=== PATIENT | female | born 1940 | race Caucasian/White ===

== ENCOUNTER 2018-03-28 05:50 | Day surgery (SDC) | payer MEDICARE ==
[2018-03-28] MEDS ORDERED: DIPRIVAN 200 MG/20 ML IV ONE (05:51)
[2018-03-28] MEDS ORDERED: Lactated Ringers 1,000 ML IV SCH (06:00)
[2018-03-28 08:07] VITALS: O2SAT 100
[2018-03-28 08:41] VITALS: BP 160/82; PULSE 62
--- NOTE | 2018-03-28 08:53 | HP ---
DATE OF SURGERY: 03/28/2018 HISTORY OF PRESENT ILLNESS: The patient is a 77 year-old with anemia unclear etiology, no bloody stool, no prior history of colonoscopy. Family history negative for colon cancer. She denies any bowel movement pain. No change in bowel movements. She has had anemia. She is in need of upper and lower endoscopy for further evaluation. PAST MEDICAL HISTORY: Diabetes, renal disease, hyperlipidemia and some reflux, hypothyroidism. PAST SURGICAL HISTORY: Coronary artery bypass graft. Hysterectomy in the past. MEDICATIONS: Amlodipine, atorvastatin, naphazoline eye drops, Bystolic, cholecalciferol, clonazepam, fluconazole, Furosemide, ibandronate, isosorbide mononitrate, levothyroxine for hypothyroidism, Metformin, omeprazole, potassium chloride, Protabol injection in the past, tramadol, triamcinolone cream, Voltaren gel. ALLERGIES: AMOXICILLIN, ASPIRIN, BACITRACIN, BETAMETHASONE, CEFPODOXIME. FAMILY HISTORY: Heart disease. Negative for colon cancer. SOCIAL HISTORY: No smoking or alcohol abuse. REVIEW OF SYSTEMS: Twelve systems reviewed pertinent for as noted above. No chest pain or palpitations other systems negative or noncontributory as above and per multiple medical problems as mentioned above. PHYSICAL EXAMINATION: GENERAL: No acute distress. HEENT: Sclerae nonicteric. NECK: No JVD. CHEST: Equal excursion, nonlabored breathing. CVS: Regular rate and rhythm. ABDOMEN: Soft. No peritoneal signs. EXTREMITIES: No significant edema. NEURO: Alert, oriented, moving extremities symmetrically. No gross motor deficits noted. RECTAL: Deferred timed to endoscopy exam. IMPRESSION: Anemia of unclear etiology. I feel she would benefit from upper and lower endoscopy for further evaluation, shown the risk sheet and explained the procedure in detail but not limited to bleeding or infection, small risk of bowel injury or perforation possibly requiring further procedure, risk of missed or nondiagnosis or incomplete exam possibly requiring barium enema, other studies or procedures, general risk of anesthesia or sedation, risk of bowel prep but not limited to. She understands and agrees to the planned procedure, will proceed with EGD and colonoscopy as an outpatient. She understands the possibility may not be able to determine the etiology of her anemia. 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 She understands and agrees to the planned procedure. Will proceed with colonoscopy and EGD as an outpatient.
--- NOTE | 2018-03-28 09:27 | OP ---
SURGERY DATE/TIME: 03/28/2018 0706 PREOPERATIVE DIAGNOSES: Anemia of unclear etiology; rule out upper and lower GI sources. POSTOPERATIVE DIAGNOSES: 1) Minimal gastritis. 2) Small patchy inflammation proximal esophagus. 3) Small area of inflammation mid body of stomach. 4) Mild diverticulosis. 5) Small internal/external hemorrhoids. 6) Small polyp ascending colon. 7) Small raised lesion versus hyperplastic lesion rectum. PROCEDURES: 1) EGD with cold biopsy of the antrum to evaluate for Helicobacter pylori. 2) Biopsy mid body area of inflammation. 3) Cold biopsy proximal esophagus inflamed area near gastroesophageal junction. 4) Cold biopsy of thickened area gastric side of gastroesophageal junction. 5) Colonoscopy to terminal ileum. 6) Retrograde ileoscopy. 7) Random cold biopsy of the ileum. 8) Hot biopsy removal small ascending colon polyps x2. 9) Hot biopsy small raised lesion versus hyperplastic lesion of rectum. SURGEON: Dr. Patrick Thompson. ANESTHESIA: MAC. ESTIMATED BLOOD LOSS: Minimal. INDICATIONS: As noted above. Risks and benefits explained in detail and not limited to and consent obtained. DESCRIPTION OF PROCEDURE AND FINDINGS: The patient is taken to the operating room/endoscopy suite. MAC anesthesia introduced. After official time out and no disagreement with planned procedure a bite block positioned. Video gastroscope easily passed down the esophagus through the gastroesophageal junction about 38 cm though the patent pylorus to the junction of second and third portion of the duodenum. Duodenum and duodenal bulb grossly unremarkable. Scope pulled back in the stomach and had some minimal gastritis. Cold biopsy taken for JENELLE-test in the antrum. There was a mid body patchy area of inflammation. Cold biopsy taken for further evaluation. Good hemostasis noted. On retroflex the gastroesophageal junction was snug against the scope. No signs of any hiatal hernia. There was a little erythematous area 1 cm or two from the gastroesophageal junction. Cold biopsy is taken, this appeared to have adequate hemostasis. Scope is straightened. Gastroesophageal junction is about 38 cm. Z-line fairly crisp. There was a little thickening at the gastric side of the gastroesophageal junction this was biopsied for completeness to rule out other etiology. Otherwise the remainder of the esophagus other than being a little bit of patulous esophagus with some tertiary contractions there were no signs of any obvious masses on withdrawal of the scope. Attention is then turned to the colonoscopy part of the exam. Digital rectal exam did not reveal any rectal masses. She did have some small internal and external hemorrhoids. There were no palpable mass. Video colonoscope inserted and passed up through the tortuous sigmoid, descending, transverse and ascending colon around to the right lower quadrant. Appendiceal orifice and valve well visualized. The scope was able to be passed up the terminal ileum. Retrograde ileoscopy was performed which was grossly unremarkable. Given her symptoms a random cold biopsies were taken to evaluate for other sources of anemia. Good hemostasis noted. Scope pulled back in the ascending colon. There were two small polyps one was removed with hot biopsy forceps with brief bursts of cautery in the ascending colon and the second one was removed in two pieces. It appeared to be removed completely with brief bursts of cautery. Good hemostasis noted. The scope was then slowly and carefully withdrawn. Prep overall was fair. A little bit of liquidy semisolid stool suction irrigated as well as possible. Slow careful withdrawal of the scope for 10 to 12 minutes. No signs of any large polyps, masses or obstructing lesions. Back in the rectum there were two or three very small 2 mm raised hyperplastic lesions versus early polyps these were removed with hot biopsy forceps with brief bursts of cautery. Otherwise she had some internal and external hemorrhoids. She had a few diverticula in the left colon but no signs of any large polyps, masses or obstructing lesions. The scope is withdrawn. There is no family or friends available here to discuss the findings with. There is no major source of her anemia identified, pending path results. As she had persistent anemia she may need further work up either refer to GI for consideration of PillCam versus checking a CT to rule out other etiology of anemia versus follow up with a selenium plant operator.
== END 2018-03-28 08:55 | disposition home or self-care (01) ==
LOC: SDC 05:50
PROVIDERS: ATTEND Surgery
DX: K29.70 Gastritis, unspecified, without bleeding (principal); K20.9 Esophagitis, unspecified; D64.9 Anemia, unspecified; K57.90 Diverticulosis of intestine, part unspecified, without perforation or abscess without bleeding; K64.4 Residual hemorrhoidal skin tags; K64.8 Other hemorrhoids; K63.5 Polyp of colon; K62.9 Disease of anus and rectum, unspecified; E11.9 Type 2 diabetes mellitus without complications; Z79.4 Long term (current) use of insulin; I25.810 Atherosclerosis of coronary artery bypass graft(s) without angina pectoris; N28.9 Disorder of kidney and ureter, unspecified; E78.5 Hyperlipidemia, unspecified; K21.9 Gastro-esophageal reflux disease without esophagitis; E03.9 Hypothyroidism, unspecified; Z79.899 Other long term (current) drug therapy
CPT/HCPCS: 87081; 88305; 94250; 99100; J2704

== ENCOUNTER 2018-08-08 08:20 | Day surgery (SDC) | payer MEDICARE ==
[2018-08-08] MEDS ORDERED: Ketamine HCl 50 MG/ML IV ONE (08:21)
[2018-08-08] MEDS ORDERED: DIPRIVAN 200 MG/20 ML IV ONE (08:21)
[2018-08-08] MEDS ORDERED: Lactated Ringers 1,000 ML IV ONE (08:28)
[2018-08-08] MEDS ORDERED: Lactated Ringers 1,000 ML IV SCH (08:30)
--- NOTE | 2018-08-08 09:49 | HP ---
DATE OF SURGERY: 08/08/2018 HISTORY OF PRESENT ILLNESS: The patient is a 78 year-old with endoscopy back in March with some polyps at that time and gastropathy. Recently she had a CT scan with question of periaortic adenopathy, question whether she had distal esophageal mass. There was no obvious mass back in March. Given the CT findings recently I felt she warrants upper endoscopy re-evaluation as well as referral for endoscopic ultrasound for further evaluation. She did have recent thyroid biopsy with some benign follicular cells with some simple features with absent colloid that was benign per the pathologist. PAST MEDICAL HISTORY: Diabetes, renal disease, hyperkalemia, reflux, hypothyroidism. She has had colon polyps in the past. PAST SURGICAL HISTORY: She had upper and lower endoscopy in the past. Hysterectomy in the past. Coronary artery bypass graft in the past. MEDICATIONS: Amlodipine, atorvastatin, eye drops, Bystolic, cholecalciferol, fluconazole, Furosemide, ibandronate, isosorbide mononitrate, levothyroxine for hypothyroidism, Metformin. She is on omeprazole, potassium chloride, Protabol injection in the past, tramadol, triamcinolone cream, Voltaren gel. ALLERGIES: AMOXICILLIN, ASPIRIN, BACITRACIN, BETAMETHASONE, CEFPODOXIME. FAMILY HISTORY: Heart disease. Negative for esophageal or colon cancer. SOCIAL HISTORY: No smoking or alcohol abuse. REVIEW OF SYSTEMS: Twelve systems reviewed pertinent for as noted above. No chest pain or palpitations other systems negative or noncontributory as above and per multiple medical problems as mentioned above. PHYSICAL EXAMINATION: GENERAL: No acute distress. HEENT: Sclerae nonicteric. NECK: No JVD. CHEST: Equal excursion, nonlabored breathing. CVS: Regular rate and rhythm. ABDOMEN: Soft. No peritoneal signs. EXTREMITIES: No significant edema. NEURO: Alert, oriented, moving extremities symmetrically. No gross motor deficits noted. RECTAL: Deferred timed to endoscopy exam. IMPRESSION: Some vague adenopathy unclear etiology. CT scan showed thickening distal esophagus. She did not have apparent mass back there about six months ago but given the recent CT findings, I feel she warrants follow up upper endoscopy as well as endoscopic ultrasound and colonoscope. She had colonoscope that showed some small tubular adenoma or small polyp, no obvious mass to account for her adenopathy. She is not interested in follow up colonoscopy currently but if all of her studies all are negative may need to consider that versus laparoscopy and laparotomy for further evaluation. Otherwise general risk explained of upper endoscopy possible biopsy, risk of bleeding or infection, risk of bowel injury or perforation possibly requiring further procedure, risk of missed or nondiagnosis or inability to diagnose the etiology of her symptoms possibly requiring other procedures, general risk of anesthesia or sedation but not limited to. She understands and agrees to the planned procedure, will proceed with EGD possible biopsy as an outpatient.
[2018-08-08 12:37] VITALS: BP 164/58; PULSE 64; O2SAT 95
--- NOTE | 2018-08-08 13:20 | OP ---
SURGERY DATE/TIME: 08/08/2018 1047 PREOPERATIVE DIAGNOSES: 1) History of some periaortic adenopathy of unclear etiology. 2) History of thickening distal esophagus on CT scan, need for follow up upper endoscopy. POSTOPERATIVE DIAGNOSIS: Mild gastritis. PROCEDURES: 1) EGD with cold biopsy of the antrum to evaluate for Helicobacter pylori. 2) Multiple cold biopsies of inflammation on gastric side of the gastroesophageal junction. 3) Multiple cold biopsies of distal esophagus. SURGEON: Dr. Patrick Thompson. ANESTHESIA: MAC. ESTIMATED BLOOD LOSS: Minimal. INDICATIONS: As noted above. Risks and benefits explained in detail and not limited to and consent obtained. DESCRIPTION OF PROCEDURE AND FINDINGS: The patient is taken to the operating room. MAC anesthesia introduced. After official time out and no disagreement with planned procedure, a bite block positioned. Video gastroscope easily passed down through the esophagus. She had a little bit of patulous, whether she had a little bit of a Schatzki's ring, there was no obstruction in this area that required dilation. She had not been complaining of problems, just the esophagus a little more patulous proximal to that area. Scope easily passed through there. The gastroesophageal junction itself was fairly crisp with some mild inflammation proximally. No evidence of any obvious esophageal mass. Scope passed though the patent pylorus to the junction of the second and third portion of the duodenum. Duodenum and duodenal bulb grossly unremarkable. Back in the stomach there is minimal erythema and cold biopsy taken to evaluate for Helicobacter pylori. On retroflex right at the gastroesophageal junction there was some inflammation on the gastric-side of the gastroesophageal junction. Multiple cold biopsies were taken for definitive path. This appeared more inflammatory than neoplastic but biopsy for completeness. This did not appear to have been there previously. The scope was straightened. The gastroesophageal junction about 33 cm. Z-line was fairly crisp. Multiple biopsies had been taken of this inflammation on the gastric side of the gastroesophageal junction. Multiple biopsies were also taken on the esophageal side of distal esophagus given the CT scan findings but there was no obvious visible esophageal mass. Other than that she had a little bit questionable early Schatzki's ring to the esophagus a little more proximal to this but this is not an obstructing point at this point. It did not require dilatation. The remainder of the esophagus grossly is unremarkable. Scope is withdrawn. The patient tolerated the procedure well. There was no family here to discuss the findings with. Await final path report. The patient also has an endoscopic ultrasound pending to evaluate her periaortic adenopathy.
== END 2018-08-08 12:30 | disposition home or self-care (01) ==
LOC: SDC 08:20
PROVIDERS: ATTEND Surgery
DX: K29.70 Gastritis, unspecified, without bleeding (principal); K31.7 Polyp of stomach and duodenum
CPT/HCPCS: 87081; 88305; 99100; J2704

== ENCOUNTER 2019-03-21 07:20 | Day surgery (SDC) | payer MEDICARE ==
[~2019-03-21 07:20] MED LIST: Lactated Ringers 1,000 ML IV SCH; TETRACAINE 0.5% STERI-UNIT SOL OP ONE; [UNRECOGNIZED DRUG - OTHER] OP ONE
[2019-03-21] MEDS ORDERED: Lactated Ringers 1,000 ML IV ONE (07:34)
[2019-03-21] MEDS ORDERED: Zofran 4 MG/2 ML VIAL IV PRN (09:00)
[2019-03-21] MEDS ORDERED: ACETAZOLAMIDE 250 MG TABLET PO ONE (09:00)
[2019-03-21] MEDS ORDERED: DIPRIVAN 200 MG/20 ML IV ONE (09:37)
[2019-03-21] MEDS ORDERED: LIDOCAINE HCL 1% AMPUL 5 ML IJ ONE (10:00)
[2019-03-21] MEDS ORDERED: BETADINE 5% OPHTHALMIC 30 ML OP ONE (10:00)
[2019-03-21] MEDS ORDERED: Epinephrine Preservative Free 1 MG/ML INTRAOP ONE (10:00)
[2019-03-21 10:53] VITALS: BP 155/64; PULSE 66; O2SAT 98
--- NOTE | 2019-03-21 13:47 | OP ---
DATE/TIME OF OPERATION: 03/21/2019 0947 TIME DICTATED: 1307 PREOPERATIVE DIAGNOSIS: Senile cataract of left eye. POSTOPERATIVE DIAGNOSIS: Senile cataract of left eye. SURGEON: Rabia Monsivais MD PICTURES EDITOR: None. OPERATION: Cataract extraction of left eye with an intraocular lens implant. STANDARD __X___ COMPLEX ANESTHESIA: MAC. ___X___ Monitored anesthesia care in combination with topical and intra-cameral anesthesia (because of the established specific risk of reflux, arrhythmias, or an anxiety attack associated with ocular manipulation as well as difficulty of the hotel room attendant to manage such potentially catastrophic events while simultaneously attempting to complete the surgical procedure, it was deemed necessary for the patient's safety to have an anesthesiologist or a nurse boston cutter present during the procedure whenever possible. The anesthesiologist or the nurse boston cutter was utilized to monitor and regulate the intravenous sedation of the patient, so the patient was cooperative, relaxed, and comfortable). Topical anesthesia using Tetracaine eye drops together with intra cameral anesthesia using Lidocaine 1% MPF. The nurse was utilized to monitor the patient. ANESTHESIA PROVIDER: Deondre Ballard CRNA. COMPLICATIONS: None. BLOOD LOSS: None. INDICATIONS: The patient is undergoing cataract surgery in the hopes of eliminating the visual complaints and difficulty. PROCEDURE: After arriving at the facility's outpatient surgery area, an IV was started; the patient was given 5 mg of p.o. Versed. (If an anesthesia provider was not monitoring the patient) The patient was then given topical anesthetic Tetracaine eye drops. A cotton pellet was soaked into a solution of a combination of Zymaxid 0.5%, Chris-Synephrine 2.5% and Ocufen (other drops might have been substituted referenced in the patient's record). The pellet was inserted by the RN into the lower conjunctival cul-de-sac with a sterile forceps and left for 20 minutes. The pellet was then removed by the RN with a sterile forceps before taking the patient to the operating room. The preoperative area nurse identified the patient and marked the correct eye to be operated on. I identified the correct eye to be operated on and marked it appropriately in the outpatient surgery area. The patient was then taken into the operating room. Tetracaine eye drops were installed again in the correct eye. The eyelids and the lashes and the lid margins were scrubbed with Betadine solution. One drop of the diluted Betadine solution was placed in the conjunctival cul-de-sac for 45 seconds and then was irrigated. A drop of Tetracaine Gel was placed in the conjunctival cul-de-sac. The patient's forehead was taped to secure it during the procedure. The patient was monitored. The patient was then draped in the usual way for this procedure. An eye speculum was used to separate the eyelids. The eye was then fixated and a temporal 2.5 mm incision was made in the clear cornea temporally at the limbus. Through the incision, 0.25 cc of 1% non-preserved lidocaine was injected into the anterior chamber for intracameral anesthesia. The anterior chamber was then filled with viscoelastic. The pupil was small. I felt that it would be safer to mechanically dilate the pupil. A Malyugin ring was used at this point which dilated the pupil. That was removed at the end of the procedure prior to aspiration of the viscoelastic from the anterior chamber and posterior to the intraocular lens implant. The cataract had a great amount of cortical changes. That rendered seeing the anterior capsule difficult for a safe performance of an anterior capsulotomy. I injected an air bubble into the anterior chamber. I then injected 1 ML of vision blue solution into the anterior chamber. The vision blue solution was irrigated from the anterior chamber after 30 seconds. The anterior capsule was stained which facilitated performing the anterior capsulotomy safely. After that was completed, a cystotome was introduced into the anterior chamber and a round anterior capsulotomy was performed. The capsule was removed by a forceps. Hydrodissection was next carried utilizing a 25-gauge cannula and balanced salt solution to delineate the cortical material from the capsule and the nucleus from the cortical material. The nucleus was rotated freely into the capsular bag with no difficulty. The phaco tip of the [employer] Phacoemulsifier was introduced into the anterior chamber and two grooves were made into the nucleus 90 degrees apart. Using two spatulas resulted into the nucleus being fractured into four quadrants. The phaco tip was then used to remove each quadrant of the nucleus. Viscoelastic was used during this process to protect the corneal endothelium. Once the entire nucleus was removed, the phaco tip then was removed and the irrigation tip was introduced into the eye and the cortex was removed. The posterior capsule was polished. It was noticed that there was a tear into the posterior capsule with few vitreous strands into the pupil plan. An anterior vitrectomy was performed. A 29.50 diopter, [id number], posterior chamber lens implant, was inspected and found to be grossly normal. The implant was inserted into the implant injector cartridge; Viscoelastic again was introduced into the anterior chamber, which filled the capsular bag. The implant injector's cartridge tip was placed at the limbal wound and the posterior chamber implant was released into the capsular bag and rotated appropriately. The implant was found to be into the capsular bag and it was centered. 0.2 ml of Tri-Moxi was introduced via 27 gauge cannula into the vitreous cavity through the ciliary processes. Viscoelastic was aspirated from the anterior chamber and posterior to the intraocular lens implant from the capsular bag using the irrigating tip. The anterior chamber was irrigated and filled with 5 cc antibiotic solution (500 cc of BSS plus 2 ml of Fortaz 100 mg/ml) ( if patient was not allergic to the medication). The lips of the corneal incision were hydrated using BSS solution. The anterior chamber was checked and found to be water tight. ___X___ One drop each of antibiotic, steroid and NSAID drops (refer to chart for drops used) were placed in the conjunctival cul-de-sac of the operated eye. Patient tolerated the procedure quite well and left the operating room in satisfactory condition. DISCHARGE SUMMARY: The patient was released in stable condition. The patient and those with the patient were given an instruction sheet as of how to care for the eye after surgery as well as counseling on any abnormal laboratory studies by the postoperative RN. The patient was also given an appointment card for follow-up in the office and is to call immediately for any difficulties including but not limited to pain in the eye, decreased vision, discharge from the eye, headache and or fever. DISCHARGE DIAGNOSIS: Pseudophakia of left eye.
== END 2019-03-21 11:10 | disposition home or self-care (01) ==
LOC: SDC 07:20
PROVIDERS: ATTEND Ophthalmology
DX: H25.812 Combined forms of age-related cataract, left eye (principal); E11.9 Type 2 diabetes mellitus without complications; I10 Essential (primary) hypertension; I51.9 Heart disease, unspecified; E78.00 Pure hypercholesterolemia, unspecified; E03.9 Hypothyroidism, unspecified; Z79.899 Other long term (current) drug therapy
CPT/HCPCS: 82962; 99100; C1780; J0171; J2704; A9270-GY

== ENCOUNTER 2019-05-23 08:54 | Day surgery (SDC) | payer MEDICARE ==
[~2019-05-23 08:54] MED LIST changes: +ACETAZOLAMIDE 250 MG TABLET PO ONE; +NON-FORMULARY ITEM OP ONE; +Zofran 4 MG/2 ML VIAL IV PRN
[2019-05-23] MEDS ORDERED: Lactated Ringers 1,000 ML IV ONE ×2 (09:06→11:37)
[2019-05-23] MEDS ORDERED: BETADINE 5% OPHTHALMIC 30 ML OP ONE (10:00)
[2019-05-23] MEDS ORDERED: Epinephrine Preservative Free 1 MG/ML INTRAOP ONE (10:00)
[2019-05-23] MEDS ORDERED: LIDOCAINE HCL 1% AMPUL 5 ML IJ ONE (10:00)
[2019-05-23] MEDS ORDERED: DIPRIVAN 200 MG/20 ML IV ONE (11:48)
[2019-05-23 13:14] VITALS: O2SAT 97
[2019-05-23 13:21] VITALS: BP 153/61; PULSE 62
--- NOTE | 2019-05-23 13:54 | OP ---
DATE/TIME OF OPERATION: 05/23/2019 1148 TIME DICTATED: 1256 PREOPERATIVE DIAGNOSIS: Senile cataract of right eye. POSTOPERATIVE DIAGNOSIS: Senile cataract of right eye. SURGEON: Rabia Monsivais MD SHEET [employer]OP FOREMAN: None. OPERATION: Cataract extraction of right eye with an intraocular lens implant. STANDARD __X__ COMPLEX ANESTHESIA: MAC. 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 The anesthesiologist or the nurse smooth plater was utilized to monitor and regulate the intravenous sedation of the patient, so the patient was cooperative, relaxed, and comfortable). Topical anesthesia using Tetracaine eye drops together with intra cameral anesthesia using Lidocaine 1% MPF. The nurse was utilized to monitor the patient. ANESTHESIA PROVIDER: Deondre Ballard CRNA. COMPLICATIONS: None. BLOOD LOSS: None. INDICATIONS: The patient is undergoing cataract surgery in the hopes of eliminating the visual complaints and difficulty. PROCEDURE: After arriving at the facility's outpatient surgery area, an IV was started; the patient was given 5 mg of p.o. Versed. (If an anesthesia provider was not monitoring the patient) The patient was then given topical anesthetic Tetracaine eye drops. A cotton pellet was soaked into a solution of a combination of Zymaxid 0.5%, Chris-Synephrine 2.5% and Ocufen (other drops might have been substituted referenced in the patient's record). The pellet was inserted by the RN into the lower conjunctival cul-de-sac with a sterile forceps and left for 20 minutes. The pellet was then removed by the RN with a sterile forceps before taking the patient to the operating room. The preoperative area nurse identified the patient and marked the correct eye to be operated on. I identified the correct eye to be operated on and marked it appropriately in the outpatient surgery area. The patient was then taken into the operating room. Tetracaine eye drops were installed again in the correct eye. The eyelids and the lashes and the lid margins were scrubbed with Betadine solution. One drop of the diluted Betadine solution was placed in the conjunctival cul-de-sac for 45 seconds and then was irrigated. A drop of Tetracaine Gel was placed in the conjunctival cul-de-sac. The patient's forehead was taped to secure it during the procedure. The patient was monitored. The patient was then draped in the usual way for this procedure. An eye speculum was used to separate the eyelids. The eye was then fixated and a temporal 2.5 mm incision was made in the clear cornea temporally at the limbus. Through the incision, 0.25 cc of 1% non-preserved lidocaine was injected into the anterior chamber for intracameral anesthesia. The anterior chamber was then filled with viscoelastic. The pupil was small. I felt that it would be safer to mechanically dilate the pupil. A Malyugin ring was used at this point which dilated the pupil. That was removed at the end of the procedure prior to aspiration of the viscoelastic from the anterior chamber and posterior to the intraocular lens implant. The cataract had a great amount of cortical changes. That rendered seeing the anterior capsule difficult for a safe performance of an anterior capsulotomy. I injected an air bubble into the anterior chamber. I then injected 1 ML of vision blue solution into the anterior chamber. The vision blue solution was irrigated from the anterior chamber after 30 seconds. The anterior capsule was stained which facilitated performing the anterior capsulotomy safely. After that was completed, a cystotome was introduced into the anterior chamber and a round anterior capsulotomy was performed. The capsule was removed by a forceps. Hydrodissection was next carried utilizing a 25-gauge cannula and balanced salt solution to delineate the cortical material from the capsule and the nucleus from the cortical material. The nucleus was rotated freely into the capsular bag with no difficulty. The phaco tip of the [employer] Phacoemulsifier was introduced into the anterior chamber and two grooves were made into the nucleus 90 degrees apart. Using two spatulas resulted into the nucleus being fractured into four quadrants. The phaco tip was then used to remove each quadrant of the nucleus. Viscoelastic was used during this process to protect the corneal endothelium. Once the entire nucleus was removed, the phaco tip then was removed and the irrigation tip was introduced into the eye and the cortex was removed. The posterior capsule was polished. It was noticed that there was a tear into the posterior capsule with few vitreous strands into the pupil plan. An anterior vitrectomy was performed. A 25.00 diopter, [id number], posterior chamber lens implant, was inspected and found to be grossly normal. The implant was inserted into the implant injector cartridge; Viscoelastic again was introduced into the anterior chamber, which filled the capsular bag. The implant injector's cartridge tip was placed at the limbal wound and the posterior chamber implant was released into the capsular bag and rotated appropriately. The implant was found to be into the capsular bag and it was centered. 0.2 ml of Tri-Moxi was introduced via 27 gauge cannula into the vitreous cavity through the ciliary processes. Viscoelastic was aspirated from the anterior chamber and posterior to the intraocular lens implant from the capsular bag using the irrigating tip. The anterior chamber was irrigated and filled with 5 cc antibiotic solution (500 cc of BSS plus 2 ml of Fortaz 100 mg/ml) ( if patient was not allergic to the medication). The lips of the corneal incision were hydrated using BSS solution. The anterior chamber was checked and found to be water tight. ___X___ One drop each of antibiotic, steroid and NSAID drops (refer to chart for drops used) were placed in the conjunctival cul-de-sac of the operated eye. Patient tolerated the procedure quite well and left the operating room in satisfactory condition. DISCHARGE SUMMARY: The patient was released in stable condition. The patient and those with the patient were given an instruction sheet as of how to care for the eye after surgery as well as counseling on any abnormal laboratory studies by the postoperative RN. The patient was also given an appointment card for follow-up in the office and is to call immediately for any difficulties including but not limited to pain in the eye, decreased vision, discharge from the eye, headache and or fever. DISCHARGE DIAGNOSIS: Pseudophakia of right eye.
== END 2019-05-23 13:32 | disposition home or self-care (01) ==
LOC: SDC 08:54
PROVIDERS: ATTEND Ophthalmology
DX: H25.9 Unspecified age-related cataract (principal); I10 Essential (primary) hypertension; E03.9 Hypothyroidism, unspecified; E11.9 Type 2 diabetes mellitus without complications; F41.9 Anxiety disorder, unspecified; K21.9 Gastro-esophageal reflux disease without esophagitis; Z79.899 Other long term (current) drug therapy
CPT/HCPCS: 99100; C1780; J0171; J2704; A9270-GY

== ENCOUNTER 2021-02-07 08:43 | Inpatient (IN) | payer MEDICARE ==
--- NOTE | 2021-02-07 09:28 | ERPHSYRPT ---
- History of Present Illness Source: patient Exam Limitations: other (Poor historian) Patient Subjective Stated Complaint: pt here for a fal last night, she was unable to get up and was on floor all night, she called 911 this am, pt states she fell on her left side. Triage Nursing Assessment: pt alert, face mask in place, skin w/d/p. pt has scattered localized edema to both arms, bruising to left shoulder, bruising and skin abrasion to left elbow, moves all ext Physician History: 80 yo wf arrived per EMS after fall approx 19:00 02/06/21. Pt fell in bathroom and crawled to living room. She slipped and fell. Pt hit her head but denies LOC. She denies chest pain/dyspnea/fever. Pt complains of R posterior thoracic pain/L olecranon pain/L hip pain. Occurred: other (19:00 02/06/21) Reason for Fall: lost balance Injuries/Pain Location: head, back, pelvis Loss of Consciousness: no loss of consciousness Quality: aching Severity of Pain-Max: moderate Severity of Pain-Current: mild Modifying Factors: Improves With: movement Associated Symptoms (Fall): back pain, extremity injury, headache, No abdominal pain, No confusion, No chest pain, No dizziness, No lightheadedness, No muscle spasms, No nausea, No neck pain, No ringing in ears, No seizures, No shortness of breath, No slurred speech, No trouble walking, No vomiting, No vision changes Allergies/Adverse Reactions: amoxicillin [From Augmentin] Allergy (Unknown, Verified 02/07/21 09:01) pt states "i don't really know why all those are on my list and i have never had a really bad reaction from anything". aspirin Allergy (Unknown, Verified 02/07/21 09:01) bacitracin [From Neosporin ([id number])] Allergy (Unknown, Verified 02/07/21 09:01) betamethasone [From Lotrisone] Allergy (Unknown, Verified 02/07/21 09:01) cefpodoxime [From Vantin] Allergy (Unknown, Verified 02/07/21 09:01) cephalexin [From Keflex] Allergy (Unknown, Verified 02/07/21 09:01) cetirizine [From Zyrtec] Allergy (Unknown, Verified 02/07/21:) ciprofloxacin [From Cipro] Allergy (Unknown, Verified 02/07/21 09:) clavulanic acid [From Augmentin] Allergy (Unknown, Verified 02/07/21:) clotrimazole [From Lotrisone] Allergy (Unknown, Verified 02/07/21 09:) codeine Allergy (Unknown, Verified 02/07/21 09:) enalaprilat [From Vasotec] Allergy (Unknown, Verified 02/07/21 09:) fluconazole [From Diflucan] Allergy (Unknown, Verified 02/07/21:) gabapentin [From Neurontin] Allergy (Unknown, Verified 02/07/21:) halobetasol [From Ultravate] Allergy (Unknown, Verified 02/07/21:) itraconazole [From Sporanox] Allergy (Unknown, Verified 02/07/21:) ketoconazole [From Nizoral] Allergy (Unknown, Verified 02/07/21:) lansoprazole [From Prevacid] Allergy (Unknown, Verified 02/07/21:) levofloxacin [From Levaquin] Allergy (Unknown, Verified 02/07/21:) metformin Allergy (Unknown, Verified 02/07/21:) mirtazapine [From Remeron] Allergy (Unknown, Verified 02/07/21 09:) moxifloxacin [From Avelox] Allergy (Unknown, Verified 02/07/21 09:) naproxen [From Naprelan] Allergy (Unknown, Verified 02/07/21 09:) neomycin [From Neosporin ([id number])] Allergy (Unknown, Verified 02/07/21 09:) oxycodone [From Percodan] Allergy (Unknown, Verified 02/07/21 09:) polymyxin B [From Neosporin ([id number])] Allergy (Unknown, Verified 02/07/21 09:) prednisone Allergy (Unknown, Verified 02/07/21 09:) pregabalin [From Lyrica] Allergy (Unknown, Verified 02/07/21 09:) promethazine [From Phenergan] Allergy (Unknown, Verified 02/07/21 09:01) sulindac [From Clinoril] Allergy (Unknown, Verified 02/07/21 09:01) venlafaxine [From Effexor] Allergy (Unknown, Verified 02/07/21 09:01) Home Medications: Amlodipine Besylate 5 mg [Norvasc 5 mg] 5 mg PO DAILY 03/22/18 [History] Cholecalciferol (Vitamin D3) [Vitamin D3] 2,000 unit PO DAILY 03/22/18 [History] Clonazepam 0.5 mg [Klonopin 0.5 MG] 0.5 mg PO BID PRN 03/22/18 [History] Ibandronate Sodium [Boniva] 150 mg PO UD 03/22/18 [History] Omeprazole 20 mg PO DAILY 03/22/18 [History] Potassium Chloride [Klor-Con M20] 20 meq PO BID 03/22/18 [History] Nebivolol HCl [Bystolic] 10 mg PO DAILY 03/10/19 [History] Clopidogrel Bisulfate 75 mg [PLAVIX 75 MG Tablet] 75 mg PO DAILY 02/07/21 [History] Levothyroxine Sodium [Euthyrox] 75 mcg PO DAILY 02/07/21 [History] Hx Influenza Vaccination/Date Given: No Hx Pneumococcal Vaccination/Date Given: Yes Immunizations Up to Date: Yes Travel Risk - International Travel Have you traveled outside of the country in past 3 weeks: No - Coronavirus Screening Are you exhibiting any of the following symptoms?: No Close contact with a COVID-19 positive Pt in past 14-21 Days: No - Vaccine Status Have you recieved a Covid-19 vaccination: Yes Smash [employer]: [employer] - Vaccination Dates Dates if Unknown: ? - Review of Systems Constitutional: No Symptoms Eyes: No Symptoms Ears, Nose, & Throat: No Symptoms Respiratory: No Symptoms Cardiac: No Symptoms Abdominal/Gastrointestinal: No Symptoms Genitourinary Symptoms: No Symptoms Musculoskeletal: No Symptoms, Arthralgias, Back Pain, Fall, Injury, No Neck Pain Skin: No Symptoms Neurological: No Symptoms Psychological: No Symptoms Endocrine: No Symptoms Hematologic/Lymphatic: No Symptoms Immunological/Allergic: No Symptoms - Past Medical History Pertinent Past Medical History: Yes Neurological History: No Pertinent History ENT History: No Pertinent History Cardiac History: Hypertension Respiratory History: No Pertinent History Endocrine Medical History: Diabetes Type II Musculoskeletal History: No Pertinent History GI Medical History: Hemorrhoids History: Renal Disease Psycho-Social History: No Pertinent History Female Reproductive Disorders: No Pertinent History - Past Surgical History Past Surgical History: Yes Neuro Surgical History: No Pertinent History Cardiac: Cardiac Stent Respiratory: No Pertinent History Gastrointestinal: Cholecystectomy, Hemorrhoidectomy Genitourinary: No Pertinent History Musculoskeletal: Other Female Surgical History: Hysterectomy Other Surgical History: breast reduction, breast repair, lumps removed both breasts, feet surgery-"nerve damage fixed", right wrist " nerve surgery unknow" Biopsy of thyroid - Social History Smoking Status: Never smoker Exposure to second hand smoke: No Drug Use: none Patient Lives Alone: Yes Significant Family History: no pertinent family hx - Female History Hx Last Menstrual Period: post Hx Now: No - Nursing Vital Signs Nursing Vital Signs: Initial Vital Signs Temperature 97.5 F 02/07/21 08:50 Pulse Rate 79 02/07/21 08:50 Respiratory Rate 16 02/07/21 08:50 Blood Pressure 198/105 02/07/21 08:50 O2 Sat by Pulse Oximetry 98 02/07/21 08:50 Pain Scale Pain Intensity 3 Hypertensive - Severo Coma Score Best Eye Response (Severo): (4) open spontaneously Best Verbal Response (Severo): (5) oriented Best Motor Response (Sophia): (6) obeys commands Severo Total: 15 - Physical Exam General Appearance: no apparent distress Head Injury: tenderness (L frontal scalp/No laceration) Eye Exam: PERRL/EOMI, eyes nml inspection ENT Exam: airway nml, No evidence of ENT injury, No dental injury, No nml ext .inspection, No clear fluid (ears), No clear fluid (nose), No midface instability, No hemotympanum Neck Exam: supple, trachea midline, full range of motion, c-collar in place (C- collar removed because C-spine NTTP) Respiratory/Chest Exam: normal breath sounds, No chest tenderness, No respiratory distress, No crepitus, No decreased breath sounds Cardiovascular Exam: normal heart sounds, regular rate/rhythm, normal peripheral pulses, No murmur Gastrointestinal Exam: soft, normal bowel sounds, No tenderness Back Exam: other (TTP R posterior thorax) Extremity Exam: capillary refill <3 sec, pelvis stable, hip tenderness (L hip mildly TTP wo shortening or external rotation), No deformities, No motor deficit Peripheral Pulses: carotid (R): 2+, carotid (L): 2+ Neurologic Exam: alert, oriented x 3, cooperative, dining room helper II-XII nml as tested, normal mood/affect, sensation nml, No motor deficits, No sensory deficit Skin Exam: normal color, warm, dry, No rash SpO2 Interpretation: normal SpO2: 98 O2 Delivery: Room Air - Course Nursing assessment & vital signs reviewed: Yes EKG Interpreted by Me: RATE (NSR/IVCD/Old anterior DC/Prolonged QTc) - Radiology Exams Shoulder X-ray Interpretation: Discussed w/ radiologist (L shoulder neg) Elbow X-ray Interpretation: Discussed w/ radiologist (L olecranon neg) - CT Exams Head CT Interpretation: Discussed w/radiologist (NAD) Chest CT Interpretation: Discussed w/radiologist (R pleural effusion) Abdomen/Pelvis CT Interpretation: Discussed w/radiologist (Air in bladder) Ordered Tests: Active Orders 24 hr Category Date Time Status EKG-ER Only STAT Care 02/07/21 09:03 Completed Heart-Healthy Diet Diet 02/07/21 Dinner Active ABDOMEN AND PELVIS W/0 CONTRAS [CT] Stat Exams 02/07/21 09:06 Completed CHEST WITHOUT CONTRAST [CT] Stat Exams 02/07/21 09:04 Completed ELBOW (MINIMUM 3 VIEWS) Stat Exams 02/07/21 Completed HEAD WITHOUT CONTRAST [CT] Stat Exams 02/07/21 09:05 Completed SHOULDER Stat Exams 02/07/21 Completed CBC W DIFF AM.LAB Lab 02/08/21 04:00 Ordered CBC W DIFF Stat Lab 02/07/21 09:05 Completed CK (IN-HOUSE) [CK-Creatinine Phosphokinase] AM.LAB Lab 02/08/21 04:00 Ordered CK-Creatinine Phosphokinase Routine Lab 02/07/21 09:05 Completed CMP AM.LAB Lab 02/08/21 04:00 Ordered CMP Routine Lab 02/07/21 09:05 Completed CULTURE,URINE Stat Lab 02/07/21 11:17 Received PROTIME WITH INR Stat Lab 02/07/21 09:05 Completed PTT Stat Lab 02/07/21 09:05 Completed TROPONIN Q3H Lab 02/07/21 09:05 Completed TROPONIN Q3H Lab 02/07/21 12:10 Completed TROPONIN Q3H Lab 02/07/21 15:33 Completed TROPONIN Q3H Lab 02/07/21 18:21 Completed TROPONIN Q3H Lab 02/07/21 21:15 Completed UA W/RFX UR CULTURE Stat Lab 02/07/21 11:17 Completed Transfer Order Routine Transfer 02/07/21 Completed Medication Summary Generic Name Dose Route Start Last Admin Trade Name Freq PRN Reason Stop Dose Admin Hydrocodone Bitart/Acetaminophen 1 tab 02/07/21 12:06 Hydrocodone/Apap 5/325 Mg Tablet PO 02/12/21 12:05 QID PRN PRN PAIN Amlodipine Besylate 5 mg 02/07/21 17:00 02/07/21 17:01 Amlodipine Besylate 5 Mg Tablet PO 03/09/21 16:59 5 mg DAILY JOSE ANTONIO Administration Cholecalciferol 2,000 unit 02/07/21 17:00 02/07/21 17:01 Cholecalciferol (Vitamin D3) 1000 Unit Tablet PO 03/09/21 16:59 2,000 unit DAILY JOSE ANTONIO Administration Clonazepam 0.5 mg 02/07/21 16:22 02/07/21 21:26 Clonazepam 0.5 Mg Tablet PO 03/09/21 16:21 0.5 mg BID PRN PRN Administration ANXIETY Clopidogrel Bisulfate 75 mg 02/07/21 17:00 02/07/21 17:01 Clopidogrel Bisulfate 75 Mg Tablet PO 03/09/21 16:59 75 mg DAILY JOSE ANTONIO Administration Levothyroxine Sodium 75 mcg 02/07/21 17:00 02/07/21 17:01 Levothyroxine Sodium 75 Mcg Tablet PO 03/09/21 16:59 75 mcg DAILY JOSE ANTONIO Administration Nebivolol 10 mg 02/07/21 17:00 02/07/21 17:01 Nebivolol Hcl 5 Mg Tablet PO 03/09/21 16:59 10 mg DAILY JOSE ANTONIO Administration Ondansetron HCl 4 mg 02/07/21 12:01 Ondansetron Hcl 4 Mg/2 Ml Vial IV 03/09/21 12:00 Q6H PRN PRN NAUSEA/VOMITING Pantoprazole Sodium 40 mg 02/07/21 17:00 02/07/21 17:01 Protonix (Pantoprazole) 40 Mg Tablet PO 03/09/21 16:59 40 mg DAILY JOSE ANTONIO Administration Potassium Chloride 20 meq 02/07/21 22:00 02/07/21 21:25 Potassium Chloride 10 Meq Tablet PO 03/09/21 21:59 20 meq BID JOSE ANTONIO Administration Discontinued Medications Generic Name Dose Route Start Last Admin Trade Name Estevan PRN Reason Stop Dose Admin Fentanyl Citrate 50 mcg 02/07/21 10:53 02/07/21 11:04 Fentanyl Citrate 100 Mcg/2 Ml* Vial IV 02/07/21 10:54 Not Given STAT ONE Sodium Chloride 1,000 mls @ 80 mls/hr 02/07/21 12:15 02/07/21 16:34 Sodium Chloride 0.9% 1000 Ml IV 03/09/21 12:14 Not Given .[id number] JOSE ANTONIO Ondansetron HCl 4 mg 02/07/21 10:53 02/07/21 11:04 Ondansetron Hcl 4 Mg/2 Ml Vial IV 02/07/21 10:54 Not Given STAT ONE Pantoprazole Sodium 40 mg 02/07/21 15:00 02/07/21 16:34 Pantoprazole 40 Mg Vial IV 03/09/21 14:59 Not Given Q24H10 JOSE ANTONIO Trimethoprim/Sulfamethoxazole 1 tab 02/07/21 22:00 Smz/Tmp Ds Tablet 1 Tablet PO 03/09/21 21:59 BID JOSE ANTONIO Lab/Rad Data: Laboratory Result Diagrams 02/07/21 09:05 02/07/21 09:05 Laboratory Results 02/07/21 02/07/21 02/07/21 Range/Units 12:49 12:10 11:17 WBC (4.0-10.5) K/mm3 RBC (4.1-5.4) M/mm3 Hgb (12.0-16.0) gm/dl Hct (35-47) % MCV (78-100) fl MCH (26-32) pg MCHC (32-36) g/dl RDW (11.5-14.0) % Plt Count (150-450) K/mm3 MPV (7.5-11.0) fl Gran % (36.0-66.0) % Eos # (Auto) (0-0.5) Absolute Lymphs (auto) (1.0-4.6) Absolute Monos (auto) (0.0-1.3) Lymphocytes % (24.0-44.0) % Monocytes % (0.0-12.0) % Eosinophils % (0.00-5.0) % Basophils % (0.0-0.4) % Absolute Granulocytes (1.4-6.9) Basophils # (0-0.4) PT (9.4-12.5) SECONDS INR (0.8-3.0) APTT (25.1-36.5) SECONDS Sodium (137-145) mmol/L Potassium (3.5-5.1) mmol/L Chloride (98-107) mmol/L Carbon Dioxide (22-30) mmol/L Anion Gap (5-15) MEQ/L BUN (7-17) mg/dL Creatinine (0.52-1.04) mg/dL Estimated GFR ML/MIN Glucose (74-106) mg/dL Calcium (8.4-10.2) mg/dL Total Bilirubin (0.2-1.3) mg/dL AST (14-36) U/L ALT (0-35) U/L Alkaline Phosphatase (38-126) U/L Creatine Kinase (30-135) U/L Troponin I 0.014 (0.000-0.034) ng/mL Serum Total Protein (6.3-8.2) g/dL Albumin (3.5-5.0) g/dL Urine Color YELLOW (YELLOW) Urine Appearance CLOUDY (CLEAR) Urine pH 5.0 (5-6) Ur Specific Gilberts 1.020 (1.005-1.025) Urine Protein >=500 (Negative) Urine Ketones NEGATIVE (NEGATIVE) Urine Blood MODERATE (0-5) Corky/ul Urine Nitrite NEGATIVE (NEGATIVE) Urine Bilirubin NEGATIVE (NEGATIVE) Urine Urobilinogen NEGATIVE (0-1) mg/dL Ur Leukocyte Esterase NEGATIVE (NEGATIVE) Urine WBC (Auto) 51-100 (0-5) /HPF Urine RBC (Auto) 0-2 (0-2) /HPF U Epithel Cells (Auto) NONE (FEW) /HPF Urine Bacteria (Auto) MANY (NEGATIVE) /HPF Urine Culture Reflexed YES (NO) Urine Glucose 150 (NEGATIVE) mg/dL SARS-CoV-2 (PCR) NEGATIVE (NEGATIVE) 02/07/21 02/07/21 02/07/21 Range/Units 09:05 09:05 09:05 WBC 20.0 H (4.0-10.5) K/mm3 RBC 4.14 (4.1-5.4) M/mm3 Hgb 10.6 L (12.0-16.0) gm/dl Hct 34.4 L (35-47) % MCV 83.1 (78-100) fl MCH 25.6 L (26-32) pg MCHC 30.8 L (32-36) g/dl RDW 17.1 H (11.5-14.0) % Plt Count 547 H (150-450) K/mm3 MPV 10.9 (7.5-11.0) fl Gran % 86.2 H (36.0-66.0) % Eos # (Auto) 0.18 (0-0.5) Absolute Lymphs (auto) 1.31 (1.0-4.6) Absolute Monos (auto) 1.15 (0.0-1.3) Lymphocytes % 6.6 L (24.0-44.0) % Monocytes % 5.8 (0.0-12.0) % Eosinophils % 0.9 (0.00-5.0) % Basophils % 0.5 (0.0-0.4) % Absolute Granulocytes 17.23 H (1.4-6.9) Basophils # 0.09 (0-0.4) PT 13.9 H (9.4-12.5) SECONDS INR 1.18 (0.8-3.0) APTT 33.2 (25.1-36.5) SECONDS Sodium 145 (137-145) mmol/L Potassium 3.1 L (3.5-5.1) mmol/L Chloride 115 H (98-107) mmol/L Carbon Dioxide 18 L (22-30) mmol/L Anion Gap 15.1 H (5-15) MEQ/L BUN 34 H (7-17) mg/dL Creatinine 2.96 H (0.52-1.04) mg/dL Estimated GFR 16.2 ML/MIN Glucose 172 H (74-106) mg/dL Calcium 8.8 (8.4-10.2) mg/dL Total Bilirubin 0.50 (0.2-1.3) mg/dL AST 29 (14-36) U/L ALT 14 (0-35) U/L Alkaline Phosphatase 68 (38-126) U/L Creatine Kinase 432 H (30-135) U/L Troponin I 0.015 (0.000-0.034) ng/mL Serum Total Protein 5.8 L (6.3-8.2) g/dL Albumin 3.3 L (3.5-5.0) g/dL Urine Color (YELLOW) Urine Appearance (CLEAR) Urine pH (5-6) Ur Specific Gilberts (1.005-1.025) Urine Protein (Negative) Urine Ketones (NEGATIVE) Urine Blood (0-5) Corky/ul Urine Nitrite (NEGATIVE) Urine Bilirubin (NEGATIVE) Urine Urobilinogen (0-1) mg/dL Ur Leukocyte Esterase (NEGATIVE) Urine WBC (Auto) (0-5) /HPF Urine RBC (Auto) (0-2) /HPF U Epithel Cells (Auto) (FEW) /HPF Urine Bacteria (Auto) (NEGATIVE) /HPF Urine Culture Reflexed (NO) Urine Glucose (NEGATIVE) mg/dL SARS-CoV-2 (PCR) (NEGATIVE) - Progress Progress Note: 02/07/21 11:[address] Gillespie Counseled pt/family regarding: lab results, diagnosis, need for follow-up, rad results - Departure Departure Disposition: Observation Clinical Impression: Rhabdomyolysis, UTI (urinary tract infection), Contusion Condition: Stable Critical Care Time: No
[2021-02-07 09:34] LABS: Absolute Neutrophil Ct (ANC) 17.23 (1.4-6.9); BASOPHIL % 0.5 % (0.0-0.4); Basophil (Absolute #) 0.09 (0-0.4); Eosinophil % 0.9 % (0.00-5.0); Eosinophil (Absolute #) 0.18 (0-0.5); Hematocrit 34.4 % (35-47); Hemoglobin 10.6 gm/dl (12.0-16.0); Lymphocyte (Absolute #) 1.31 (1.0-4.6); Lymphocytes % 6.6 % (24.0-44.0); Mean Cell Volume 83.1 fl (78-100); Mean Corpuscular Hemoglobin 25.6 pg (26-32); Mean Corpuscular Hgb Concent. 30.8 g/dl (32-36); Mean Platelet Volume 10.9 fl (7.5-11.0); Monocyte (Absolute #) 1.15 (0.0-1.3); Monocytes % 5.8 % (0.0-12.0); Neutrophil % 86.2 % (36.0-66.0); Red Blood Count 4.14 M/mm3 (4.1-5.4); Red Cell Distribution Width 17.1 % (11.5-14.0)
--- NOTE | 2021-02-07 09:53 | XRAY ---
Indication: Diffuse pain following fall one day earlier. Multiple contiguous axial images obtained through the head without contrast. Comparison: None Age-appropriate global atrophy and mild periventricular degenerative micro-ischemia bilaterally. No acute intracranial hemorrhage, abnormal extra-axial fluid collection, or mass effect. Fourth ventricle is midline. Bony calvarium intact. Visualized paranasal sinuses and mastoid air cells are clear. Impression: Nonacute senile brain.
--- NOTE | 2021-02-07 09:54 | XRAY ---
Indication: Diffuse pain following fall one day earlier. Multiple contiguous axial images obtained through the chest without contrast. Comparison: June 26, 2020. New moderate right effusion with minimal right lower lobe compressive atelectasis. Stable minimal lingula fibrosis/scarring. No suspicious pulmonary mass, nodule, or pneumothorax. Heart remains enlarged again demonstrating CABG surgery. Stable tiny left hilar calcified nodes. No pathologic mediastinal lymphadenopathy. Stable small distal esophageal diverticulum. Bony thorax intact again with osteopenia, flowing osteophytes are the spine, sternotomy wires, and benign left glenoid process bone island. CT abdomen reported separately. Impression: 1. Again cardiomegaly with new right effusion. Rule out cardiac decompensation/CHF. 2. Stable small distal esophageal diverticulum, chronic bony findings, and old granulomatous disease. 3. Remaining CT chest without contrast exam is negative.
[2021-02-07 09:57] LABS: ALBUMIN 3.3 g/dL (3.5-5.0); ANION GAP 15.1 MEQ/L (5-15); BILIRUBIN,TOTAL 0.5 mg/dL (0.2-1.3); Calcium 8.8 mg/dL (8.4-10.2); Creatinine 1 2.96 mg/dL (0.52-1.04); EST GLOMERULAR FILTRATION RATE 16.2 ML/MIN; Potassium 3.1 mmol/L (3.5-5.1); TROPONIN 0.015 ng/mL (0.000-0.034); Total Protein 5.8 g/dL (6.3-8.2)
--- NOTE | 2021-02-07 09:57 | XRAY ---
Indication: Pain following fall. Comparison: None 3 view left shoulder demonstrates osteopenia and mild AC degenerative arthropathy. No other bony, articular, or soft tissue abnormalities.
--- NOTE | 2021-02-07 09:57 | XRAY ---
Indication: Pain following fall. Comparison: None 3 view left elbow demonstrates osteopenia, tiny medial/lateral epicondyle spurring, and mild posterior soft tissue swelling. No other bony, articular, or soft tissue abnormalities.
--- NOTE | 2021-02-07 10:03 | XRAY ---
Indication: Diffuse pain following fall one day earlier. Multiple contiguous axial images obtained through the abdomen and pelvis without contrast. Comparison: July 21, 2018. CT chest reported separately. Noncontrasted stomach and bowel loops nonobstructed. Urinary bladder is normally distended with new intraluminal air either iatrogenic from recent catheterization versus gas-forming bacterial infection. Previous mesenteric lymphadenopathy has diminished with residual 1.3 x 2.6 cm adenopathy interposed between the IVC and pancreas. No pathologic retroperitoneal lymphadenopathy. Again mildly atrophic left kidney, cholecystectomy, and hysterectomy. No free fluid/air. Remaining liver, pancreas, spleen, adrenal glands, kidneys, and ureters are unremarkable for noncontrast exam. There remains moderate scattered vascular calcifications including left main renal artery. No AAA. Osseous structures intact again with osteopenia, moderate degenerative changes throughout the thoracolumbar spine, and small right innominate bone island. Stable incidental multiple bilateral gluteal calcified injection granulomas. Impression: 1. New urinary bladder intraluminal air either iatrogenic versus gas-forming bacterial infection. 2. Improved mesenteric lymphadenopathy with small residual interposed between the IVC and pancreas. 3. Again incidental left renal atrophy, extensive arteriosclerotic disease, and chronic bony findings.
[2021-02-07 10:04] LABS: INR 1.18 (0.8-3.0); PROTIME 13.9 SECONDS (9.4-12.5)
[2021-02-07 10:06] LABS: PTT 33.2 SECONDS (25.1-36.5); Platelet Count 547 K/mm3 (150-450)
[2021-02-07] MEDS ORDERED: SUBLIMAZE 100 MCG/2 ML IV ONE (10:53)
[2021-02-07] MEDS ORDERED: Zofran 4 MG/2 ML VIAL IV ONE (10:53)
[2021-02-07 11:25] LABS: Appearance CLOUDY (CLEAR); Bacteria MANY /HPF (NEGATIVE); Bilirubin NEGATIVE (NEGATIVE); Blood MODERATE Ery/ul (0-5); Glucose 150 mg/dL (NEGATIVE); Ketones NEGATIVE (NEGATIVE); Leukocyte Esterase NEGATIVE (NEGATIVE); Nitrite NEGATIVE (NEGATIVE); Protein,Urine Dip >=500 (Negative); RBC 0-2 /HPF (0-2); Urobilinogen NEGATIVE mg/dL (0-1); WBC 51-100 /HPF (0-5)
[2021-02-07] MEDS ORDERED: Zofran 4 MG/2 ML VIAL IV PRN (12:01)
[2021-02-07] MEDS ORDERED: NORCO 5/325 MG PO PRN (12:06)
[2021-02-07] MEDS ORDERED: Sodium Chloride 0.9% 1000 ML 1,000 ML IV SCH (12:15)
[2021-02-07] MEDS ORDERED: PROTONIX 40 MG IV IV SCH (15:00)
[2021-02-07] MEDS: Protonix 40MG Tablet PO SCH (17:01)
[2021-02-07] MEDS: PLAVIX 75 MG Tablet PO SCH (17:01)
[2021-02-07] MEDS: NORVASC 5 MG PO SCH (17:01)
[2021-02-07] MEDS: SYNTHROID 75 MCG PO SCH (17:01)
[2021-02-07] MEDS: Bystolic 5 MG PO SCH (17:01)
[2021-02-07] MEDS: VITAMIN D PO SCH (17:01)
[2021-02-07] MEDS: Klor Con 10 MEQ PO SCH (21:25)
[2021-02-07] MEDS: clonazePAM PO PRN (21:26)
[2021-02-07] MEDS ORDERED: BACTRIM DS TABLET PO SCH (22:00)
[2021-02-07] MEDS ORDERED: NON-FORMULARY ITEM (Potassium Chloride [Klor-Con M20] 20 MEQ Tab.Er.Prt) PO SCH (22:00)
[2021-02-08 06:38] LABS: Hematocrit 32.1 % (35-47); Hemoglobin 9.7 gm/dl (12.0-16.0); Mean Cell Volume 84.3 fl (78-100); Mean Corpuscular Hemoglobin 25.5 pg (26-32); Mean Corpuscular Hgb Concent. 30.2 g/dl (32-36); Mean Platelet Volume 11.2 fl (7.5-11.0); Platelet Count 461 K/mm3 (150-450); Red Blood Count 3.81 M/mm3 (4.1-5.4); Red Cell Distribution Width 17.6 % (11.5-14.0); White Blood Count 15.2 K/mm3 (4.0-10.5)
[2021-02-08 07:02] LABS: ALBUMIN 2.7 g/dL (3.5-5.0); ANION GAP 12.2 MEQ/L (5-15); BILIRUBIN,TOTAL 0.5 mg/dL (0.2-1.3); Calcium 8.3 mg/dL (8.4-10.2); Creatinine 1 2.8 mg/dL (0.52-1.04); EST GLOMERULAR FILTRATION RATE 17.3 ML/MIN; Potassium 3.7 mmol/L (3.5-5.1)
[2021-02-08 07:16] LABS: ANISOCYTOSIS 1+; BAND 2 % (0.0-2.0); Eosinophil 2 % (0.00-3.0); Hypochromia 1+; Lymphocytes 14 % (24-44); Monocyte 5 % (0.0-12.0); Neutrophils 77 % (36.0-66.0); Platelet Estimate NORMAL (NORMAL); Total Cells Counted 100
[2021-02-08] MEDS: Bystolic 5 MG PO SCH (09:03)
[2021-02-08] MEDS: Klor Con 10 MEQ PO SCH ×2 (09:03→20:56)
[2021-02-08] MEDS: SYNTHROID 75 MCG PO SCH (09:04)
[2021-02-08] MEDS: PLAVIX 75 MG Tablet PO SCH (09:04)
[2021-02-08] MEDS: Protonix 40MG Tablet PO SCH (09:04)
[2021-02-08] MEDS: NORVASC 5 MG PO SCH (09:05)
[2021-02-08] MEDS: VITAMIN D PO SCH (09:05)
[2021-02-08] MEDS ORDERED: NON-FORMULARY ITEM (Nebivolol Hcl [Bystolic] 10 MG Tablet) PO SCH (10:00)
[2021-02-08] MEDS ORDERED: NON-FORMULARY ITEM (Omeprazole [Omeprazole] 20 MG Tablet.Dr) PO SCH (10:00)
[2021-02-08] MEDS ORDERED: NON-FORMULARY ITEM (Cholecalciferol (Vitamin D3) [Vitamin D3] 2,000 UNIT Capsule) PO SCH (10:00)
[2021-02-08] MEDS: BACTRIM DS TABLET PO SCH ×2 (11:04→20:56)
[2021-02-08] MEDS: clonazePAM PO PRN (20:56)
[2021-02-09 06:31] LABS: Hematocrit 29.9 % (35-47); Hemoglobin 9.2 gm/dl (12.0-16.0); Mean Cell Volume 83.5 fl (78-100); Mean Corpuscular Hemoglobin 25.7 pg (26-32); Mean Corpuscular Hgb Concent. 30.8 g/dl (32-36); Mean Platelet Volume 11.7 fl (7.5-11.0); Platelet Count 475 K/mm3 (150-450); Red Blood Count 3.58 M/mm3 (4.1-5.4); Red Cell Distribution Width 17.7 % (11.5-14.0); White Blood Count 14.2 K/mm3 (4.0-10.5)
[2021-02-09 06:47] LABS: ALBUMIN 2.6 g/dL (3.5-5.0); BILIRUBIN,TOTAL 0.3 mg/dL (0.2-1.3); Calcium 7.9 mg/dL (8.4-10.2); Creatinine 1 3.01 mg/dL (0.52-1.04); EST GLOMERULAR FILTRATION RATE 15.9 ML/MIN; Potassium 4.8 mmol/L (3.5-5.1); Total Protein 4.8 g/dL (6.3-8.2)
[2021-02-09 08:19] LABS: Eosinophil 2 % (0.00-3.0); Lymphocytes 23 % (24-44); Monocyte 4 % (0.0-12.0); Neutrophils 71 % (36.0-66.0); Total Cells Counted 100
[2021-02-09 08:20] LABS: ANISOCYTOSIS 1+; Platelet Estimate NORMAL (NORMAL); Poikilocytosis 1+
[2021-02-09] MEDS: Bystolic 5 MG PO SCH (09:26)
[2021-02-09] MEDS: PLAVIX 75 MG Tablet PO SCH (09:26)
[2021-02-09] MEDS: SYNTHROID 75 MCG PO SCH (09:26)
[2021-02-09] MEDS: NORVASC 5 MG PO SCH (09:26)
[2021-02-09] MEDS: VITAMIN D PO SCH (09:26)
[2021-02-09] MEDS: KEFLEX 500 MG PO SCH ×4 (09:26→21:00)
[2021-02-09] MEDS: Klor Con 10 MEQ PO SCH ×3 (09:27→21:00)
[2021-02-09] MEDS: Protonix 40MG Tablet PO SCH (09:27)
[2021-02-09] MEDS: clonazePAM PO PRN (21:00)
[2021-02-10 06:09] LABS: Hematocrit 29.7 % (35-47); Mean Cell Volume 83.2 fl (78-100); Mean Corpuscular Hemoglobin 25.2 pg (26-32); Mean Corpuscular Hgb Concent. 30.3 g/dl (32-36); Mean Platelet Volume 11.2 fl (7.5-11.0); Platelet Count 457 K/mm3 (150-450); Red Blood Count 3.57 M/mm3 (4.1-5.4); Red Cell Distribution Width 17.7 % (11.5-14.0); White Blood Count 12.9 K/mm3 (4.0-10.5)
[2021-02-10 06:30] LABS: ALBUMIN 2.6 g/dL (3.5-5.0); ANION GAP 13.8 MEQ/L (5-15); BILIRUBIN,TOTAL 0.3 mg/dL (0.2-1.3); Calcium 8.1 mg/dL (8.4-10.2); Creatinine 1 3.39 mg/dL (0.52-1.04); EST GLOMERULAR FILTRATION RATE 13.9 ML/MIN; Potassium 5.8 mmol/L (3.5-5.1)
[2021-02-10] MEDS: Sodium Chloride 0.9% 1000 ML 1,000 ML IV SCH (07:40)
[2021-02-10] MEDS: KEFLEX 500 MG PO SCH ×4 (09:29→21:12)
[2021-02-10] MEDS: SYNTHROID 75 MCG PO SCH (09:29)
[2021-02-10] MEDS: Protonix 40MG Tablet PO SCH (09:29)
[2021-02-10] MEDS: PLAVIX 75 MG Tablet PO SCH (09:29)
[2021-02-10] MEDS: VITAMIN D PO SCH (09:30)
[2021-02-10] MEDS: NORVASC 5 MG PO SCH (09:37)
[2021-02-10] MEDS: Bystolic 5 MG PO SCH (12:48)
[2021-02-10 18:57] LABS: ANION GAP 13.4 MEQ/L (5-15); Calcium 8.1 mg/dL (8.4-10.2); Creatinine 1 3.32 mg/dL (0.52-1.04); EST GLOMERULAR FILTRATION RATE 14.2 ML/MIN; Potassium 5.4 mmol/L (3.5-5.1)
[2021-02-10] MEDS ORDERED: Sodium Chloride 0.9% 1000 ML 1,000 ML IV STA (19:19)
--- NOTE | 2021-02-10 19:23 | PCM.NOTE ---
Date and Time: 02/10/211917 Subjective Assessment: Late entry for 02/10/21 at 08:40. Pt is tolerating po. still feeling achy at times in her muscles. CO2 was 16 this morning. K+ 5.8. - Review of Systems Constitutional: No Fever Abdominal/Gastrointestinal: No Vomiting Objective Exam General Appearance: no apparent distress, alert Neurologic Exam: oriented x 3, cooperative Skin Exam: normal color, warm, dry, No rash Eye Exam: eyes nml inspection Ears, Nose, Throat Exam: moist mucous membranes Neck Exam: normal inspection Respiratory Exam: normal breath sounds, lungs clear, No crackles/rales, No rhonchi, No wheezing Cardiovascular Exam: regular rate/rhythm, normal heart sounds, No murmur Extremity Exam: swelling (trace pretibial edema bilat) OBJECTIVE DATA Vital Signs: Vital Signs - 24 hr Temp Pulse Resp BP Pulse Ox 02/10/21 16:00 97.9 F 64 18 130/58 97 02/10/21 12:00 96.9 F 75 19 127/58 97 02/10/21 08:00 97.5 F 57 L 19 134/60 98 02/10/21 03:16 97.5 F 58 L 18 130/53 95 02/09/21 23:23 97.7 F 59 L 18 134/56 96 02/09/21 19:46 97.5 F 61 18 122/52 98 Pain Assessment - Last Documented Pain Intensity 0 Intake and Output: Intake & Output 02/08/21 02/09/21 02/10/21 02/11/21 12:59 11:59 11:59 11:59 Intake Total 1140 240 Output Total 50 150 Balance 1090 90 Weight Lab Results: Lab Results-Last 24 Hours 02/10/21 02/10/21 02/10/21 Range/Units 05:40 05:40 18:00 WBC 12.9 H (4.0-10.5) K/mm3 RBC 3.57 L (4.1-5.4) M/mm3 Hgb 9.0 L (12.0-16.0) gm/dl Hct 29.7 L (35-47) % MCV 83.2 (78-100) fl MCH 25.2 L (26-32) pg MCHC 30.3 L (32-36) g/dl RDW 17.7 H (11.5-14.0) % Plt Count 457 H (150-450) K/mm3 MPV 11.2 H (7.5-11.0) fl Sodium 137 135 L (137-145) mmol/L Potassium 5.8 H D 5.4 H (3.5-5.1) mmol/L Chloride 113 H 111 H (98-107) mmol/L Carbon Dioxide 16 L* 16 L* (22-30) mmol/L Anion Gap 13.8 13.4 (5-15) MEQ/L BUN 44 H 47 H (7-17) mg/dL Creatinine 3.39 H 3.32 H (0.52-1.04) mg/dL Estimated GFR 13.9 14.2 ML/MIN Glucose 108 H 133 H (74-106) mg/dL Calcium 8.1 L 8.1 L (8.4-10.2) mg/dL Total Bilirubin 0.30 (0.2-1.3) mg/dL AST 21 (14-36) U/L ALT 12 (0-35) U/L Alkaline Phosphatase 43 (38-126) U/L Serum Total Protein 5.0 L (6.3-8.2) g/dL Albumin 2.6 L (3.5-5.0) g/dL Assessment/Plan (1) Rhabdomyolysis Current Visit: Yes Status: Acute Qualifiers: Rhabdomyolysis type: traumatic Encounter type: subsequent encounter Qualified Code(s): T79.6XXD - Traumatic ischemia of muscle, subsequent encounter Code(s): M62.82 - RHABDOMYOLYSIS (2) UTI (urinary tract infection) Current Visit: Yes Status: Acute Qualifiers: Urinary tract infection type: acute cystitis Hematuria presence: without hematuria Qualified Code(s): N30.00 - Acute cystitis without hematuria Assessment & Plan: UCx was resistant to bactrim, so pt is now on keflex. Has not been on IV fluids and has low CO2, so I started IV fluids earlier this morning; if p.m. BMP shows continued low CO2, will give 1 L bolus and recheck BMP in a.m. Code(s): N39.0 - URINARY TRACT INFECTION, SITE NOT SPECIFIED (3) Hyperkalemia Current Visit: Yes Status: Acute Code(s): E87.5 - HYPERKALEMIA (4) Acute on chronic renal failure Current Visit: Yes Status: Acute Qualifiers: Chronic kidney disease stage: stage 4 (severe) Assessment & Plan: recheck BMP in a.m. Code(s): N17.9 - ACUTE KIDNEY FAILURE, UNSPECIFIED; N18.9 - CHRONIC KIDNEY DISEASE, UNSPECIFIED
[2021-02-10] MEDS ORDERED: BENADRYL 25 MG CAPSULE PO PRN (20:42)
[2021-02-10] MEDS: clonazePAM PO PRN (21:12)
[2021-02-11] MEDS: Sodium Chloride 0.9% 1000 ML 1,000 ML IV SCH (04:50)
[2021-02-11 06:42] LABS: Hematocrit 31.7 % (35-47); Hemoglobin 9.6 gm/dl (12.0-16.0); Mean Cell Volume 84.5 fl (78-100); Mean Corpuscular Hemoglobin 25.6 pg (26-32); Mean Corpuscular Hgb Concent. 30.3 g/dl (32-36); Mean Platelet Volume 11.4 fl (7.5-11.0); Platelet Count 478 K/mm3 (150-450); Red Blood Count 3.75 M/mm3 (4.1-5.4); Red Cell Distribution Width 18.1 % (11.5-14.0)
[2021-02-11 07:51] LABS: Basophil 1 % (0.0-1.0); Eosinophil 4 % (0.00-3.0); Lymphocytes 12 % (24-44); Monocyte 1 % (0.0-12.0); Neutrophils 82 % (36.0-66.0); Total Cells Counted 100
[2021-02-11 07:52] LABS: ANISOCYTOSIS 1+; Platelet Estimate NORMAL (NORMAL); Poikilocytosis 1+
[2021-02-11] MEDS: KEFLEX 500 MG PO SCH ×3 (08:02→16:32)
[2021-02-11] MEDS: PLAVIX 75 MG Tablet PO SCH (08:02)
[2021-02-11] MEDS: Protonix 40MG Tablet PO SCH (08:02)
[2021-02-11] MEDS: VITAMIN D PO SCH (08:02)
[2021-02-11] MEDS: SYNTHROID 75 MCG PO SCH (08:02)
[2021-02-11] MEDS: NORVASC 5 MG PO SCH (08:02)
[2021-02-11 08:25] LABS: ANION GAP 14.4 MEQ/L (5-15); Calcium 8.2 mg/dL (8.4-10.2); Creatinine 1 3.51 mg/dL (0.52-1.04); EST GLOMERULAR FILTRATION RATE 13.3 ML/MIN; Potassium 5.4 mmol/L (3.5-5.1)
[2021-02-11] MEDS ORDERED: Lasix 40 MG/4 ML IV ONE (09:00)
[2021-02-11] MEDS: Acidophilus TABLET PO SCH ×2 (09:37→15:18)
[2021-02-11] MEDS: Bystolic 5 MG PO SCH (10:09)
[2021-02-11] MEDS ORDERED: HUMULIN R 100 UNIT in Sodium Chloride 0.9% 100 ML BAG 100 ML IV PRN (12:07)
[2021-02-11] MEDS ORDERED: Lasix 20 MG/2 ML IV ONE (14:00)
[2021-02-24 16:01] VITALS: BP 129/55; PULSE 66; O2SAT 95
--- NOTE | 2021-03-03 12:22 | PCM.SSS ---
History of Present Illness - Chief Complaint Chief Complaint: RHABDOMYOLYSIS, FALL AT HOME, UTI Date: 02/11/21 History of Present Illness: is a 80 year old female. Pt. fell in bathroom and unable to get up, she was only able to crawl to next room to ring 911. Pt. brought to ER and found to have a UTI and mutliple contusions and areas of soreness, pt. had no LOC from fall, and placed in observation as she was in too much pain to be able to care for herself. - Review of Systems Constitutional: No Fever, No Chills Eyes: No Symptoms Ears, Nose, & Throat: No Symptoms Respiratory: No Cough, No Short Of Breath Cardiac: No Chest Pain, No Edema, No Syncope Abdominal/Gastrointestinal: No Abdominal Pain, No Nausea, No Vomiting, No Diarrhea Genitourinary Symptoms: No Dysuria Musculoskeletal: Back Pain, Fall, Injury, Joint Pain, No Neck Pain Skin: No Rash Neurological: No Dizziness, No Focal Weakness, No Sensory Changes Psychological: No Symptoms Endocrine: No Symptoms Hematologic/Lymphatic: No Symptoms Immunological/Allergic: No Symptoms Medications & Allergies Home Medications: Home Medication List Amlodipine Besylate 5 mg [Norvasc 5 mg] 5 mg PO DAILY 03/22/18 [History Confirmed 02/07/21] Cholecalciferol (Vitamin D3) [Vitamin D3] 2,000 unit PO DAILY 03/22/18 [History Confirmed 02/07/21] Clonazepam 0.5 mg [Klonopin 0.5 MG] 0.5 mg PO BID PRN 03/22/18 [History Confirmed 02/07/21] Ibandronate Sodium [Boniva] 150 mg PO UD 03/22/18 [History Confirmed 02/07/21] Omeprazole 20 mg PO DAILY 03/22/18 [History Confirmed 02/07/21] Potassium Chloride [Klor-Con M20] 20 meq PO BID 03/22/18 [History Confirmed 02/07/21] Nebivolol HCl [Bystolic] 10 mg PO DAILY 03/10/19 [History Confirmed 02/07/21] Clopidogrel Bisulfate 75 mg [PLAVIX 75 MG Tablet] 75 mg PO DAILY 02/07/21 [History Confirmed 02/07/21] Levothyroxine Sodium [Euthyrox] 75 mcg PO DAILY 02/07/21 [History Confirmed 02/07/21] Allergies/Adverse Reactions: Allergies Allergy/AdvReac Type Severity Reaction Status Date / Time amoxicillin [From Augmentin] Allergy Unknown Verified 02/07/21 09:01 aspirin Allergy Unknown Verified 02/07/21 09:01 bacitracin Allergy Unknown Verified 02/07/21 09:01 [From Neosporin ([id number])] betamethasone Allergy Unknown Verified 02/07/21 09:01 [From Lotrisone] cefpodoxime [From Vantin] Allergy Unknown Verified 02/07/21 09:01 cetirizine [From Zyrtec] Allergy Unknown Verified 02/07/21 09:01 ciprofloxacin [From Cipro] Allergy Unknown Verified 02/07/21 09:01 clavulanic acid Allergy Unknown Verified 02/07/21 09:01 [From Augmentin] clotrimazole [From Lotrisone] Allergy Unknown Verified 02/07/21 09:01 codeine Allergy Unknown Verified 02/07/21 09:01 enalaprilat [From Vasotec] Allergy Unknown Verified 02/07/21 09:01 fluconazole [From Diflucan] Allergy Unknown Verified 02/07/21 09:01 gabapentin [From Neurontin] Allergy Unknown Verified 02/07/21 09:01 halobetasol [From Ultravate] Allergy Unknown Verified 02/07/21 09:01 itraconazole [From Sporanox] Allergy Unknown Verified 02/07/21 09:01 ketoconazole [From Nizoral] Allergy Unknown Verified 02/07/21 09:01 lansoprazole [From Prevacid] Allergy Unknown Verified 02/07/21 09:01 levofloxacin [From Levaquin] Allergy Unknown Verified 02/07/21 09:01 metformin Allergy Unknown Verified 02/07/21 09:01 mirtazapine [From Remeron] Allergy Unknown Verified 02/07/21 09:01 moxifloxacin [From Avelox] Allergy Unknown Verified 02/07/21 09:01 naproxen [From Naprelan] Allergy Unknown Verified 02/07/21 09:01 neomycin Allergy Unknown Verified 02/07/21 09:01 [From Neosporin ([id number])] oxycodone [From Percodan] Allergy Unknown Verified 02/07/21 09:01 polymyxin B Allergy Unknown Verified 02/07/21 09:01 [From Neosporin ([id number])] prednisone Allergy Unknown Verified 02/07/21 09:01 pregabalin [From Lyrica] Allergy Unknown Verified 02/07/21 09:01 promethazine [From Phenergan] Allergy Unknown Verified 02/07/21 09:01 sulindac [From Clinoril] Allergy Unknown Verified 02/07/21 09:01 venlafaxine [From Effexor] Allergy Unknown Verified 02/07/21 09:01 cephalexin [From Keflex] AdvReac Unknown Nausea Verified 02/09/21 08:56 - Past Medical History Past Medical History: Yes Neurological History: No Pertinent History ENT History: No Pertinent History Cardiac History: Hypertension Respiratory History: No Pertinent History Endocrine Medical History: Diabetes Type II Musculoskelatal History: No Pertinent History GI Medical History: Hemorrhoids History: Renal Disease Pyscho-Social History: No Pertinent History Reproductive Disorders: No Pertinent History - Female History Hx Last Menstrual Period: post Are you now?: No - Past Surgical History Past Surgical History: Yes Neuro Surgical History: No Pertinent History Cardiac History: Cardiac Stent Respiratory Surgery: No Pertinent History GI Surgical History: Cholecystectomy, Hemorrhoidectomy Genitourinary Surgical Hx: No Pertinent History Musculskeletal Surgical Hx: Other Female Surgical History: Hysterectomy Other Surgical History: breast reduction, breast repair, lumps removed both breasts, feet surgery-"nerve damage fixed", right wrist " nerve surgery unknow" Biopsy of thyroid - Social History Smoking Status: Never smoker Exposure to second hand smoke: No Alcohol: None Drug Use: none Significant Family History: no pertinent family hx - Physical Exam General Appearance: no apparent distress, alert Neurologic Exam: alert, oriented x 3, cooperative, normal mood/affect, nml cerebellar function, sensation nml, other (antalgic gait but noted to be able to care and get up and around of her own ability.), No motor deficits Eye Exam: PERRL/EOMI, eyes nml inspection Ears, Nose, Throat Exam: normal ENT inspection, pharynx normal, moist mucous membranes Neck Exam: normal inspection, non-tender, supple, full range of motion Respiratory Exam: normal breath sounds, lungs clear, No respiratory distress Cardiovascular Exam: regular rate/rhythm, normal heart sounds, normal peripheral pulses Gastrointestinal/Abdomen Exam: soft, normal bowel sounds, No tenderness, No mass Rectal Exam: deferred Back Exam: normal inspection, other (diffuse back tenderness), No CVA tenderness, No vertebral tenderness Extremity Exam: normal inspection, normal range of motion, pelvis stable Skin Exam: normal color, warm, dry, No rash Lymphatic Exam: No adenopathy Results - Labs Lab/Micro Results: Microbiology 02/07/21 11:17 Urine Culture - Final Urine, Catheterized Escherichia Coli Assessment/Plan (1) Fall Status: Acute Code(s): W19.XXXA - UNSPECIFIED FALL, INITIAL ENCOUNTER (2) Hypokalemia Status: Acute Code(s): E87.6 - HYPOKALEMIA (3) Contusion Status: Acute Code(s): T14.8XXA - OTHER INJURY OF UNSPECIFIED BODY REGION, INITIAL ENCOUNTER (4) Rhabdomyolysis Status: Acute Qualifiers: Rhabdomyolysis type: traumatic Encounter type: subsequent encounter Qualified Code(s): T79.6XXD - Traumatic ischemia of muscle, subsequent encounter Code(s): M62.82 - RHABDOMYOLYSIS (5) UTI (urinary tract infection) Status: Acute Qualifiers: Urinary tract infection type: acute cystitis Hematuria presence: without hematuria Qualified Code(s): N30.00 - Acute cystitis without hematuria Code(s): N39.0 - URINARY TRACT INFECTION, SITE NOT SPECIFIED Hospital Summary - Hospital Course Hospital Course: Pt. admitted and gently hydrated to avoid kidney failure from elevated CK. Pt. was also treated for her UTI with appropirate medications, potassium replenished. Pain control did not improve and pt. was not responding to t reatment and felt she needed to be more closely monitered with consultation with nephrology. Pt. was transferred to [facility] for further treatment. - Vitals & Intake/Output Vital Signs: Vital Signs Temperature 97.2 F 02/11/21 16:00 Pulse Rate 66 02/11/21 16:00 Respiratory Rate 19 02/11/21 16:00 Blood Pressure 129/55 02/11/21 16:00 O2 Sat by Pulse Oximetry 95 02/11/21 16:00 - Lab Result Diagrams: 02/11/21 06:07 02/11/21 06:07 Micro Results-Entire Visit: Microbiology 02/07/21 11:17 Urine Culture - Final Urine, Catheterized Escherichia Coli - Procedures and Test Procedures and Tests throughout Hospitalization: Therapy Orders & Screens 02/07/21 15:29 OT Screen per Nursing Assess ONCE Comment: Protocol Order Physician Instructions: Greater than 3 points order OT Admission Screening Reason For Exam: Triggered on Admission Diagnosis: Rhabdomylosis/UTI/Multiple contusion Open Wound/Cellutlitis/Pressure Ulcers: No Acute Fx/ORIF/Change in wt bearing status: No Severe MUSCULOSKELETAL pain: No ADL Dysfunction: Yes Acute CVA w/Hemiparesis/Hemiplegia: No Decreased Functional Mobility/Strength: Yes Sprain/Strain: No Acute Post-op Mobility Dysfunction: No Total Points: 4 PT Screen per Nursing Assess ONCE Comment: Protocol Order Physician Instructions: Greater than 3 points order PT Admission Screenin Reason For Exam: Triggered on Admission Diagnosis: Rhabdomylosis/UTI/Multiple contusion Open Wound/Cellutlitis/Pressure Ulcers: No Acute Fx/ORIF/Change in wt bearing status: No Severe MUSCULOSKELETAL pain: No ADL Dysfunction: Yes Acute CVA w/Hemiparesis/Hemiplegia: No Decreased Functional Mobility/Strength: Yes Sprain/Strain: No Acute Post-op Mobility Dysfunction: No Total Points: 4 - Discharge Discharge Date: 02/11/21 [facility]position: [facility] Condition: Stable Prescriptions: No Action Omeprazole 20 mg PO DAILY Potassium Chloride [Klor-Con M20] 20 meq PO BID Ibandronate Sodium [Boniva] 150 mg PO UD Clonazepam 0.5 mg [Klonopin 0.5 MG] 0.5 mg PO BID PRN PRN Reason: Anxiety Cholecalciferol (Vitamin D3) [Vitamin D3] 2,000 unit PO DAILY Amlodipine Besylate 5 mg [Norvasc 5 mg] 5 mg PO DAILY Nebivolol HCl [Bystolic] 10 mg PO DAILY Levothyroxine Sodium [Euthyrox] 75 mcg PO DAILY Clopidogrel Bisulfate 75 mg [PLAVIX 75 MG Tablet] 75 mg PO DAILY Follow up with: SHEKHAR HAMM [CONSULTING PHYSICIAN] - SHIRLEY MILLER [Primary Care Provider] -
== END 2021-02-11 18:55 | disposition short-term general hospital (02) | DRG 641 ==
LOC: ED 08:43 → MED SURG 14:30 → OBSVTOIN 02-09 09:20
PROVIDERS: ADMIT Family Medicine; ATTEND Family Medicine
DX: E87.6 Hypokalemia (principal); M62.82 Rhabdomyolysis; N39.0 Urinary tract infection, site not specified; N17.9 Acute kidney failure, unspecified; E87.5 Hyperkalemia; N18.9 Chronic kidney disease, unspecified; B96.20 Unspecified Escherichia coli [E. coli] as the cause of diseases classified elsewhere; M54.6 Pain in thoracic spine; W19.XXXA Unspecified fall, initial encounter; Y92.002 Bathroom of unspecified non-institutional (private) residence as the place of occurrence of the external cause; R51.9 Headache, unspecified; Z79.899 Other long term (current) drug therapy; Z79.01 Long term (current) use of anticoagulants; Z20.822 Contact with and (suspected) exposure to COVID-19; E11.22 Type 2 diabetes mellitus with diabetic chronic kidney disease; I12.9 Hypertensive chronic kidney disease with stage 1 through stage 4 chronic kidney disease, or unspecified chronic kidney disease; T14.8XXA Other injury of unspecified body region, initial encounter
CPT/HCPCS: 36415; 70450; 71250; 73030; 73080; 74176; 80048; 80053; 81001; 82550; 84484; 85025; 85027; 85610; 85730; 87077; 87086; 87186; 93005; 99285; G0378; P9612; U0003; J1940; A9270-GY

== ENCOUNTER 2021-12-10 07:22 | Emergency (ER) | payer MEDICARE ==
--- NOTE | 2021-12-10 07:25 | ERPHSYRPT ---
- History of Present Illness Time Seen by Provider: 12/10/21 07:25 Source: patient, EMS Exam Limitations: no limitations Physician History: This is an 81-year-old white female patient of Dr. Rufus Galeano who falls frequently and fell this morning hitting her left elbow. This caused a skin tear. Patient is on Plavix and she has had a slow weeping of blood from the skin tear overlying her left elbow. Patient has renal failure and is on Wednesday dialysis. She has a left upper extremity AV fistula. Patient also has a history of gastroesophageal reflux disease and hypertension. Patient did not hit her head and she has no complaints of headache or neck pain. Occurred: just prior to arrival Reason for Fall: lost balance Injuries/Pain Location: upper extremity (Left elbow) Loss of Consciousness: no loss of consciousness Quality: aching Severity of Pain-Max: mild Severity of Pain-Current: mild Modifying Factors: Improves With: movement Associated Symptoms (Fall): extremity injury (Left elbow) Allergies/Adverse Reactions: amoxicillin [From Augmentin] Allergy (Unknown, Verified 12/10/21 08:04) pt states "i don't really know why all those are on my list and i have never had a really bad reaction from anything". aspirin Allergy (Unknown, Verified 12/10/21 08:04) bacitracin [From Neosporin ([id number])] Allergy (Unknown, Verified 12/10/21 08:04) betamethasone [From Lotrisone] Allergy (Unknown, Verified 12/10/21 08:04) cefpodoxime [From Vantin] Allergy (Unknown, Verified 12/10/21 08:04) cetirizine [From Zyrtec] Allergy (Unknown, Verified 12/10/21 08:04) ciprofloxacin [From Cipro] Allergy (Unknown, Verified 12/10/21 08:04) clavulanic acid [From Augmentin] Allergy (Unknown, Verified 12/10/21 08:04) clotrimazole [From Lotrisone] Allergy (Unknown, Verified 12/10/21 08:04) codeine Allergy (Unknown, Verified 12/10/21 08:04) enalaprilat [From Vasotec] Allergy (Unknown, Verified 12/10/21 08:04) fluconazole [From Diflucan] Allergy (Unknown, Verified 12/10/21 08:04) gabapentin [From Neurontin] Allergy (Unknown, Verified 12/10/21 08:04) halobetasol [From Ultravate] Allergy (Unknown, Verified 12/10/21 08:04) itraconazole [From Sporanox] Allergy (Unknown, Verified 12/10/21 08:04) ketoconazole [From Nizoral] Allergy (Unknown, Verified 12/10/21 08:04) lansoprazole [From Prevacid] Allergy (Unknown, Verified 12/10/21 08:04) levofloxacin [From Levaquin] Allergy (Unknown, Verified 12/10/21 08:04) metformin Allergy (Unknown, Verified 12/10/21 08:04) mirtazapine [From Remeron] Allergy (Unknown, Verified 12/10/21 08:04) moxifloxacin [From Avelox] Allergy (Unknown, Verified 12/10/21 08:04) naproxen [From Naprelan] Allergy (Unknown, Verified 12/10/21 08:04) neomycin [From Neosporin ([id number])] Allergy (Unknown, Verified 12/10/21 08:04) oxycodone [From Percodan] Allergy (Unknown, Verified 12/10/21 08:04) polymyxin B [From Neosporin ([id number])] Allergy (Unknown, Verified 12/10/21 08:04) prednisone Allergy (Unknown, Verified 12/10/21 08:04) pregabalin [From Lyrica] Allergy (Unknown, Verified 12/10/21 08:04) promethazine [From Phenergan] Allergy (Unknown, Verified 12/10/21 08:04) sulindac [From Clinoril] Allergy (Unknown, Verified 12/10/21 08:04) venlafaxine [From Effexor] Allergy (Unknown, Verified 12/10/21 08:04) cephalexin [From Keflex] Adverse Reaction (Unknown, Verified 12/10/21 08:04) Nausea Home Medications: Cholecalciferol (Vitamin D3) [Vitamin D3] 2,000 unit PO DAILY 03/22/18 [History] Clonazepam 0.5 mg [Klonopin 0.5 MG] 0.5 mg PO UD PRN 03/22/18 [History] Ibandronate Sodium [Boniva] 150 mg PO UD 03/22/18 [History] Nebivolol HCl [Bystolic] 10 mg PO DAILY 03/10/19 [History] Clopidogrel Bisulfate [PLAVIX Tablet] 75 mg PO DAILY 02/07/21 [History] Levothyroxine Sodium [Euthyrox] 75 mcg PO UD 02/07/21 [History] Amlodipine Besylate 5 mg [Norvasc 5 mg] 5 mg PO DAILY 12/10/21 [History] Atorvastatin Calcium [Lipitor] 20 mg PO DAILY 12/10/21 [History] Hx Influenza Vaccination/Date Given: No Hx Pneumococcal Vaccination/Date Given: Yes Travel Risk - International Travel Have you traveled outside of the country in past 3 weeks: No - Coronavirus Screening Are you exhibiting any of the following symptoms?: No Close contact with a COVID-19 positive Pt in past 14-21 Days: No - Vaccine Status Have you recieved a Covid-19 vaccination: Yes 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 - Review of Systems Constitutional: No Symptoms Eyes: No Symptoms Ears, Nose, & Throat: No Symptoms Respiratory: No Symptoms Cardiac: No Symptoms Abdominal/Gastrointestinal: No Symptoms Genitourinary Symptoms: No Symptoms Musculoskeletal: Injury (Left elbow) Skin: Other (Skin tear of the skin overlying left elbow) Psychological: No Symptoms Endocrine: No Symptoms Hematologic/Lymphatic: No Symptoms Immunological/Allergic: No Symptoms All Other Systems: Reviewed and Negative - Past Medical History Pertinent Past Medical History: Yes Neurological History: No Pertinent History ENT History: No Pertinent History Cardiac History: Hypertension Respiratory History: No Pertinent History Endocrine Medical History: Diabetes Type II Musculoskeletal History: No Pertinent History GI Medical History: Hemorrhoids History: Renal Disease Psycho-Social History: No Pertinent History Female Reproductive Disorders: No Pertinent History - Past Surgical History Past Surgical History: Yes Neuro Surgical History: No Pertinent History Cardiac: Cardiac Stent Respiratory: No Pertinent History Gastrointestinal: Cholecystectomy, Hemorrhoidectomy Genitourinary: No Pertinent History Musculoskeletal: Other Female Surgical History: Hysterectomy Other Surgical History: breast reduction, breast repair, lumps removed both breasts, feet surgery-"nerve damage fixed", right wrist " nerve surgery unknow" Biopsy of thyroid - Social History Smoking Status: Never smoker Exposure to second hand smoke: No Drug Use: none Patient Lives Alone: Yes Significant Family History: no pertinent family hx - Nursing Vital Signs Nursing Vital Signs: Initial Vital Signs Temperature 96.6 F 12/10/21 07:23 Pulse Rate 56 L 12/10/21 07:23 Blood Pressure 144/55 12/10/21 07:23 O2 Sat by Pulse Oximetry 97 12/10/21 07:23 Pain Scale Pain Intensity 2 - Severo Coma Score Best Eye Response (Severo): (4) open spontaneously Best Verbal Response (Collins): (5) oriented Best Motor Response (Collins): (6) obeys commands Severo Total: 15 - Physical Exam General Appearance: no apparent distress, alert Head Injury: no evidence of injury Eye Exam: PERRL/EOMI, eyes nml inspection ENT Exam: airway nml, nml ext.inspection Neck Exam: supple, trachea midline, full range of motion, normal alignment Respiratory/Chest Exam: normal breath sounds, No chest tenderness, No respiratory distress, No accessory muscle use Cardiovascular Exam: normal heart sounds, regular rate/rhythm Gastrointestinal Exam: soft, normal bowel sounds, No tenderness Rectal Exam: not done Back Exam: normal inspection, normal range of motion, No CVA tenderness, No vertebral tenderness Extremity Exam: normal range of motion, capillary refill <3 sec, tenderness (At the skin tear site overlying left elbow. There is mild weeping of blood from the skin tear site. The skin tear measures approximately 6 cm in length) Neurologic Exam: alert, oriented x 3, cooperative, engagement specialist II-XII nml as tested, normal mood/affect, nml cerebellar function, nml station & gait, sensation nml Skin Exam: other (Skin tear overlying the left elbow measuring approximately 6 cm. Is actually oriented.) SpO2 Interpretation: normal O2 Delivery: Room Air Procedures - Additional Procedures Progress: Timeout performed at 0900 a.m. Evaluation of the left elbow skin tear site shows a skin edge bleed in the midportion of the skin tear that is oozing. Patient is on Plavix. This area was anesthetized with 1 cc of 1% lidocaine with epinephrine. This slowed the oozing down but we did use a silver nitrate stick to the site. In addition, we placed a single proximal skin staple to another area of oozing from the skin edge. There is thicker tissue in this area. This stopped the bleeding. The area was then cleaned dried and Surgicel gauze was placed directly on the skin tear site followed by nonstick gauze, 4 x 4 gauze, Kerlix and Coban wrap. Patient had a strong thrill proximal to the pressure dressing. Patient fingers were not discolored. Hemostasis was obtained. - Course Nursing assessment & vital signs reviewed: Yes Ordered Tests: Active Orders 24 hr Category Date Time Status ELBOW (MINIMUM 3 VIEWS) Stat Exams 12/10/21 07:43 Completed SACRUM AND COCCYX Stat Exams 12/10/21 Completed Medication Summary Discontinued Medications Generic Name Dose Route Start Last Admin Trade Name Terenceq PRN Reason Stop Dose Admin Lidocaine/Epinephrine Confirm 12/10/21 08:51 Lidocaine Hcl/Epinephrine 1% 20 Ml Administered 12/10/21 08:52 Dose 1 ml .ROUTE .STK-MED ONE Lidocaine/Epinephrine 3 ml 12/10/21 09:08 12/10/21 09:11 Lidocaine Hcl/Epinephrine 1% 20 Ml IJ 12/10/21 09:09 3 ml STAT ONE Administration Morphine Sulfate 2 mg 12/10/21 08:37 12/10/21 09:10 Morphine Sulfate 2 Mg/Ml Inj IM 12/10/21 08:38 2 mg STAT ONE Administration Morphine Sulfate Confirm 12/10/21 09:06 Morphine Sulfate 2 Mg/Ml Inj Administered 12/10/21 09:07 Dose 2 mg .ROUTE .STK-MED ONE Ondansetron HCl 4 mg 12/10/21 08:38 12/10/21 09:11 Zofran 4 Mg/Udtablet Orally Disintegrating PO 12/10/21 08:39 4 mg STAT ONE Administration Ondansetron HCl Confirm 12/10/21 09:06 Ondansetron Hcl 4 Mg/2 Ml Vial Administered 12/10/21 09:07 Dose 4 mg .ROUTE .STK-MED ONE Ondansetron HCl Confirm 12/10/21 09:07 Zofran 4 Mg/Udtablet Orally Disintegrating Administered 12/10/21 09:08 Dose 4 mg .ROUTE .STK-MED ONE Silver Nitrate Confirm 12/10/21 08:55 Silver Nitrate 1 Pkt Each Administered 12/10/21 08:56 Dose 1 pkt TP .STK-MED ONE Silver Nitrate 1 pkt 12/10/21 09:08 12/10/21 09:11 Silver Nitrate 1 Pkt Each TP 12/10/21 09:09 1 pkt 1XONLY STA Administration - Progress Progress: improved, pain not gone completely Progress Note: 12/10/21 09:17 X-ray of left elbow shows no acute fracture or dislocation. X-ray of sacrum and coccyx shows no acute fracture or dislocation. Medical decision making: This patient and her daughter stated that she thinks she has had [place] in the past without any problems. I think she can benefit from 4 tablets to be taken twice a day for 2 days. We will also have her stop her Plavix for 2 days. Counseled pt/family regarding: diagnosis, need for follow-up, rad results - Departure Departure Disposition: Home Clinical Impression: Fall with injury, Skin tear of left elbow without complication Condition: Stable Critical Care Time: No Referrals: SHIRLEY MILLER [Primary Care Provider] - Follow up/PCP as directed Additional Instructions: Ice pack to tender areas twice a day for the next 2 days. Stop your Plavix and restart the morning of 12/13/2021. Remove the dressing on the morning of 12/12/2021. May want rinsed the area off with warm soapy water. Blot dry use a hairdryer and then reapply a nonstick bandage. To area. Staple removal in 8 to 10 days. Prescriptions: Hydrocodone/APAP 5/325 [[place] 5/325 mg] 1 each PO Q12H PRN PRN #4 tablet MDD 2 PRN Reason: Pain
[2021-12-10 08:04] VITALS: BP 144/55
[2021-12-10] MEDS ORDERED: MORPHINE SULFATE 2 MG INJ IM ONE (08:37)
[2021-12-10] MEDS ORDERED: XYLOCAINE 1%/Epi 1:100000 MDV 20 ML ONE (08:51)
[2021-12-10] MEDS ORDERED: ARZOL Silver Nitrate Applicator TP ONE (08:55)
[2021-12-10 08:58] VITALS: PULSE 60; O2SAT 96
[2021-12-10] MEDS ORDERED: MORPHINE SULFATE 2 MG INJ ONE (09:06)
[2021-12-10] MEDS ORDERED: Zofran 4 MG/2 ML VIAL ONE (09:06)
[2021-12-10] MEDS ORDERED: ZOFRAN ODT 4 MG ONE (09:07)
[2021-12-10] MEDS ORDERED: ARZOL Silver Nitrate Applicator TP STA (09:08)
[2021-12-10] MEDS ORDERED: XYLOCAINE 1%/Epi 1:100000 MDV 20 ML IJ ONE (09:08)
[2021-12-10] MEDS: ZOFRAN ODT 4 MG PO ONE ×2 (09:11→09:15)
--- NOTE | 2021-12-10 09:11 | XRAY ---
Indication: Low back pain following fall. Comparison: None 3 view sacrum/coccyx demonstrate osteopenia, mild degenerative changes visualized lumbar spine, gluteal calcified granulomas, extensive vascular calcifications, and left inguinal surgical clips. No other bony, articular, or soft tissue abnormalities.
--- NOTE | 2021-12-10 09:11 | XRAY ---
Indication: Pain following fall. Comparison: None 3 view left elbow demonstrates osteopenia, anterior surgical clips, faint scattered vascular calcifications, and posterior bandage material. No other bony, articular, or soft tissue abnormalities.
== END 2021-12-10 10:13 | disposition home or self-care (01) ==
LOC: ED 07:22
DX: S51.012A Laceration without foreign body of left elbow, initial encounter (principal); W18.30XA Fall on same level, unspecified, initial encounter; Z91.81 History of falling; I12.0 Hypertensive chronic kidney disease with stage 5 chronic kidney disease or end stage renal disease; E11.22 Type 2 diabetes mellitus with diabetic chronic kidney disease; N18.9 Chronic kidney disease, unspecified; Z99.2 Dependence on renal dialysis; Z79.02 Long term (current) use of antithrombotics/antiplatelets; Z79.899 Other long term (current) drug therapy; Z79.891 Long term (current) use of opiate analgesic
CPT/HCPCS: 12001; 72220; 73080; 96372; 99283; J2270; J2405; Q0162; A9270-GY

== ENCOUNTER 2021-12-15 04:17 | Emergency (ER) | payer MEDICARE ==
[2021-12-15] MEDS ORDERED: MORPHINE SULFATE 4 MG INJ IV ONE (05:07)
[2021-12-15] MEDS ORDERED: Zofran 4 MG/2 ML VIAL IV ONE (05:07)
[2021-12-15] MEDS ORDERED: Zofran 4 MG/2 ML VIAL ONE (05:19)
[2021-12-15] MEDS ORDERED: MORPHINE SULFATE 4 MG INJ ONE (05:20)
--- NOTE | 2021-12-15 06:51 | ERPHSYRPT ---
- History of Present Illness Source: patient, EMS Exam Limitations: no limitations Patient Subjective Stated Complaint: pt arrived via ambulance stating she is hurting all over following her fall thatshelly had last wednesday, she was seen here in ER and had a large skin tear on her elbow that was fixed with reilly. Triage Nursing Assessment: pt is alert and oriented, states pain is 10/10 in legs, hips and back and left elbow where there were astaples applied.The reilly appear to be misplaced and the would is pulled apart, but not bleeding at this time Occurred: days ago (5) Injuries/Pain Location: upper extremity, back, lower extremity Loss of Consciousness: no loss of consciousness Quality: sharpness Severity of Pain-Max: severe Severity of Pain-Current: moderate Modifying Factors: Improves With: immobilization. Worsens With: movement Associated Symptoms (Fall): back pain, extremity injury, muscle spasms, trouble walking Hx Influenza Vaccination/Date Given: No Hx Pneumococcal Vaccination/Date Given: Yes <NIKHIL SANTANA - Last Filed: 12/15/21 06:46> <ADRYAN GARCIA - Last Filed: 12/15/21 09:09> - History of Present Illness Time Seen by Provider: 12/15/21 05:07 Physician History: 81-year-old female who took a fall almost 5 days ago, was evaluated in the ER with laceration repair left elbow presented again via EMS with increasing pain in the elbow and right hip since last visit in ER. Patient reports she did not take another fall. Moderate to severe sharp pain more in the right hip with movements and difficult ambulation. She is also complaining of low back pain without numbness tingling or weakness of lower extremities. Abdominal pain nausea or vomiting. (NIKHIL SANTANA) Allergies/Adverse Reactions: amoxicillin [From Augmentin] Allergy (Unknown, Verified 12/15/21 04:31) pt states "i don't really know why all those are on my list and i have never had a really bad reaction from anything". aspirin Allergy (Unknown, Verified 12/15/21 04:31) bacitracin [From Neosporin ([id number])] Allergy (Unknown, Verified 12/15/21 04:31) betamethasone [From Lotrisone] Allergy (Unknown, Verified 12/15/21 04:31) cefpodoxime [From Vantin] Allergy (Unknown, Verified 12/15/21 04:31) cetirizine [From Zyrtec] Allergy (Unknown, Verified 12/15/21 04:31) ciprofloxacin [From Cipro] Allergy (Unknown, Verified 12/15/21 04:31) clavulanic acid [From Augmentin] Allergy (Unknown, Verified 12/15/21 04:31) clotrimazole [From Lotrisone] Allergy (Unknown, Verified 12/15/21 04:31) codeine Allergy (Unknown, Verified 12/15/21 04:31) enalaprilat [From Vasotec] Allergy (Unknown, Verified 12/15/21 04:31) fluconazole [From Diflucan] Allergy (Unknown, Verified 12/15/21 04:31) gabapentin [From Neurontin] Allergy (Unknown, Verified 12/15/21 04:31) halobetasol [From Ultravate] Allergy (Unknown, Verified 12/15/21 04:31) itraconazole [From Sporanox] Allergy (Unknown, Verified 12/15/21 04:31) ketoconazole [From Nizoral] Allergy (Unknown, Verified 12/15/21 04:31) lansoprazole [From Prevacid] Allergy (Unknown, Verified 12/15/21 04:31) levofloxacin [From Levaquin] Allergy (Unknown, Verified 12/15/21 04:31) metformin Allergy (Unknown, Verified 12/15/21 04:31) mirtazapine [From Remeron] Allergy (Unknown, Verified 12/15/21 04:31) moxifloxacin [From Avelox] Allergy (Unknown, Verified 12/15/21 04:31) naproxen [From Naprelan] Allergy (Unknown, Verified 12/15/21 04:31) neomycin [From Neosporin ([id number])] Allergy (Unknown, Verified 12/15/21 04:31) oxycodone [From Percodan] Allergy (Unknown, Verified 12/15/21 04:31) polymyxin B [From Neosporin ([id number])] Allergy (Unknown, Verified 12/15/21 04:31) prednisone Allergy (Unknown, Verified 12/15/21 04:31) pregabalin [From Lyrica] Allergy (Unknown, Verified 12/15/21 04:31) promethazine [From Phenergan] Allergy (Unknown, Verified 12/15/21 04:31) sulindac [From Clinoril] Allergy (Unknown, Verified 12/15/21 04:31) venlafaxine [From Effexor] Allergy (Unknown, Verified 12/15/21 04:31) cephalexin [From Keflex] Adverse Reaction (Unknown, Verified 12/15/21 04:31) Nausea Home Medications: Cholecalciferol (Vitamin D3) [Vitamin D3] 2,000 unit PO DAILY 03/22/18 [History] Clonazepam 0.5 mg [Klonopin 0.5 MG] 0.5 mg PO UD PRN 03/22/18 [History] Ibandronate Sodium [Boniva] 150 mg PO UD 03/22/18 [History] Nebivolol HCl [Bystolic] 10 mg PO DAILY 03/10/19 [History] Clopidogrel Bisulfate [PLAVIX Tablet] 75 mg PO DAILY 02/07/21 [History] Levothyroxine Sodium [Euthyrox] 75 mcg PO UD 02/07/21 [History] Amlodipine Besylate 5 mg [Norvasc 5 mg] 5 mg PO DAILY 12/10/21 [History] Atorvastatin Calcium [Lipitor] 20 mg PO DAILY 12/10/21 [History] Travel Risk - International Travel Have you traveled outside of the country in past 3 weeks: No - Coronavirus Screening Are you exhibiting any of the following symptoms?: No Close contact with a COVID-19 positive Pt in past 14-21 Days: No - Vaccine Status Have you recieved a Covid-19 vaccination: 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 <NIKHIL SANTANA - Last Filed: 12/15/21 06:46> - Review of Systems Constitutional: No Symptoms Eyes: No Symptoms Ears, Nose, & Throat: No Symptoms Respiratory: No Symptoms Cardiac: No Symptoms Abdominal/Gastrointestinal: No Symptoms Genitourinary Symptoms: No Symptoms Musculoskeletal: Arthralgias, Back Pain, Fall, Injury, Joint Pain, Joint Swe lling Skin: Skin Lesions Neurological: No Symptoms Endocrine: No Symptoms Hematologic/Lymphatic: No Symptoms Immunological/Allergic: No Symptoms <NIKHIL SANTANA - Last Filed: 12/15/21 06:46> - Past Medical History Pertinent Past Medical History: Yes Neurological History: No Pertinent History ENT History: No Pertinent History Cardiac History: Hypertension Respiratory History: No Pertinent History Endocrine Medical History: Diabetes Type II Musculoskeletal History: No Pertinent History GI Medical History: Hemorrhoids History: Renal Disease Psycho-Social History: No Pertinent History Female Reproductive Disorders: No Pertinent History - Past Surgical History Past Surgical History: Yes Neuro Surgical History: No Pertinent History Cardiac: Cardiac Stent Respiratory: No Pertinent History Gastrointestinal: Cholecystectomy, Hemorrhoidectomy Genitourinary: No Pertinent History Musculoskeletal: Other Female Surgical History: Hysterectomy Other Surgical History: breast reduction, breast repair, lumps removed both breasts, feet surgery-"nerve damage fixed", right wrist " nerve surgery unknow" Biopsy of thyroid - Social History Smoking Status: Never smoker Exposure to second hand smoke: No Drug Use: none Patient Lives Alone: Yes Significant Family History: no pertinent family hx <ESTHERNIKHIL - Last Filed: 12/15/21 06:46> - Harmans Coma Score Best Eye Response (Harmans): (4) open spontaneously Best Verbal Response (Severo): (5) oriented Best Motor Response (Harmans): (6) obeys commands Harmans Total: 15 - Physical Exam General Appearance: no apparent distress, alert Head Injury: no evidence of injury Eye Exam: PERRL/EOMI ENT Exam: airway nml, No evidence of ENT injury, No dental injury Neck Exam: supple, full range of motion, normal alignment Respiratory/Chest Exam: normal breath sounds, No chest tenderness, No respiratory distress Cardiovascular Exam: normal heart sounds, regular rate/rhythm Gastrointestinal Exam: soft, No tenderness Back Exam: normal inspection, decreased range of motion, muscle spasm, point tenderness (Bilateral sacroiliac area), No vertebral tenderness Extremity Exam: joint swelling (Left elbow with open wound partially embedded st aples.), limited range of motion (Right hip), bony point tenderness, hip tenderness (Right), tenderness (Right hip) Neurologic Exam: alert, oriented x 3, cooperative Skin Exam: normal color SpO2 Interpretation: normal SpO2: 99 O2 Delivery: Room Air <NIKHIL SANTANA - Last Filed: 12/15/21 06:46> - Nursing Vital Signs Nursing Vital Signs: Initial Vital Signs Temperature 97.0 F 12/15/21 04:20 Pulse Rate 79 12/15/21 04:20 Pain Scale Pain Intensity 4 Ordered Tests: Active Orders 24 hr Category Date Time Status ELBOW (2 VIEW) Stat Exams 12/15/21 05:29 Completed HIPS LOUIE(2V) INCL PEL IF DONE Stat Exams 12/15/21 05:29 Completed Medication Summary Discontinued Medications Generic Name Dose Route Start Last Admin Trade Name Estevan PRN Reason Stop Dose Admin Morphine Sulfate 4 mg 12/15/21 05:07 12/15/21 05:22 Morphine Sulfate 4 Mg/Ml Injection IV 12/15/21 05:08 4 mg STAT ONE Administration Morphine Sulfate Confirm 12/15/21 05:20 Morphine Sulfate 4 Mg/Ml Injection Administered 12/15/21 05:21 Dose 4 mg .ROUTE .STK-MED ONE Ondansetron HCl 4 mg 12/15/21 05:07 12/15/21 05:21 Ondansetron Hcl 4 Mg/2 Ml Vial IV 12/15/21 05:08 4 mg STAT ONE Administration Ondansetron HCl Confirm 12/15/21 05:19 Ondansetron Hcl 4 Mg/2 Ml Vial Administered 12/15/21 05:20 Dose 4 mg .ROUTE .STK-MED ONE - Progress Progress: improved <NIKHIL SANTANA - Last Filed: 12/15/21 06:46> - Progress Progress Note: 12/15/21 06:52 She is given symptomatic treatment, on reevaluation feeling better. Still have pain in the right hip. Wound left elbow is clean and partially embedded reilly are removed. X-ray hip is pending, care is transferred to Dr. Garcia at shift change. (NIKHIL SANTANA) <NIKHIL SANTANA - Last Filed: 12/15/21 06:46> - Departure Departure Disposition: Home Critical Care Time: No <ADRYAN GARCIA - Last Filed: 12/15/21 09:09> - Departure Clinical Impression: Hip pain Condition: Stable Referrals: SHIRLEY MILLER [Primary Care Provider] - Follow up/PCP as directed Additional Instructions: Follow-up with your primary care physician today by phone to make arranges for follow-up appointment for further evaluation management of your chronic hip pain
--- NOTE | 2021-12-15 08:56 | XRAY ---
Exam: 2 views of the left elbow from 12/15/2021. Comparison: 3 views of the left elbow from 12/10/2021. Indication: 81-year-old female fell; history of recent laceration left elbow with reilly; left elbow pain. Findings: AP and lateral radiographs of the left elbow were obtained. The bones are demineralized. I see no acute fracture or dislocation. Subtle chronic appearing soft tissue ossifications are seen adjacent to the medial epicondyle of the distal left humerus and the lateral margin of the lateral epicondyle of the distal left humerus. This may reflect hydroxyapatite deposition disease, or chronic calcific tendinitis. No posterior fat pad is seen. The left elbow joint space appears essentially unremarkable. A couple surgical reilly are seen projected posterior to the olecranon. There is some soft tissue irregularity overlying the posterior left elbow consistent with the patient's recent soft tissue injury at this site. This appears improved. I note a couple tiny surgical clips anterior to the distal left humerus representing no change. Adjacent to the surgical clips, I note some soft tissue air anteriorly which is new. Correlate clinically. Faint vascular calcification is seen anteriorly. Impression: 1. No acute fracture, dislocation, or definite joint effusion of the left elbow is seen. 2. There is some new soft tissue air seen superficially within the anterior aspect of the left elbow. Correlate clinically. A couple surgical clips are again seen in the adjacent region anterior to the distal left humerus. 3. Soft tissue contour irregularity seen posterior to the left elbow is significantly improved from 12/10/2021. A couple surgical reilly are seen posterior to the left elbow which are new. No other abnormality is seen at this site. 4. Bone demineralization.
--- NOTE | 2021-12-15 09:04 | XRAY ---
Exam: AP pelvis and 2 views of each hip from 12/15/2021. Comparison: Sacrum and coccyx films from 12/10/2021. Indication: 81-year-old female fell; bilateral hip pain; patient unable to lie supine. Findings: AP film of the pelvis including both hips and coned-down AP and frog-leg lateral views of each hip were obtained. The bones are demineralized. I see no acute fracture or dislocation of the pelvis or either hip. The pubic rings appear intact bilaterally. The hip joint spaces are fairly well-maintained with minimal/mild acetabular spurring. Some surgical clips are again seen within the left inguinal region. Extensive arteriosclerotic vascular calcification is again seen. I also note multiple soft tissue calcifications projected over the upper pelvis on each side of midline which I believe represent gluteal calcified granulomas. There are some stable calcifications within the lower pelvis closer to the midline consistent with calcified phleboliths. The sacroiliac joints appear unremarkable. There is evidence of at least moderate degenerative disc disease at L5-S1 representing no change. Impression: 1. No acute fracture or dislocation of the pelvis or either hip is seen. This is unchanged from 12/10/2021. 2. Numerous other incidental findings, as discussed above, are again seen representing no change from 12/10/2021.
[2021-12-15 09:12] VITALS: BP 142/54; PULSE 65; O2SAT 96
== END 2021-12-15 09:27 | disposition home or self-care (01) ==
LOC: ED 04:17
DX: M25.551 Pain in right hip (principal); M25.522 Pain in left elbow; M54.50 Low back pain, unspecified; I10 Essential (primary) hypertension; E11.9 Type 2 diabetes mellitus without complications; Z79.02 Long term (current) use of antithrombotics/antiplatelets; Z79.899 Other long term (current) drug therapy
CPT/HCPCS: 36000; 73070; 73521; 96374; 96375; 99284; J2270; J2405

== ENCOUNTER 2022-01-12 14:56 | Emergency (ER) | payer MEDICARE ==
--- NOTE | 2022-01-12 15:06 | ERPHSYRPT ---
- History of Present Illness Time Seen by Provider: 01/12/22 15:05 Source: patient, family Exam Limitations: no limitations Physician History: This is an 81-year-old white female patient who has kidney failure and is on renal dialysis Wednesday and presents to our emergency department soon after dialysis because of 4 days of diarrhea and weakness. Patient also has complaints of generalized body aches and pains. She denies chest pain. She denies shortness of breath. Patient does have a history of gastroesophageal reflux disease, hypertension, hype both thyroidism and hyperlipidemia. She has not had any vomiting. She has not had fevers. Timing/Duration: day(s) (4) Severity: mild (To moderate amount of weakness) Associated Symptoms: nausea, weakness, other (Generalized aches and pains), No shortness of breath, No chest pain, No fever Allergies/Adverse Reactions: amoxicillin [From Augmentin] Allergy (Unknown, Verified 01/12/22 15:09) pt states "i don't really know why all those are on my list and i have never had a really bad reaction from anything". aspirin Allergy (Unknown, Verified 01/12/22 15:09) bacitracin [From Neosporin ([id number])] Allergy (Unknown, Verified 01/12/22 15:09) betamethasone [From Lotrisone] Allergy (Unknown, Verified 01/12/22 15:09) cefpodoxime [From Vantin] Allergy (Unknown, Verified 01/12/22 15:09) cetirizine [From Zyrtec] Allergy (Unknown, Verified 01/12/22 15:09) ciprofloxacin [From Cipro] Allergy (Unknown, Verified 01/12/22 15:09) clavulanic acid [From Augmentin] Allergy (Unknown, Verified 01/12/22 15:09) clotrimazole [From Lotrisone] Allergy (Unknown, Verified 01/12/22 15:09) codeine Allergy (Unknown, Verified 01/12/22 15:09) enalaprilat [From Vasotec] Allergy (Unknown, Verified 01/12/22 15:09) fluconazole [From Diflucan] Allergy (Unknown, Verified 01/12/22 15:09) gabapentin [From Neurontin] Allergy (Unknown, Verified 01/12/22 15:09) halobetasol [From Ultravate] Allergy (Unknown, Verified 01/12/22 15:09) itraconazole [From Sporanox] Allergy (Unknown, Verified 01/12/22 15:09) ketoconazole [From Nizoral] Allergy (Unknown, Verified 01/12/22 15:09) lansoprazole [From Prevacid] Allergy (Unknown, Verified 01/12/22 15:09) levofloxacin [From Levaquin] Allergy (Unknown, Verified 01/12/22 15:09) metformin Allergy (Unknown, Verified 01/12/22 15:09) mirtazapine [From Remeron] Allergy (Unknown, Verified 01/12/22 15:09) moxifloxacin [From Avelox] Allergy (Unknown, Verified 01/12/22 15:09) naproxen [From Naprelan] Allergy (Unknown, Verified 01/12/22 15:09) neomycin [From Neosporin ([id number])] Allergy (Unknown, Verified 01/12/22 15:09) oxycodone [From Percodan] Allergy (Unknown, Verified 01/12/22 15:09) polymyxin B [From Neosporin ([id number])] Allergy (Unknown, Verified 01/12/22 15:09) prednisone Allergy (Unknown, Verified 01/12/22 15:09) pregabalin [From Lyrica] Allergy (Unknown, Verified 01/12/22 15:09) promethazine [From Phenergan] Allergy (Unknown, Verified 01/12/22 15:09) sulindac [From Clinoril] Allergy (Unknown, Verified 01/12/22 15:09) venlafaxine [From Effexor] Allergy (Unknown, Verified 01/12/22 15:09) cephalexin [From Keflex] Adverse Reaction (Unknown, Verified 01/12/22 15:09) Nausea Home Medications: Cholecalciferol (Vitamin D3) [Vitamin D3] 2,000 unit PO DAILY 03/22/18 [History] Clonazepam 0.5 mg [Klonopin 0.5 MG] 0.5 mg PO UD PRN 03/22/18 [History] Ibandronate Sodium [Boniva] 150 mg PO UD 03/22/18 [History] Nebivolol HCl [Bystolic] 10 mg PO DAILY 03/10/19 [History] Clopidogrel Bisulfate [PLAVIX Tablet] 75 mg PO DAILY 02/07/21 [History] Levothyroxine Sodium [Euthyrox] 75 mcg PO UD 02/07/21 [History] Amlodipine Besylate 5 mg [Norvasc 5 mg] 5 mg PO DAILY 12/10/21 [History] Atorvastatin Calcium [Lipitor] 20 mg PO DAILY 12/10/21 [History] Nitrofurantoin Monohyd/M-Cryst [Nitrofurantoin Mcculloch-Mcr 100 mg] 100 mg PO BID 01/12/22 [History] Hx Influenza Vaccination/Date Given: No Hx Pneumococcal Vaccination/Date Given: Yes Travel Risk - International Travel Have you traveled outside of the country in past 3 weeks: No - Coronavirus Screening Are you exhibiting any of the following symptoms?: Yes Symptoms: Vomiting/Diarrhea, Headaches/Body Aches/Fatigue Close contact with a COVID-19 positive Pt in past 14-21 Days: No - Vaccine Status Have you recieved a Covid-19 vaccination: Yes Fr[employer] Hanging: [employer] - Vaccination Dates Dates if Unknown: ? - Review of Systems Constitutional: Weakness Eyes: No Symptoms Ears, Nose, & Throat: No Symptoms Respiratory: No Symptoms Cardiac: No Symptoms Abdominal/Gastrointestinal: Nausea, Diarrhea, No Abdominal Pain, No Vomiting, No Constipation Genitourinary Symptoms: No Symptoms Musculoskeletal: No Symptoms Skin: No Symptoms Neurological: No Symptoms Psychological: No Symptoms Endocrine: No Symptoms Hematologic/Lymphatic: No Symptoms Immunological/Allergic: No Symptoms All Other Systems: Reviewed and Negative - Past Medical History Pertinent Past Medical History: Yes Neurological History: No Pertinent History ENT History: No Pertinent History Cardiac History: Hypertension Respiratory History: No Pertinent History Endocrine Medical History: Diabetes Type II Musculoskeletal History: No Pertinent History GI Medical History: Hemorrhoids History: Renal Disease Psycho-Social History: No Pertinent History Female Reproductive Disorders: No Pertinent History - Past Surgical History Past Surgical History: Yes Neuro Surgical History: No Pertinent History Cardiac: Cardiac Stent Respiratory: No Pertinent History Gastrointestinal: Cholecystectomy, Hemorrhoidectomy Genitourinary: No Pertinent History Musculoskeletal: Other Female Surgical History: Hysterectomy Other Surgical History: breast reduction, breast repair, lumps removed both breasts, feet surgery-"nerve damage fixed", right wrist " nerve surgery unknow" Biopsy of thyroid - Social History Smoking Status: Never smoker Exposure to second hand smoke: No Drug Use: none Patient Lives Alone: Yes Significant Family History: no pertinent family hx - Nursing Vital Signs Nursing Vital Signs: Initial Vital Signs Temperature 98.3 F 01/12/22 15:00 Pulse Rate 84 01/12/22 15:00 Blood Pressure 154/45 01/12/22 15:00 O2 Sat by Pulse Oximetry 96 01/12/22 15:00 Pain Scale Pain Intensity 6 - Physical Exam General Appearance: no apparent distress, alert, anxiety Eye Exam: PERRL/EOMI, eyes nml inspection Ears, Nose, Throat Exam: normal ENT inspection, moist mucous membranes Neck Exam: normal inspection, non-tender, supple, full range of motion Respiratory Exam: normal breath sounds, lungs clear, airway intact, No chest tenderness, No respiratory distress Cardiovascular Exam: regular rate/rhythm, normal heart sounds, normal peripheral pulses Gastrointestinal/Abdomen Exam: soft, normal bowel sounds, No tenderness Pelvic Exam: not done Rectal Exam: not done Back Exam: normal inspection, normal range of motion, No CVA tenderness, No vertebral tenderness Extremity Exam: normal inspection, normal range of motion, pelvis stable Neurologic Exam: alert, oriented x 3, cooperative, cytopathology technologist II-XII nml as tested, normal mood/affect, nml cerebellar function, nml station & gait, sensation nml Skin Exam: normal color, warm, dry Lymphatic Exam: No adenopathy SpO2 Interpretation: normal O2 Delivery: Room Air - Course Nursing assessment & vital signs reviewed: Yes Ordered Tests: Active Orders 24 hr Category Date Time Status IV Insertion STAT Care 01/12/22 15:09 Active Telemetry q4h Care 01/12/22 15:43 Active House Regular Diet Diet 01/13/22 Breakfast Active AMYLASE Stat Lab 01/12/22 15:20 Completed CBC W DIFF Stat Lab 01/12/22 15:20 Completed CMP Stat Lab 01/12/22 15:20 Completed LIPASE Stat Lab 01/12/22 15:20 Completed T4 (Thyroxine) Stat Lab 01/12/22 Completed TSH [TSH, 3RD Generation] Stat Lab 01/12/22 15:37 Completed UA W/RFX CULTURE Stat Lab 01/12/22 17:13 Results Medication Summary Generic Name Dose Route Start Last Admin Trade Name Freq PRN Reason Stop Dose Admin Sodium Chloride 1,000 mls @ 100 mls/hr 01/12/22 15:15 01/12/22 15:21 Sodium Chloride 0.9% 1000 Ml IV 02/11/22 15:14 100 mls/hr .Q10H JOSE ANTONIO Administration Discontinued Medications Generic Name Dose Route Start Last Admin Trade Name Estevan PRN Reason Stop Dose Admin Potassium Chloride 20 meq in 100 mls @ 50 mls/hr 01/12/22 15:43 01/12/22 16:09 Potassium Chloride 20 Meq In Water 100ml IV 01/12/22 17:42 50 mls/hr STAT ONE Administration Potassium Chloride Confirm 01/12/22 16:07 Potassium Chloride 20 Meq In Water 100ml Administered 01/12/22 16:08 Dose 100 mls @ ud IV .STK-MED ONE Morphine Sulfate 2 mg 01/12/22 15:17 01/12/22 15:22 Morphine Sulfate 2 Mg/Ml Inj IV 01/12/22 15:18 2 mg STAT ONE Administration Morphine Sulfate Confirm 01/12/22 15:19 Morphine Sulfate 2 Mg/Ml Inj Administered 01/12/22 15:20 Dose 2 mg .ROUTE .STK-MED ONE Ondansetron HCl 4 mg 01/12/22 15:17 01/12/22 15:21 Ondansetron Hcl 4 Mg/2 Ml Vial IV 01/12/22 15:18 4 mg STAT ONE Administration Ondansetron HCl Confirm 01/12/22 15:18 Ondansetron Hcl 4 Mg/2 Ml Vial Administered 01/12/22 15:19 Dose 4 mg .ROUTE .STK-MED ONE Potassium Chloride 20 meq 01/12/22 15:42 01/12/22 16:08 Potassium Chloride Tab 10 Meq Tab PO 01/12/22 15:43 20 meq STAT ONE Administration Potassium Chloride Confirm 01/12/22 16:07 Potassium Chloride Tab 10 Meq Tab Administered 01/12/22 16:08 Dose 20 meq PO .STK-MED ONE Lab/Rad Data: Laboratory Result Diagrams 01/12/22 15:20 01/12/22 15:20 Laboratory Results 01/12/22 01/12/22 01/12/22 Range/Units Unknown 17:13 15:37 WBC (4.0-10.5) x10^3/uL RBC (4.1-5.4) x10^6/uL Hgb (12.0-16.0) g/dL Hct (35-47) % MCV (78-100) fL MCH (26-32) pg MCHC (32-36) g/dL RDW (11.5-14.0) % Plt Count (150-450) x10^3/uL MPV (7.5-11.0) fL Gran % (36.0-66.0) % Immature Gran % (Auto) (0.00-0.4) % Nucleat RBC Rel Count (0.00-0.1) % Eos # (Auto) (0-0.5) x10^3/uL Immature Gran # (Auto) (0.00-0.03) x10^3u/L Absolute Lymphs (auto) (1.0-4.6) x10^3/uL Absolute Monos (auto) (0.0-1.3) x10^3/uL Absolute Nucleated RBC (0.00-0.01) x10^3u/L Lymphocytes % (24.0-44.0) % Monocytes % (0.0-12.0) % Eosinophils % (0.00-5.0) % Basophils % (0.0-0.4) % Absolute Granulocytes (1.4-6.9) x10^3/uL Basophils # (0-0.4) x10^3/uL Sodium (137-145) mmol/L Potassium (3.5-5.1) mmol/L Chloride (98-107) mmol/L Carbon Dioxide (22-30) mmol/L Anion Gap (5-15) MEQ/L BUN (7-17) mg/dL Creatinine (0.52-1.04) mg/dL Estimated GFR ML/MIN Glucose (74-106) mg/dL Calcium (8.4-10.2) mg/dL Total Bilirubin (0.2-1.3) mg/dL AST (14-36) U/L ALT (0-35) U/L Alkaline Phosphatase (38-126) U/L Serum Total Protein (6.3-8.2) g/dL Albumin (3.5-5.0) g/dL Amylase (30-110) U/L Lipase (23-300) U/L Thyroxine (T4) 9.75 (5.53-10.96) ug/dL TSH 3rd Generation 2.740 (0.47-4.68) mIU/L Urinalys Dipstick Clnc MAIN LAB Urine Color ALEN (YELLOW) Urine Appearance CLOUDY (CLEAR) Urine pH 5.5 (5-6) Ur Specific [place] 1.025 (1.005-1.025) POC Urine Protein Conf >=300 (Negative) Urine Ketones TRACE (NEGATIVE) Urine Nitrite NEGATIVE (NEGATIVE) Urine Bilirubin MODERATE (NEGATIVE) Urine Urobilinogen 0.2 (0-1) mg/dL Urine Leukocytes NEGATIVE (NEGATIVE) Urine WBC (Auto) Pending Urine RBC (Auto) Pending U Epithel Cells (Auto) Pending Urine Bacteria (Auto) Pending Urine RBC MODERATE (0-5) Corky/ul Ur Culture Indicated? Pending Urine Glucose NEGATIVE (NEGATIVE) mg/dL C. difficile Screen (NEGATIVE) C.difficile 027-NAP1-B1 (NEGATIVE) Influenza Type A Ag (NEGATIVE) Influenza Type B Ag (NEGATIVE) RSV (PCR) (Negative) SARS-CoV-2 (PCR) (NEGATIVE) 01/12/22 01/12/22 01/12/22 Range/Units 15:20 15:20 15:20 WBC (4.0-10.5) x10^3/uL RBC (4.1-5.4) x10^6/uL Hgb (12.0-16.0) g/dL Hct (35-47) % MCV (78-100) fL MCH (26-32) pg MCHC (32-36) g/dL RDW (11.5-14.0) % Plt Count (150-450) x10^3/uL MPV (7.5-11.0) fL Gran % (36.0-66.0) % Immature Gran % (Auto) (0.00-0.4) % Nucleat RBC Rel Count (0.00-0.1) % Eos # (Auto) (0-0.5) x10^3/uL Immature Gran # (Auto) (0.00-0.03) x10^3u/L Absolute Lymphs (auto) (1.0-4.6) x10^3/uL Absolute Monos (auto) (0.0-1.3) x10^3/uL Absolute Nucleated RBC (0.00-0.01) x10^3u/L Lymphocytes % (24.0-44.0) % Monocytes % (0.0-12.0) % Eosinophils % (0.00-5.0) % Basophils % (0.0-0.4) % Absolute Granulocytes (1.4-6.9) x10^3/uL Basophils # (0-0.4) x10^3/uL Sodium 135 L (137-145) mmol/L Potassium 2.8 L* (3.5-5.1) mmol/L Chloride 94 L (98-107) mmol/L Carbon Dioxide 38 H (22-30) mmol/L Anion Gap 6.1 (5-15) MEQ/L BUN 11 (7-17) mg/dL Creatinine 1.46 H (0.52-1.04) mg/dL Estimated GFR 36.5 ML/MIN Glucose 123 H (74-106) mg/dL Calcium 8.7 (8.4-10.2) mg/dL Total Bilirubin 1.50 H (0.2-1.3) mg/dL AST 18 (14-36) U/L ALT 11 (0-35) U/L Alkaline Phosphatase 124 (38-126) U/L Serum Total Protein 6.1 L (6.3-8.2) g/dL Albumin 3.4 L (3.5-5.0) g/dL Amylase 38 (30-110) U/L Lipase 14 L (23-300) U/L Thyroxine (T4) (5.53-10.96) ug/dL TSH 3rd Generation (0.47-4.68) mIU/L Urinalys Dipstick Clnc Urine Color (YELLOW) Urine Appearance (CLEAR) Urine pH (5-6) Ur Specific [place] (1.005-1.025) POC Urine Protein Conf (Negative) Urine Ketones (NEGATIVE) Urine Nitrite (NEGATIVE) Urine Bilirubin (NEGATIVE) Urine Urobilinogen (0-1) mg/dL Urine Leukocytes (NEGATIVE) Urine WBC (Auto) Urine RBC (Auto) U Epithel Cells (Auto) Urine Bacteria (Auto) Urine RBC (0-5) Corky/ul Ur Culture Indicated? Urine Glucose (NEGATIVE) mg/dL C. difficile Screen NEGATIVE (NEGATIVE) C.difficile 027-NAP1-B1 PRESUMPTIVE NEGATIVE (NEGATIVE) Influenza Type A Ag NEGATIVE (NEGATIVE) Influenza Type B Ag NEGATIVE (NEGATIVE) RSV (PCR) NEGATIVE (Negative) SARS-CoV-2 (PCR) NEGATIVE (NEGATIVE) 01/12/22 Range/Units 15:20 WBC 20.1 H (4.0-10.5) x10^3/uL RBC 3.48 L (4.1-5.4) x10^6/uL Hgb 10.8 L (12.0-16.0) g/dL Hct 34.5 L (35-47) % MCV 99.1 (78-100) fL MCH 31.0 (26-32) pg MCHC 31.3 L (32-36) g/dL RDW 17.9 H (11.5-14.0) % Plt Count 430 (150-450) x10^3/uL MPV 10.9 (7.5-11.0) fL Gran % 89.3 H (36.0-66.0) % Immature Gran % (Auto) 0.6 H (0.00-0.4) % Nucleat RBC Rel Count 0.0 (0.00-0.1) % Eos # (Auto) 0.26 (0-0.5) x10^3/uL Immature Gran # (Auto) 0.13 H (0.00-0.03) x10^3u/L Absolute Lymphs (auto) 0.78 L (1.0-4.6) x10^3/uL Absolute Monos (auto) 0.88 (0.0-1.3) x10^3/uL Absolute Nucleated RBC 0.00 (0.00-0.01) x10^3u/L Lymphocytes % 3.9 L (24.0-44.0) % Monocytes % 4.4 (0.0-12.0) % Eosinophils % 1.3 (0.00-5.0) % Basophils % 0.5 (0.0-0.4) % Absolute Granulocytes 17.99 H (1.4-6.9) x10^3/uL Basophils # 0.10 (0-0.4) x10^3/uL Sodium (137-145) mmol/L Potassium (3.5-5.1) mmol/L Chloride (98-107) mmol/L Carbon Dioxide (22-30) mmol/L Anion Gap (5-15) MEQ/L BUN (7-17) mg/dL Creatinine (0.52-1.04) mg/dL Estimated GFR ML/MIN Glucose (74-106) mg/dL Calcium (8.4-10.2) mg/dL Total Bilirubin (0.2-1.3) mg/dL AST (14-36) U/L ALT (0-35) U/L Alkaline Phosphatase (38-126) U/L Serum Total Protein (6.3-8.2) g/dL Albumin (3.5-5.0) g/dL Amylase (30-110) U/L Lipase (23-300) U/L Thyroxine (T4) (5.53-10.96) ug/dL TSH 3rd Generation (0.47-4.68) mIU/L Urinalys Dipstick Clnc Urine Color (YELLOW) Urine Appearance (CLEAR) Urine pH (5-6) Ur Specific [place] (1.005-1.025) POC Urine Protein Conf (Negative) Urine Ketones (NEGATIVE) Urine Nitrite (NEGATIVE) Urine Bilirubin (NEGATIVE) Urine Urobilinogen (0-1) mg/dL Urine Leukocytes (NEGATIVE) Urine WBC (Auto) Urine RBC (Auto) U Epithel Cells (Auto) Urine Bacteria (Auto) Urine RBC (0-5) Corky/ul Ur Culture Indicated? Urine Glucose (NEGATIVE) mg/dL C. difficile Screen (NEGATIVE) C.difficile 027-NAP1-B1 (NEGATIVE) Influenza Type A Ag (NEGATIVE) Influenza Type B Ag (NEGATIVE) RSV (PCR) (Negative) SARS-CoV-2 (PCR) (NEGATIVE) - Departure Departure Disposition: Home Clinical Impression: Mild dehydration, Hypokalemia, Diarrhea Condition: Stable Critical Care Time: No Referrals: SHIRLEY MILLER [Primary Care Provider] - Follow up/PCP as directed Additional Instructions: Drink plenty of fluids. Take your prescription as prescribed. Follow-up with your primary care physician tomorrow by phone to make arrangements for a follow- up appointment for further evaluation and management. Return to the hospital lab on 01/14/2022 to recheck your potassium level. Prescriptions: Potassium Chloride Tab* [Klor Con] 10 meq PO DAILY #2 tab MDD 1
[2022-01-12 15:09] VITALS: O2SAT 96
[2022-01-12] MEDS ORDERED: Sodium Chloride 0.9% 1000 ML 1,000 ML IV SCH (15:15)
[2022-01-12] MEDS ORDERED: MORPHINE SULFATE 2 MG INJ IV ONE (15:17)
[2022-01-12] MEDS ORDERED: Zofran 4 MG/2 ML VIAL IV ONE (15:17)
[2022-01-12] MEDS ORDERED: Zofran 4 MG/2 ML VIAL ONE (15:18)
[2022-01-12] MEDS ORDERED: MORPHINE SULFATE 2 MG INJ ONE (15:19)
[2022-01-12] MEDS ORDERED: Sodium Chloride 0.9% 1000 ML 1,000 ML ONE (15:19)
[2022-01-12 15:32] LABS: Absolute Neutrophil Ct (ANC) 17.99 x10^3/uL (1.4-6.9); Eosinophil % 1.3 % (0.00-5.0); Eosinophil (Absolute #) 0.26 x10^3/uL (0-0.5); Hematocrit 34.5 % (35-47); Hemoglobin 10.8 g/dL (12.0-16.0); Lymphocyte (Absolute #) 0.78 x10^3/uL (1.0-4.6); Lymphocytes % 3.9 % (24.0-44.0); Mean Cell Volume 99.1 fL (78-100); Mean Corpuscular Hgb Concent. 31.3 g/dL (32-36); Mean Platelet Volume 10.9 fL (7.5-11.0); Monocyte (Absolute #) 0.88 x10^3/uL (0.0-1.3); Monocytes % 4.4 % (0.0-12.0); Neutrophil % 89.3 % (36.0-66.0); Platelet Count 430 x10^3/uL (150-450); Red Blood Count 3.48 x10^6/uL (4.1-5.4); Red Cell Distribution Width 17.9 % (11.5-14.0); White Blood Count 20.1 x10^3/uL (4.0-10.5)
[2022-01-12 15:38] LABS: ALBUMIN 3.4 g/dL (3.5-5.0); ANION GAP 6.1 MEQ/L (5-15); BILIRUBIN,TOTAL 1.5 mg/dL (0.2-1.3); Calcium 8.7 mg/dL (8.4-10.2); Creatinine 1 1.46 mg/dL (0.52-1.04); EST GLOMERULAR FILTRATION RATE 36.5 ML/MIN; Total Protein 6.1 g/dL (6.3-8.2)
[2022-01-12 15:41] LABS: Potassium 2.8 mmol/L (3.5-5.1)
[2022-01-12] MEDS ORDERED: Klor Con PO ONE ×2 (15:42→16:07)
[2022-01-12] MEDS ORDERED: POTASSIUM CHLORIDE 20 mEq IN WATER 100ML 20 MEQ/100 ML BAG IV ONE (15:43)
[2022-01-12] MEDS ORDERED: POTASSIUM CHLORIDE 20 mEq IN WATER 100ML 100 ML IV ONE (16:07)
[2022-01-12 16:08] LABS: INFLUENZA A NEGATIVE (NEGATIVE); INFLUENZA B NEGATIVE (NEGATIVE); RESPIRATORY SYNCTIAL VIRUS NEGATIVE (Negative); SARS-CoV-2 Xpert Express NEGATIVE (NEGATIVE)
[2022-01-12 16:14] VITALS: BP 141/55; PULSE 80
[2022-01-12 17:09] LABS: 027 TOX PROD PRESUMPTIVE NEGATIVE (NEGATIVE); TOXIGENIC C. DIFF ORG NEGATIVE (NEGATIVE)
[2022-01-12 17:34] LABS: Appearance CLOUDY (CLEAR); Bilirubin MODERATE (NEGATIVE); Dipstick done @ ? MAIN LAB; Glucose NEGATIVE (NEGATIVE); Ketones TRACE (NEGATIVE); Nitrite NEGATIVE (NEGATIVE); Ph 5.5 (5-6); Protein,Urine Dip >=300 (Negative); RBC MODERATE Ery/ul (0-5); Specific Gravity 1.025 (1.005-1.025); Urobilinogen 0.2 mg/dL (0-1)
[2022-01-12 17:39] LABS: Bacteria PACKED /HPF (NEGATIVE); RBC 0-2 /HPF (0-2); WBC 26-50 /HPF (0-5)
[2022-01-12 17:50] LABS: Urine Cultured Indicated? YES
[2022-01-12] MEDS ORDERED: Flagyl 500 MG PO ONE (18:51)
[2022-01-12] MEDS ORDERED: Flagyl 500 MG ONE (18:53)
== END 2022-01-12 19:08 | disposition home or self-care (01) ==
LOC: ED 14:56
DX: E86.0 Dehydration (principal); E87.6 Hypokalemia; R19.7 Diarrhea, unspecified; R53.1 Weakness; M79.10 Myalgia, unspecified site; E78.5 Hyperlipidemia, unspecified; E11.22 Type 2 diabetes mellitus with diabetic chronic kidney disease; I12.0 Hypertensive chronic kidney disease with stage 5 chronic kidney disease or end stage renal disease; N18.6 End stage renal disease; Z99.2 Dependence on renal dialysis; Z79.02 Long term (current) use of antithrombotics/antiplatelets; Z79.899 Other long term (current) drug therapy
CPT/HCPCS: 0241U; 36000; 36415; 80053; 81015; 82150; 83690; 84436; 84443; 85025; 87077; 87086; 87186; 87493; 96374; 96375; 99284; J2270; J2405; J3480; A9270-GY

== ENCOUNTER 2022-03-26 13:21 | Emergency (ER) | payer MEDICARE ==
[2022-03-26] MEDS ORDERED: Zofran 4 MG/2 ML VIAL IV ONE (13:40)
[2022-03-26] MEDS ORDERED: MORPHINE SULFATE 4 MG INJ IV ONE (13:40)
[2022-03-26] MEDS ORDERED: Zofran 4 MG/2 ML VIAL ONE (13:53)
[2022-03-26] MEDS ORDERED: MORPHINE SULFATE 4 MG INJ ONE (13:54)
[2022-03-26 13:55] LABS: Hematocrit 36.5 % (35-47); Hemoglobin 11.6 g/dL (12.0-16.0); Mean Cell Volume 97.1 fL (78-100); Mean Corpuscular Hemoglobin 30.9 pg (26-32); Mean Corpuscular Hgb Concent. 31.8 g/dL (32-36); Mean Platelet Volume 10.5 fL (7.5-11.0); Platelet Count 558 x10^3/uL (150-450); Red Blood Count 3.76 x10^6/uL (4.1-5.4)
[2022-03-26 14:14] LABS: ALBUMIN 4.1 g/dL (3.5-5.0); ANION GAP 10.8 MEQ/L (5-15); BILIRUBIN,TOTAL 1.1 mg/dL (0.2-1.3); Calcium 9.6 mg/dL (8.4-10.2); Creatinine 1 2.61 mg/dL (0.52-1.04); EST GLOMERULAR FILTRATION RATE 18.7 ML/MIN; Potassium 3.9 mmol/L (3.5-5.1); Total Protein 6.5 g/dL (6.3-8.2)
--- NOTE | 2022-03-26 14:49 | XRAY ---
Indication: Status post fall following lumbar kyphoplasty. Multiple contiguous axial images obtained through the head without contrast. Comparison: February 07, 2021 Again age-appropriate global atrophy and mild periventricular degenerative micro-ischemia bilaterally. No acute intracranial hemorrhage, abnormal extra-axial fluid collection, or mass effect. Fourth ventricle is midline without hydrocephalus. Bony calvarium intact. Paranasal sinuses and mastoid air cells are clear. Impression: Continued nonacute senile brain.
--- NOTE | 2022-03-26 14:51 | XRAY ---
Indication: Status post fall following lumbar kyphoplasty. Multiple contiguous axial images obtained through the cervical spine. Sagittal and coronal reformatted images obtained. Comparison: February 07, 2021 Age-related osteopenia. Axial images negative for acute fracture, suspicious bony lesions, or spinal canal stenosis. Mild/moderate multilevel bilateral degenerative facet hypertrophy. Sagittal and coronal reformatted images demonstrates normal alignment with vertebral body heights/disc spaces maintained. No acute compression fracture, subluxation, or jumped facet. Normal appearing craniocervical junction. Visualized noncontrasted soft tissues demonstrates moderate bilateral carotid calcifications. Lung apices clear. Impression: 1. Negative acute fracture/subluxation. 2. Osteopenia and multilevel degenerative changes.
--- NOTE | 2022-03-26 14:57 | XRAY ---
Indication: Status post fall following lumbar kyphoplasty. Multiple contiguous axial images obtained through the thoracic spine. Sagittal and coronal reformatted images obtained. Comparison: Thoracic radiograph December 20, 2021 Osseous structures remain demineralized. 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 Axial images negative for acute fracture, suspicious bony lesions, or spinal canal stenosis. Sagittal and coronal reformatted images demonstrates normal thoracic alignment. Stable minimal T11 remote compression fracture with less than 10% height loss. No acute compression fracture or subluxation. Visualized noncontrasted soft tissues demonstrates tiny mediastinal/bilateral perihilar calcified granulomas, small nonspecific right effusion, small hiatal hernia, extensive scattered vascular calcifications including both main renal arteries, and cholecystectomy clips. CT lumbar spine reported separately. Impression: 1. Negative acute fracture/subluxation. 2. Stable osteopenia, DISH, remote T11 compression fracture, extensive arterial sclerotic calcifications, and old granulomatous disease. 3. Incidental small nonspecific right effusion and small hiatal hernia.
--- NOTE | 2022-03-26 15:05 | XRAY ---
Indication: Status post fall following lumbar kyphoplasty. Multiple contiguous axial images obtained through the lumbar spine. Sagittal and coronal reformatted images obtained. Comparison: None. There is lumbar radiograph March 05, 2022 CT thoracic spine reported separately. Osseous structures remain demineralized. Grossly stable multilevel bridging/nonbridging endplate osteophytes and remote L4 compression fracture with kyphoplasty. Superior L4 endplate fracture encroaches on the spinal canal. Stable minimal remote L1 superior endplate fracture with less than 25% loss and tiny L2/L3 round bone islands. Interval L1/L5 kyphoplasty. There is broad-based L4-S1 disc bulge with subsequent bilateral foraminal stenosis. Visualized SI joints are bilaterally symmetric. No acute fracture or suspicious bony lesions. Sagittal and coronal reformatted images demonstrate normal lumbar alignment again with minimal L5-S1 disc space narrowing. No acute compression fracture or subluxation. Visualized noncontrasted soft tissues again demonstrates extensive scattered vascular calcifications. Impression: 1. Interval L1/L5 kyphoplasty and stable L4 kyphoplasty. 2. Stable remote L1/L4 endplate fractures. L4 fracture encroaches on spinal canal. 3. L4-S1 broad-based degenerative disc bulge better evaluated with outpatient MRI. 4. Chronic findings including osteopenia, multilevel degenerative changes, and extensive vascular calcifications.
[2022-03-26 15:25] VITALS: PULSE 56
[2022-03-26 15:32] LABS: White Blood Count 32.3 x10^3/uL (4.0-10.5)
--- NOTE | 2022-03-26 16:07 | XRAY ---
Indication: Status post fall following lumbar kyphoplasty. Comparison: January 07, 2022 Portable chest remains inflated and clear. Heart not enlarged for AP portable technique again with CABG. Bony thorax intact again with osteopenia and degenerative changes. No new/acute findings.
[2022-03-26] MEDS ORDERED: VANCOMYCIN 1 GRAM/200 ML BAG 1 GM/200 ML PIGGYBACK IV ONE ×2 (16:21→17:17)
[2022-03-26] MEDS ORDERED: AZACTAM 1 GM*** 1 GM in Sodium Chloride 100ML MINI-BAG PLUS 100 ML IV ONE (16:22)
[2022-03-26 16:33] VITALS: BP 143/50; O2SAT 95
--- NOTE | 2022-03-26 16:56 | ERPHSYRPT ---
- History of Present Illness Time Seen by Provider: 03/26/22 13:28 Source: patient, EMS Exam Limitations: no limitations Patient Subjective Stated Complaint: Patient fell at home just prior to coming to the ED. Patient was walking up her concrete steps and fell backward and hit the back of her head. Patient states she just had surgery with Dr. Hill on her lower back earlier today; she has no c/o pain to her lower back. All c/o pain are to her upper back and back of head. Patient was ambulating without her walker. Triage Nursing Assessment: Patient brought into the ED by ambulance. She is alert and oriented. No SOB. Hematoma noted to the back of her head; patient states she normally takes plavix but has not taken it in the past 7 days for preparation for her surgery today. 4 bandages noted to her lower back with minimal bloody drainage. Fistula noted to LUE; patient states she is a hemodialysis patient. Moves BLE WNL without difficulties. C-Collar placed on patient. Physician History: 81-year-old female with multiple medical problems including end-stage renal disease on versus M/W/F, chronic back pain who had L1/L5 kyphoplasty done by Dr. Hill earlier today presented in the ER with a chief complaint of fall. Patient reports she is supposed to follow-up with a walker or cane and she did not have anyone, tried to take steps and fell backward on concrete with a goose egg on the back of head without any bleeding, loss of consciousness. Denies any neck pain but does have upper and mid back pain with no numbness tingling or weakness of lower extremity. Does have pain with movements of lower extremity which is there for quite some time. Denies any chest pain palpitations or shortness of breath before or after the fall. Occurred: just prior to arrival Reason for Fall: lost balance Injuries/Pain Location: head, back Loss of Consciousness: no loss of consciousness Quality: sharpness Severity of Pain-Max: moderate Severity of Pain-Current: moderate Modifying Factors: Improves With: immobilization. Worsens With: movement Associated Symptoms (Fall): back pain, headache, muscle spasms, trouble walking, No chest pain, No dizziness, No extremity injury, No lightheadedness, No neck pain, No ringing in ears, No seizures, No shortness of breath, No slurred speech, No vomiting, No vision changes Allergies/Adverse Reactions: amoxicillin [From Augmentin] Allergy (Unknown, Verified 03/26/22 13:22) pt states "i don't really know why all those are on my list and i have never had a really bad reaction from anything". aspirin Allergy (Unknown, Verified 03/26/22 13:22) bacitracin [From Neosporin ([id number])] Allergy (Unknown, Verified 03/26/22 13:22) betamethasone [From Lotrisone] Allergy (Unknown, Verified 03/26/22 13:22) cefpodoxime [From Vantin] Allergy (Unknown, Verified 03/26/22 13:22) cetirizine [From Zyrtec] Allergy (Unknown, Verified 03/26/22 13:22) ciprofloxacin [From Cipro] Allergy (Unknown, Verified 03/26/22 13:22) clavulanic acid [From Augmentin] Allergy (Unknown, Verified 03/26/22 13:22) clotrimazole [From Lotrisone] Allergy (Unknown, Verified 03/26/22 13:22) codeine Allergy (Unknown, Verified 03/26/22 13:22) enalaprilat [From Vasotec] Allergy (Unknown, Verified 03/26/22 13:22) fluconazole [From Diflucan] Allergy (Unknown, Verified 03/26/22 13:22) gabapentin [From Neurontin] Allergy (Unknown, Verified 03/26/22 13:22) halobetasol [From Ultravate] Allergy (Unknown, Verified 03/26/22 13:22) itraconazole [From Sporanox] Allergy (Unknown, Verified 03/26/22 13:22) ketoconazole [From Nizoral] Allergy (Unknown, Verified 03/26/22 13:22) lansoprazole [From Prevacid] Allergy (Unknown, Verified 03/26/22 13:22) levofloxacin [From Levaquin] Allergy (Unknown, Verified 03/26/22 13:22) metformin Allergy (Unknown, Verified 03/26/22 13:22) mirtazapine [From Remeron] Allergy (Unknown, Verified 03/26/22 13:22) moxifloxacin [From Avelox] Allergy (Unknown, Verified 03/26/22 13:22) naproxen [From Naprelan] Allergy (Unknown, Verified 03/26/22 13:22) neomycin [From Neosporin ([id number])] Allergy (Unknown, Verified 03/26/22 13:22) oxycodone [From Percodan] Allergy (Unknown, Verified 03/26/22 13:22) polymyxin B [From Neosporin ([id number])] Allergy (Unknown, Verified 03/26/22 13:22) prednisone Allergy (Unknown, Verified 03/26/22 13:22) pregabalin [From Lyrica] Allergy (Unknown, Verified 03/26/22 13:22) promethazine [From Phenergan] Allergy (Unknown, Verified 03/26/22 13:22) sulindac [From Clinoril] Allergy (Unknown, Verified 03/26/22 13:22) venlafaxine [From Effexor] Allergy (Unknown, Verified 03/26/22 13:22) cephalexin [From Keflex] Adverse Reaction (Unknown, Verified 03/26/22 13:22) Nausea Home Medications: Cholecalciferol (Vitamin D3) [Vitamin D3] 2,000 unit PO DAILY 03/22/18 [History] Clonazepam 0.5 mg [Klonopin 0.5 MG] 0.5 mg PO UD PRN 03/22/18 [History] Ibandronate Sodium [Boniva] 150 mg PO UD 03/22/18 [History] Nebivolol HCl [Bystolic] 10 mg PO DAILY 03/10/19 [History] Clopidogrel Bisulfate [PLAVIX Tablet] 75 mg PO DAILY 02/07/21 [History] Levothyroxine Sodium [Euthyrox] 75 mcg PO UD 02/07/21 [History] Amlodipine Besylate 5 mg [Norvasc 5 mg] 5 mg PO DAILY 12/10/21 [History] Atorvastatin Calcium [Lipitor] 20 mg PO DAILY 12/10/21 [History] Nitrofurantoin Monohyd/M-Cryst [Nitrofurantoin [place]-Mcr 100 mg] 100 mg PO BID 01/12/22 [History] Hx Tetanus, Diphtheria Vaccination/Date Given: Yes Hx Influenza Vaccination/Date Given: No Hx Pneumococcal Vaccination/Date Given: Yes Immunizations Up to Date: Yes Travel Risk - International Travel Have you traveled outside of the country in past 3 weeks: No - Coronavirus Screening Are you exhibiting any of the following symptoms?: No Close contact with a COVID-19 positive Pt in past 14-21 Days: No - Vaccine Status Have you recieved a Covid-19 vaccination: Yes 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 - Review of Systems Constitutional: No Symptoms Eyes: No Symptoms Ears, Nose, & Throat: No Symptoms Respiratory: No Symptoms Cardiac: No Symptoms Abdominal/Gastrointestinal: No Symptoms Genitourinary Symptoms: No Symptoms Musculoskeletal: Back Pain, Fall Skin: No Symptoms Neurological: Headache Psychological: No Symptoms Endocrine: No Symptoms Hematologic/Lymphatic: No Symptoms Immunological/Allergic: No Symptoms - Past Medical History Pertinent Past Medical History: Yes Neurological History: No Pertinent History ENT History: No Pertinent History Cardiac History: High Cholesterol, Hypertension Respiratory History: No Pertinent History Endocrine Medical History: Diabetes Type II, Hypothyroidism Musculoskeletal History: No Pertinent History GI Medical History: Hemorrhoids History: Renal Disease Psycho-Social History: No Pertinent History Female Reproductive Disorders: No Pertinent History - Past Surgical History Past Surgical History: Yes Neuro Surgical History: No Pertinent History Cardiac: Cardiac Stent Respiratory: No Pertinent History Gastrointestinal: Cholecystectomy, Hemorrhoidectomy Genitourinary: No Pertinent History Musculoskeletal: Other Female Surgical History: Hysterectomy Other Surgical History: breast reduction, breast repair, lumps removed both br easts, feet surgery (unknown), Biopsy of thyroid, Kyphoplasty of L1 and L5 by Dr. Hill on 03/26/22 - Social History Smoking Status: Never smoker Exposure to second hand smoke: No Drug Use: none Patient Lives Alone: Yes Significant Family History: no pertinent family hx - Nursing Vital Signs Nursing Vital Signs: Initial Vital Signs Temperature 96.8 F 03/26/22 13:26 Pulse Rate 60 03/26/22 13:26 Respiratory Rate 17 03/26/22 13:26 Blood Pressure 172/40 03/26/22 13:26 O2 Sat by Pulse Oximetry 98 03/26/22 13:26 Pain Scale Pain Intensity 0 - Severo Coma Score Best Eye Response (Severo): (4) open spontaneously Best Verbal Response (Severo): (5) oriented Best Motor Response ([place]): (6) obeys commands Severo Total: 15 - Physical Exam General Appearance: no apparent distress, alert Head Injury: swelling, tenderness (Occipital area 3 x 3 cm soft swelling/hematoma with no step in deformity), No raccoon eyes Eye Exam: PERRL/EOMI, eyes nml inspection ENT Exam: airway nml, No evidence of ENT injury, No dental injury Neck Exam: supple, trachea midline, normal alignment, c-collar in place (C- collar placed) Respiratory/Chest Exam: normal breath sounds, respiratory distress, No chest tenderness Cardiovascular Exam: normal heart sounds, regular rate/rhythm Gastrointestinal Exam: soft, normal bowel sounds, No tenderness Back Exam: other (Multiple incision dobbs with dressing applied on both sides of lumbar spines.) Extremity Exam: normal inspection, normal range of motion Neurologic Exam: alert, oriented x 3, cooperative, 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 as tested, normal mood/affect, sensation nml Skin Exam: normal color SpO2 Interpretation: normal SpO2: 95 O2 Delivery: Room Air Ordered Tests: Active Orders 24 hr Category Date Time Status CERVICAL SPINE WO CONTRAST [CT] Stat Exams 03/26/22 13:40 Completed CHEST 1 VIEW (PORTABLE) Stat Exams 03/26/22 15:44 Completed HEAD WITHOUT CONTRAST [CT] Stat Exams 03/26/22 13:40 Completed LUMBAR SPINE W/O [CT] Stat Exams 03/26/22 13:40 Completed THORACIC SPINE W/O CONTRAST [CT] Stat Exams 03/26/22 13:40 Completed BLOOD CULTURE Stat Lab 03/26/22 Received CBC W DIFF Stat Lab 03/26/22 13:48 Results CMP Stat Lab 03/26/22 13:48 Completed Lactic Acid Routine Lab 03/26/22 14:08 Completed Manual Differential NC Stat Lab 03/26/22 13:48 Results PROCALCITONIN Stat Lab 03/26/22 16:00 Completed Pathologist Review Stat Lab 03/26/22 13:48 Results UA W/RFX CULTURE Stat Lab 03/26/22 Ordered Medication Summary Generic Name Dose Route Start Last Admin Trade Name Freq PRN Reason Stop Dose Admin Vancomycin HCl 1 gm in 200 mls @ 125 mls/hr 03/26/22 16:21 Vancomycin 1 Gram/200 Ml Bag IV 03/26/22 17:56 ONCE ONE Discontinued Medications Generic Name Dose Route Start Last Admin Trade Name Freq PRN Reason Stop Dose Admin Aztreonam 1 gm/ Sodium 100 mls @ 200 mls/hr 03/26/22 16:22 03/26/22 16:44 Chloride IV 03/26/22 16:51 200 mls/hr STAT ONE Administration Morphine Sulfate 4 mg 03/26/22 13:40 03/26/22 13:58 Morphine Sulfate 4 Mg/Ml Injection IV 03/26/22 13:41 4 mg STAT ONE Administration Morphine Sulfate Confirm 03/26/22 13:54 Morphine Sulfate 4 Mg/Ml Injection Administered 03/26/22 13:55 Dose 4 mg .ROUTE .STK-MED ONE Ondansetron HCl 4 mg 03/26/22 13:40 03/26/22 13:57 Ondansetron Hcl 4 Mg/2 Ml Vial IV 03/26/22 13:41 4 mg STAT ONE Administration Ondansetron HCl Confirm 03/26/22 13:53 Ondansetron Hcl 4 Mg/2 Ml Vial Administered 03/26/22 13:54 Dose 4 mg .ROUTE .STK-MED ONE Lab/Rad Data: Laboratory Result Diagrams 03/26/22 13:48 03/26/22 13:48 Laboratory Results 03/26/22 03/26/22 03/26/22 Range/Units 16:00 14:08 13:48 WBC (4.0-10.5) x10^3/uL RBC (4.1-5.4) x10^6/uL Hgb (12.0-16.0) g/dL Hct (35-47) % MCV (78-100) fL MCH (26-32) pg MCHC (32-36) g/dL RDW (11.5-14.0) % Plt Count (150-450) x10^3/uL MPV (7.5-11.0) fL Smear Path Review Sodium 136 L (137-145) mmol/L Potassium 3.9 (3.5-5.1) mmol/L Chloride 97 L (98-107) mmol/L Carbon Dioxide 32 H (22-30) mmol/L Anion Gap 10.8 (5-15) MEQ/L BUN 30 H (7-17) mg/dL Creatinine 2.61 H (0.52-1.04) mg/dL Estimated GFR 18.7 ML/MIN Glucose 195 H (74-106) mg/dL Lactic Acid 1.9 (0.4-2.0) Calcium 9.6 (8.4-10.2) mg/dL Total Bilirubin 1.10 (0.2-1.3) mg/dL AST 38 H (14-36) U/L ALT 19 (0-35) U/L Alkaline Phosphatase 64 (38-126) U/L Serum Total Protein 6.5 (6.3-8.2) g/dL Albumin 4.1 (3.5-5.0) g/dL Procalcitonin 0.277 H (0.030-0.080) ng/mL 03/26/22 Range/Units 13:48 WBC 32.3 H* (4.0-10.5) x10^3/uL RBC 3.76 L (4.1-5.4) x10^6/uL Hgb 11.6 L (12.0-16.0) g/dL Hct 36.5 (35-47) % MCV 97.1 (78-100) fL MCH 30.9 (26-32) pg MCHC 31.8 L (32-36) g/dL RDW 18.0 H (11.5-14.0) % Plt Count 558 H (150-450) x10^3/uL MPV 10.5 (7.5-11.0) fL Smear Path Review Pending Sodium (137-145) mmol/L Potassium (3.5-5.1) mmol/L Chloride (98-107) mmol/L Carbon Dioxide (22-30) mmol/L Anion Gap (5-15) MEQ/L BUN (7-17) mg/dL Creatinine (0.52-1.04) mg/dL Estimated GFR ML/MIN Glucose (74-106) mg/dL Lactic Acid (0.4-2.0) Calcium (8.4-10.2) mg/dL Total Bilirubin (0.2-1.3) mg/dL AST (14-36) U/L ALT (0-35) U/L Alkaline Phosphatase (38-126) U/L Serum Total Protein (6.3-8.2) g/dL Albumin (3.5-5.0) g/dL Procalcitonin (0.030-0.080) ng/mL - Progress Progress: improved Progress Note: 03/26/22 16:55 She is given morphine for symptomatic relief, on reevaluation feeling better. I have obtained CT head cervical spine which are negative for any acute trauma related findings. CT cervical spines showed some old compression fracture and no acute changes in the lumbar spine. I have contacted Dr. Patel primary orthopedic/spinal surgeon who operated on her this morning and he has reviewed lumbar spine films and do not think patient has any acute trauma related findings. Patient has a white count of 32 with elevated procalcitonin and no obvious source of infection. Chest x-ray negative as well. She does not have any abdominal tenderness. Given a dose of vancomycin and Azactam. Patient wou ld be transferred to [facility] where Dr. Hill has privileges and also has dialysis services available. I have called [facility] transfer center and waiting for callback. 03/26/22 17:[address] Thomas at [facility], reviewed history, work-up and patient is accepted for transfer Discussed with Dr.: Other ( final surgery/ [facility] ER) Counseled pt/family regarding: lab results, diagnosis, rad results - Departure Departure Disposition: Transfer Clinical Impression: Fall, Contusion of occipital region of scalp Sepsis Qualifiers: Sepsis type: sepsis due to unspecified organism Sepsis acute organ dysfunction status: unspecified Qualified Code(s): A41.9 - Sepsis, unspecified organism Condition: Stable Critical Care Time: No Referrals: SHIRLEY MILLER [Primary Care Provider] - Follow up/PCP as directed
[2022-03-26 17:07] LABS: ANISOCYTOSIS 1+; BAND 2 % (0.0-2.0); Eosinophil 2 % (0.00-3.0); Lymphocytes 8 % (24-44); Monocyte 3 % (0.0-12.0); Platelet Estimate INCREASED (NORMAL); Total Cells Counted 100; Toxic Granulation 2+
== END 2022-03-26 18:12 | disposition short-term general hospital (02) ==
LOC: ED 13:21
DX: S00.03XA Contusion of scalp, initial encounter (principal); W18.30XA Fall on same level, unspecified, initial encounter; A41.9 Sepsis, unspecified organism; I12.0 Hypertensive chronic kidney disease with stage 5 chronic kidney disease or end stage renal disease; E11.22 Type 2 diabetes mellitus with diabetic chronic kidney disease; N18.6 End stage renal disease; E78.5 Hyperlipidemia, unspecified; Z79.02 Long term (current) use of antithrombotics/antiplatelets; Z79.899 Other long term (current) drug therapy; M54.6 Pain in thoracic spine; Z99.2 Dependence on renal dialysis
CPT/HCPCS: 36000; 36415; 70450; 71045; 72125; 72128; 72131; 80053; 83605; 84145; 85025; 87040; 96365; 96367; 96374; 96375; 99285; J2270; J2405; L0120; J3370

== ENCOUNTER 2022-11-16 18:15 | Emergency (ER) | payer MEDICARE ==
--- NOTE | 2022-11-16 18:28 | ERPHSYRPT ---
- History of Present Illness Time Seen by Provider: 11/16/22 18:28 Source: patient, EMS, senior living records, old records Exam Limitations: no limitations Physician History: This is an 82-year-old white female patient who lost her balance at the [facility]. She was brought in by the ambulance service who provided independent history. I also reviewed the senior living records that were brought to us from the paramedics. Looking back at the patient's old, prior history she has frequent falls. Today, patient lost her balance fell to the left hitting the left posterior lateral of her head and landing on the left shoulder. She complains of a headache mild left-sided neck pain and left shoulder pain. She did not lose consciousness. The ambulance service provided the patient with 4 mg of morphine intravenously and 4 mg of Zofran intravenously. Patient arrives with a cervical collar in place. She has no chest pain. She has no shortness of breath. She has no abdominal pain. She has no other extremity injuries or complaints of pain. Occurred: just prior to arrival Injuries/Pain Location: head, neck, upper extremity (Left shoulder) Loss of Consciousness: no loss of consciousness Severity of Pain-Max: mild (To moderate) Severity of Pain-Current: mild (To moderate) Modifying Factors: Improves With: movement Associated Symptoms (Fall): extremity injury (Left shoulder), headache, neck pain Allergies/Adverse Reactions: amoxicillin [From Augmentin] Allergy (Unknown, Verified 11/16/22 18:41) pt states "i don't really know why all those are on my list and i have never had a really bad reaction from anything". aspirin Allergy (Unknown, Verified 11/16/22 18:41) bacitracin [From Neosporin ([id number])] Allergy (Unknown, Verified 11/16/22 18:41) betamethasone [From Lotrisone] Allergy (Unknown, Verified 11/16/22 18:41) cefpodoxime [From Vantin] Allergy (Unknown, Verified 11/16/22 18:41) cetirizine [From Zyrtec] Allergy (Unknown, Verified 11/16/22 18:41) ciprofloxacin [From Cipro] Allergy (Unknown, Verified 11/16/22 18:41) clavulanic acid [From Augmentin] Allergy (Unknown, Verified 11/16/22 18:41) clotrimazole [From Lotrisone] Allergy (Unknown, Verified 11/16/22 18:41) codeine Allergy (Unknown, Verified 11/16/22 18:41) enalaprilat [From Vasotec] Allergy (Unknown, Verified 11/16/22 18:41) fluconazole [From Diflucan] Allergy (Unknown, Verified 11/16/22 18:41) gabapentin [From Neurontin] Allergy (Unknown, Verified 11/16/22 18:41) halobetasol [From Ultravate] Allergy (Unknown, Verified 11/16/22 18:41) itraconazole [From Sporanox] Allergy (Unknown, Verified 11/16/22 18:41) ketoconazole [From Nizoral] Allergy (Unknown, Verified 11/16/22 18:41) lansoprazole [From Prevacid] Allergy (Unknown, Verified 11/16/22 18:41) levofloxacin [From Levaquin] Allergy (Unknown, Verified 11/16/22 18:41) metformin Allergy (Unknown, Verified 11/16/22 18:41) mirtazapine [From Remeron] Allergy (Unknown, Verified 11/16/22 18:41) moxifloxacin [From Avelox] Allergy (Unknown, Verified 11/16/22 18:41) naproxen [From Naprelan] Allergy (Unknown, Verified 11/16/22 18:41) neomycin [From Neosporin ([id number])] Allergy (Unknown, Verified 11/16/22 18:41) oxycodone [From Percodan] Allergy (Unknown, Verified 11/16/22 18:41) polymyxin B [From Neosporin ([id number])] Allergy (Unknown, Verified 11/16/22 18:41) prednisone Allergy (Unknown, Verified 11/16/22 18:41) pregabalin [From Lyrica] Allergy (Unknown, Verified 11/16/22 18:41) promethazine [From Phenergan] Allergy (Unknown, Verified 11/16/22 18:41) sulindac [From Clinoril] Allergy (Unknown, Verified 11/16/22 18:41) venlafaxine [From Effexor] Allergy (Unknown, Verified 11/16/22 18:41) cephalexin [From Keflex] Adverse Reaction (Unknown, Verified 11/16/22 18:41) Nausea Home Medications: Cholecalciferol (Vitamin D3) [Vitamin D3] 2,000 unit PO DAILY 03/22/18 [History] Clonazepam 0.5 mg [Klonopin 0.5 MG] 0.5 mg PO UD PRN 03/22/18 [History] Ibandronate Sodium [Boniva] 150 mg PO UD 03/22/18 [History] Nebivolol HCl [Bystolic] 10 mg PO DAILY 03/10/19 [History] Clopidogrel Bisulfate [PLAVIX Tablet] 75 mg PO DAILY 02/07/21 [History] Levothyroxine Sodium [Euthyrox] 75 mcg PO UD 02/07/21 [History] Amlodipine Besylate 5 mg [Norvasc 5 mg] 5 mg PO DAILY 12/10/21 [History] Atorvastatin Calcium [Lipitor] 20 mg PO DAILY 12/10/21 [History] Nitrofurantoin Monohyd/M-Cryst [Nitrofurantoin [place]-Mcr 100 mg] 100 mg PO BID 01/12/22 [History] Hx Tetanus, Diphtheria Vaccination/Date Given: Yes Hx Influenza Vaccination/Date Given: No Hx Pneumococcal Vaccination/Date Given: Yes Travel Risk - Vaccine Status Have you recieved a Covid-19 vaccination: Yes 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 - Past Medical History Pertinent Past Medical History: Yes Neurological History: No Pertinent History ENT History: No Pertinent History Cardiac History: High Cholesterol, Hypertension Respiratory History: No Pertinent History Endocrine Medical History: Diabetes Type II, Hypothyroidism Musculoskeletal History: No Pertinent History GI Medical History: Hemorrhoids History: Renal Disease Psycho-Social History: No Pertinent History Female Reproductive Disorders: No Pertinent History - Past Surgical History Past Surgical History: Yes Neuro Surgical History: No Pertinent History Cardiac: Cardiac Stent Respiratory: No Pertinent History Gastrointestinal: Cholecystectomy, Hemorrhoidectomy Genitourinary: No Pertinent History Musculoskeletal: Other Female Surgical History: Hysterectomy Other Surgical History: breast reduction, breast repair, lumps removed both breasts, feet surgery (unknown), Biopsy of thyroid, Kyphoplasty of L1 and L5 by Dr. Hill on 03/26/22 - Social History Smoking Status: Never smoker Exposure to second hand smoke: No Drug Use: none Patient Lives Alone: Yes Significant Family History: no pertinent family hx - Nursing Vital Signs Nursing Vital Signs: Initial Vital Signs Temperature 97.4 F 11/16/22 18:15 Pulse Rate 67 11/16/22 18:15 Respiratory Rate 18 11/16/22 18:15 Blood Pressure 147/57 11/16/22 18:15 O2 Sat by Pulse Oximetry 98 11/16/22 18:15 Pain Scale Pain Intensity 10 Ordered Tests: Active Orders 24 hr Category Date Time Status CERVICAL SPINE WO CONTRAST [CT] Stat Exams 11/16/22 19:02 Completed HEAD WITHOUT CONTRAST [CT] Stat Exams 11/16/22 19:02 Completed SHOULDER Stat Exams 11/16/22 19:03 Completed Medication Summary Discontinued Medications Generic Name Dose Route Start Last Admin Trade Name Estevan PRN Reason Stop Dose Admin Morphine Sulfate 2 mg 11/16/22 20:09 11/16/22 20:16 Morphine Sulfate 2 Mg/Ml Inj IV 11/16/22 20:10 2 mg STAT ONE Administration Morphine Sulfate Confirm 11/16/22 20:13 Morphine Sulfate 2 Mg/Ml Inj Administered 11/16/22 20:14 Dose 2 mg .ROUTE .STK-MED ONE Ondansetron HCl 4 mg 11/16/22 20:09 11/16/22 20:15 Ondansetron Hcl 4 Mg/2 Ml Vial IV 11/16/22 20:10 4 mg STAT ONE Administration Ondansetron HCl Confirm 11/16/22 20:13 Ondansetron Hcl 4 Mg/2 Ml Vial Administered 11/16/22 20:14 Dose 4 mg .ROUTE .STK-MED ONE - Progress Progress: improved, pain not gone completely, re-examined Progress Note: 11/16/22 21:01 This patient's medical issue is 1 of low to moderate complexity. Level complexity in the work-up performed is based on review of the patient's past medical history, review of the patient's medication list, review the patient drug allergy list, history present illness and physical findings on examination. The work-up in this patient includes an x-ray of the left shoulder, CT scan of the cervical spine, CT scan of the head. We also provided the patient with 2 mg intravenous morphine and 4 mg of intravenous Zofran. I reviewed the shoulder x-rays and interpreted myself. There is a nondisplaced left humeral neck fracture. The CT scan of the head and cervical spine were performed without contrast. They were interpreted by the radiologist. The CT scan of the head shows a nonacute senile brain. The CT scan of the cervical spine shows no acute fracture or subluxations present. Counseled pt/family regarding: diagnosis, need for follow-up, rad results Medical Desision Making - Independent Historian Additional History obtained from: Quality Assurance Associate/EMT - Diagnostic Testing Diagnostic test were ordered, analyzed, and reviewed by me: Yes Radiological Interpretation: Interpreted by me, Reviewed by me, Teleradiologist Report - Risk of complications The pt has a mod risk of morbidity or mortality based on: Need for prescription drug management - Departure Departure Disposition: Extended Care Facility Clinical Impression: Fracture of neck of left humerus Condition: Stable Critical Care Time: No Referrals: ESSENCE CASTILLO NP, RN [Primary Care Provider] - Follow up/PCP as directed Additional Instructions: Wear sling for comfort. Follow-up as an outpatient at the [facility] orthopedic clinic tomorrow morning between 8 AM and 10 PM. It is a walk-in clinic. Make arrangements for this patient to be there to be evaluated.
[2022-11-16 18:46] VITALS: TEMP 97.4
[2022-11-16] MEDS ORDERED: MORPHINE SULFATE 2 MG INJ IV ONE (20:09)
[2022-11-16] MEDS ORDERED: Zofran 4 MG/2 ML VIAL IV ONE (20:09)
[2022-11-16] MEDS ORDERED: MORPHINE SULFATE 2 MG INJ ONE (20:13)
[2022-11-16] MEDS ORDERED: Zofran 4 MG/2 ML VIAL ONE (20:13)
--- NOTE | 2022-11-16 20:31 | XRAY ---
Indication: Status post fall. Trauma. Multiple contiguous axial images obtained through the head without contrast. Comparison: March 26, 2022 Again age-appropriate and mild periventricular degenerative micro-ischemia bilaterally. 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 No acute intracranial hemorrhage, abnormal extra-axial fluid collection, or mass effect. Fourth ventricle is midline. Bony calvarium intact. Visualized paranasal sinuses and mastoid air cells are clear. Impression: Again nonacute senile brain with stable MRI proven right perimesencephalic cistern/right middle fossa meningioma.
--- NOTE | 2022-11-16 20:33 | XRAY ---
Indication: Status post fall. Trauma. Multiple contiguous axial images obtained through the cervical spine. Sagittal and coronal reformatted images obtained. Comparison: March 26, 2022 Again age-related osteopenia. Axial images again negative for acute fracture, suspicious bony lesions, or spinal canal stenosis. Stable mild/moderate multilevel bilateral degenerative facet hypertrophy. Sagittal and coronal reformatted images again demonstrates normal alignment with vertebral body heights/disc spaces maintained. No acute compression fracture, subluxation, or jumped facet. Normal appearing craniocervical junction. Visualized noncontrasted soft tissues again demonstrates moderate bilateral carotid calcifications. Lung apices unremarkable. Impression: 1. Continued negative acute fracture/subluxation. 2. Again chronic findings including osteopenia, multilevel degenerative spondylosis, and bilateral carotid calcifications.
--- NOTE | 2022-11-16 20:35 | XRAY ---
Indication: Pain following fall. Comparison: February 07, 2021 3 view left shoulder demonstrates new humeral neck comminuted fracture with minimally displaced lateral curvilinear bone fragment. Stable osteopenia and mild AC degenerative arthropathy. No other bony, articular, or soft tissue abnormalities.
[2022-11-16 21:23] VITALS: BP 162/52; PULSE 68; RESP 16; O2SAT 93
== END 2022-11-16 21:45 | disposition home or self-care (01) ==
LOC: ED 18:15
DX: S42.212A Unspecified displaced fracture of surgical neck of left humerus, initial encounter for closed fracture (principal); W19.XXXA Unspecified fall, initial encounter; Y92.129 Unspecified place in nursing home as the place of occurrence of the external cause; R51.9 Headache, unspecified; M54.2 Cervicalgia; E78.5 Hyperlipidemia, unspecified; I10 Essential (primary) hypertension; E11.9 Type 2 diabetes mellitus without complications; Z79.02 Long term (current) use of antithrombotics/antiplatelets; Z79.899 Other long term (current) drug therapy
CPT/HCPCS: 36000; 70450; 72125; 73030; 96374; 96375; 99284; J2270; J2405

== ENCOUNTER 2023-06-21 10:27 | Emergency (ER) | payer MEDICARE ==
[2023-06-21 10:44] VITALS: TEMP 100.2
[2023-06-21] MEDS ORDERED: Sodium Chloride 0.9% 1000 ML 1,000 ML ONE (11:10)
[2023-06-21] MEDS ORDERED: VANCOMYCIN 1 GRAM/200 ML BAG 1 GM/200 ML PIGGYBACK IV ONE (11:10)
[2023-06-21] MEDS: Sodium Chloride 0.9% 1000 ML 1,000 ML IV STA (11:12)
--- NOTE | 2023-06-21 11:17 | ERPHSYRPT ---
- History of Present Illness Time Seen by Provider: 06/21/23 10:31 Source: patient, EMS, detention records, other Exam Limitations: clinical condition Patient Subjective Stated Complaint: EMS states "The detention said she had a fever and was altered this moring. senior living advised she was her last normal two to three days ago." Triage Nursing Assessment: PT presented alert and confused, pt does not speak much, just grunts. PT has C collar on all the time due to c1, c7 and t3. PT resting on bed not speaking. Physician History: Patient is here with altered mental status, presented with confusion this mor valeriy. Patient has a recent C1 and C7, T3 fracture. She was seen in this emergency department initially for this. Was transferred to [facility]. Unsure how long she was at [facility] for. Patient presents today with altered mental status for 2 to 3 days. She is in a C-spine collar, minimal conversation. Patient able to only answer with grunting really. Patient does follow commands such as when I asked her to take a big breath in. Patient presented to dialysis clinic this morning which is apparently when all this new confusion was first documented which is why she was transferred here. Patient has a temperature of 100.2. Patient is tachycardic, she is hypoxic at 93% on 2 L. Apparently was 86% at the facility. At this point in time patient is meeting sepsis criteria therefore we will start with broad-spectrum antibiotics, appropriate fluid resuscitation, sepsis labs and workup. Allergies/Adverse Reactions: amoxicillin [From Augmentin] Allergy (Unknown, Verified 06/07/23 10:54) pt states "i don't really know why all those are on my list and i have never had a really bad reaction from anything". aspirin Allergy (Unknown, Verified 06/07/23 10:54) bacitracin [From Neosporin ([id number])] Allergy (Unknown, Verified 06/07/23 10:54) betamethasone [From Lotrisone] Allergy (Unknown, Verified 06/07/23 10:54) cefpodoxime [From Vantin] Allergy (Unknown, Verified 06/07/23 10:54) cetirizine [From Zyrtec] Allergy (Unknown, Verified 06/07/23 10:54) ciprofloxacin [From Cipro] Allergy (Unknown, Verified 06/07/23 10:54) clavulanic acid [From Augmentin] Allergy (Unknown, Verified 06/07/23 10:54) clotrimazole [From Lotrisone] Allergy (Unknown, Verified 06/07/23 10:54) codeine Allergy (Unknown, Verified 06/07/23 10:54) enalaprilat [From Vasotec] Allergy (Unknown, Verified 06/07/23 10:54) fluconazole [From Diflucan] Allergy (Unknown, Verified 06/07/23 10:54) gabapentin [From Neurontin] Allergy (Unknown, Verified 06/07/23 10:54) halobetasol [From Ultravate] Allergy (Unknown, Verified 06/07/23 10:54) itraconazole [From Sporanox] Allergy (Unknown, Verified 06/07/23 10:54) ketoconazole [From Nizoral] Allergy (Unknown, Verified 06/07/23 10:54) lansoprazole [From Prevacid] Allergy (Unknown, Verified 06/07/23 10:54) levofloxacin [From Levaquin] Allergy (Unknown, Verified 06/07/23 10:54) metformin Allergy (Unknown, Verified 06/07/23 10:54) mirtazapine [From Remeron] Allergy (Unknown, Verified 06/07/23 10:54) moxifloxacin [From Avelox] Allergy (Unknown, Verified 06/07/23 10:54) naproxen [From Naprelan] Allergy (Unknown, Verified 06/07/23 10:54) neomycin [From Neosporin ([id number])] Allergy (Unknown, Verified 06/07/23 10:54) oxycodone [From Percodan] Allergy (Unknown, Verified 06/07/23 10:54) polymyxin B [From Neosporin ([id number])] Allergy (Unknown, Verified 06/07/23 10:54) prednisone Allergy (Unknown, Verified 06/07/23 10:54) pregabalin [From Lyrica] Allergy (Unknown, Verified 06/07/23 10:54) promethazine [From Phenergan] Allergy (Unknown, Verified 06/07/23 10:54) sulindac [From Clinoril] Allergy (Unknown, Verified 06/07/23 10:54) venlafaxine [From Effexor] Allergy (Unknown, Verified 06/07/23 10:54) cephalexin [From Keflex] Adverse Reaction (Unknown, Verified 06/07/23 10:54) Nausea Home Medications: Cholecalciferol (Vitamin D3) [Vitamin D3] 2,000 unit PO DAILY 03/22/18 [History] Nebivolol HCl [Bystolic] 10 mg PO DAILY 03/10/19 [History] Levothyroxine Sodium [Euthyrox] 75 mcg PO UD 02/07/21 [History] Amlodipine Besylate 5 mg [Norvasc 5 mg] 5 mg PO DAILY 12/10/21 [History] Atorvastatin Calcium [Lipitor] 20 mg PO DAILY 12/10/21 [History] Memantine HCl 5 mg [Namenda 5 MG] 5 mg PO DAILY 06/07/23 [History] Mirtazapine 15 mg PO HS 06/07/23 [History] Omeprazole 40 mg PO DAILY 06/07/23 [History] Hx Tetanus, Diphtheria Vaccination/Date Given: Yes Hx Influenza Vaccination/Date Given: No Hx Pneumococcal Vaccination/Date Given: Yes Travel Risk - International Travel Have you traveled outside of the country in past 3 weeks: No - Coronavirus Screening Are you exhibiting any of the following symptoms?: Yes Symptoms: Fever Close contact with a COVID-19 positive Pt in past 14-21 Days: No - Vaccine Status Have you recieved a Covid-19 vaccination: Yes Ore Sampler: Root4 - Vaccination Dates Dates if Unknown: ? - Review of Systems All Other Systems: Unable due to condition - Past Medical History Pertinent Past Medical History: Yes Neurological History: No Pertinent History ENT History: No Pertinent History Cardiac History: High Cholesterol, Hypertension Respiratory History: No Pertinent History Endocrine Medical History: Diabetes Type II, Hypothyroidism Musculoskeletal History: No Pertinent History GI Medical History: Hemorrhoids History: Renal Disease Psycho-Social History: No Pertinent History Female Reproductive Disorders: No Pertinent History Other Medical History: right femur fracture, hemodialysis patient (Dr. Leo), skin CA, arthritis - Past Surgical History Past Surgical History: Yes Neuro Surgical History: No Pertinent History Cardiac: Cardiac Stent Respiratory: No Pertinent History Gastrointestinal: Cholecystectomy, Hemorrhoidectomy Genitourinary: No Pertinent History Musculoskeletal: Other Female Surgical History: Hysterectomy Other Surgical History: breast reduction, breast repair, lumps removed both breasts, feet surgery (unknown), Biopsy of thyroid, Kyphoplasty of L1 and L5 by Dr. Hill on 03/26/22 Significant Family History: no pertinent family hx - Social History Smoking Status: Never smoker Exposure to second hand smoke: No Drug Use: none Patient Lives Alone: No (detention) - Nursing Vital Signs Nursing Vital Signs: Initial Vital Signs Temperature 100.2 F 06/21/23 10:29 Pulse Rate 107 H 06/21/23 10:29 Respiratory Rate 24 06/21/23 10:29 Blood Pressure 124/63 06/21/23 10:29 O2 Sat by Pulse Oximetry 93 L 06/21/23 10:29 Pain Scale Pain Intensity 0 - Physical Exam SpO2 Interpretation: normal SpO2: 93 Comments: 06/21/23 11:19 Physical Exam Vitals signs and nursing note reviewed. Constitutional: Appearance: Patient is cachectic, confused, intermittently following directions HENT: Head: Normocephalic and atraumatic. Patient is in c-collar Eyes: Conjunctiva/sclera: Conjunctivae normal. Neck: Trachea: No tracheal deviation. Cardiovascular: Rate and Rhythm: Tachycardia, sinus rhythm with low blood pressure Pulmonary: Effort: Pulmonary effort is normal. No respiratory distress. Abdominal: Palpations: Abdomen is soft. Musculoskeletal: General: No deformity. Skin: General: Skin is warm and dry. Neurological: Mental Status: Altered mental status, responds with verbal grunts - Course Nursing assessment & vital signs reviewed: Yes EKG Interpreted by Me: Sinus Rhythm (Sinus rhythm, rate of 103, CA interval 207, QRS is 122, QTc is 488, nonspecific ST changes) Ordered Tests: Active Orders 24 hr Category Date Time Status EKG-ER Only STAT Care 06/21/23 10:41 Completed IV Insertion STAT Care 06/21/23 10:41 Completed CERVICAL SPINE WO CONTRAST [CT] Stat Exams 06/21/23 10:44 Completed CHEST 1 VIEW (PORTABLE) Stat Exams 06/21/23 10:42 Completed HEAD WITHOUT CONTRAST [CT] Stat Exams 06/21/23 10:44 Completed BLOOD CULTURE Stat Lab 06/21/23 Ordered BLOOD CULTURE Stat Lab 06/21/23 11:04 Received CBC W DIFF Stat Lab 06/21/23 11:04 Completed CMP Stat Lab 06/21/23 11:04 Completed CULTURE,SPUTUM Stat Lab 06/21/23 10:42 Ordered CULTURE,URINE Stat Lab 06/21/23 10:42 Ordered Lactic Acid Stat Lab 06/21/23 10:41 Completed NT PRO BNPII Stat Lab 06/21/23 11:04 Completed PROCALCITONIN Stat Lab 06/21/23 11:04 Completed PROTIME WITH INR Stat Lab 06/21/23 11:04 Completed UA W/RFX UR CULTURE Stat Lab 06/21/23 10:42 Ordered Medication Summary Discontinued Medications Generic Name Dose Route Start Last Admin Trade Name Freq PRN Reason Stop Dose Admin Aztreonam 2 gm/ Sodium 100 mls @ 200 mls/hr 06/21/23 10:49 06/21/23 11:46 Chloride IV 06/21/23 11:18 200 mls/hr STAT ONE Administration Vancomycin HCl 1 gm in 200 mls @ 125 mls/hr 06/21/23 10:50 06/21/23 12:18 Vancomycin 1 Gram/200 Ml Bag IV 06/21/23 12:25 125 mls/hr STAT ONE 125 mls/hr Administration Sodium Chloride 1,000 mls @ 999 mls/hr 06/21/23 10:54 06/21/23 12:22 Sodium Chloride 0.9% 1000 Ml IV 06/21/23 11:54 Infused .Q1H1M STA Infusion Sodium Chloride Confirm 06/21/23 11:10 Sodium Chloride 0.9% 1000 Ml Administered 06/21/23 11:11 Dose 1,000 mls @ ud .ROUTE .STK-MED ONE Vancomycin HCl Confirm 06/21/23 11:10 Vancomycin 1 Gram/200 Ml Bag Administered 06/21/23 11:11 Dose 1 gm in 200 mls @ ud IV .STK-MED ONE Lab/Rad Data: Laboratory Result Diagrams 06/21/23 11:04 06/21/23 11:04 Laboratory Results 06/21/23 06/21/23 06/21/23 Range/Units 11:04 11:04 11:04 WBC (4.0-10.5) x10^3/uL RBC (4.1-5.4) x10^6/uL Hgb (12.0-16.0) g/dL Hct (35-47) % MCV (78-100) fL MCH (26-32) pg MCHC (32-36) g/dL RDW (11.5-14.0) % Plt Count (150-450) x10^3/uL MPV (7.5-11.0) fL Gran % (36.0-66.0) % Immature Gran % (Auto) (0.00-0.4) % Nucleat RBC Rel Count (0.00-0.1) % Eos # (Auto) (0-0.5) x10^3/uL Immature Gran # (Auto) (0.00-0.03) x10^3u/L Absolute Lymphs (auto) (1.0-4.6) x10^3/uL Absolute Monos (auto) (0.0-1.3) x10^3/uL Absolute Nucleated RBC (0.00-0.01) x10^3u/L Lymphocytes % (24.0-44.0) % Monocytes % (0.0-12.0) % Eosinophils % (0.00-5.0) % Basophils % (0.0-0.4) % Absolute Granulocytes (1.4-6.9) x10^3/uL Basophils # (0-0.4) x10^3/uL PT 12.2 (9.4-12.5) SECONDS INR 1.13 (0.8-3.0) Sodium (135-145) mmol/L Potassium (3.5-5.1) mmol/L Chloride (98-107) mmol/L Carbon Dioxide (22-30) mmol/L Anion Gap (5-15) MEQ/L BUN (7-17) mg/dL Creatinine (0.52-1.04) mg/dL Estimated GFR ML/MIN Glucose (74-106) mg/dL Lactic Acid (0.4-2.0) Calcium (8.4-10.2) mg/dL Total Bilirubin (0.2-1.3) mg/dL AST (14-36) U/L ALT (0-35) U/L Alkaline Phosphatase (38-126) U/L NT-Pro-B Natriuret Pep (<300) pg/mL Serum Total Protein (6.3-8.2) g/dL Albumin (3.5-5.0) g/dL Procalcitonin 2.590 H* (0.030-0.080) ng/mL Influenza Type A Ag NEGATIVE (NEGATIVE) Influenza Type B Ag NEGATIVE (NEGATIVE) RSV (PCR) NEGATIVE (NEGATIVE) SARS-CoV-2 (PCR) NEGATIVE (NEGATIVE) Slides for Path Review 06/21/23 06/21/23 06/21/23 Range/Units 11:04 11:04 10:41 WBC 29.1 H* (4.0-10.5) x10^3/uL RBC 3.69 L (4.1-5.4) x10^6/uL Hgb 11.5 L (12.0-16.0) g/dL Hct 35.9 (35-47) % MCV 97.3 (78-100) fL MCH 31.2 (26-32) pg MCHC 32.0 (32-36) g/dL RDW 17.6 H (11.5-14.0) % Plt Count 696 H (150-450) x10^3/uL MPV 11.3 H (7.5-11.0) fL Gran % 90.0 H (36.0-66.0) % Immature Gran % (Auto) 1.2 H (0.00-0.4) % Nucleat RBC Rel Count 0.0 (0.00-0.1) % Eos # (Auto) 0 (0-0.5) x10^3/uL Immature Gran # (Auto) 0.36 H (0.00-0.03) x10^3u/L Absolute Lymphs (auto) 1.14 (1.0-4.6) x10^3/uL Absolute Monos (auto) 1.32 H (0.0-1.3) x10^3/uL Absolute Nucleated RBC 0.00 (0.00-0.01) x10^3u/L Lymphocytes % 3.9 L (24.0-44.0) % Monocytes % 4.5 (0.0-12.0) % Eosinophils % 0.0 (0.00-5.0) % Basophils % 0.4 (0.0-0.4) % Absolute Granulocytes 26.18 H (1.4-6.9) x10^3/uL Basophils # 0.12 (0-0.4) x10^3/uL PT (9.4-12.5) SECONDS INR (0.8-3.0) Sodium 140 (135-145) mmol/L Potassium 4.8 (3.5-5.1) mmol/L Chloride 100 (98-107) mmol/L Carbon Dioxide 19 L (22-30) mmol/L Anion Gap 26.1 H (5-15) MEQ/L BUN 98 H (7-17) mg/dL Creatinine 6.51 H (0.52-1.04) mg/dL Estimated GFR 5.9 ML/MIN Glucose 172 H (74-106) mg/dL Lactic Acid 1.3 (0.4-2.0) Calcium 10.0 (8.4-10.2) mg/dL Total Bilirubin 0.60 (0.2-1.3) mg/dL AST 31 (14-36) U/L ALT 23 (0-35) U/L Alkaline Phosphatase 108 (38-126) U/L NT-Pro-B Natriuret Pep 7230 (<300) pg/mL Serum Total Protein 6.7 (6.3-8.2) g/dL Albumin 3.5 (3.5-5.0) g/dL Procalcitonin (0.030-0.080) ng/mL Influenza Type A Ag (NEGATIVE) Influenza Type B Ag (NEGATIVE) RSV (PCR) (NEGATIVE) SARS-CoV-2 (PCR) (NEGATIVE) Slides for Path Review YES - Progress Progress: improved Progress Note: 06/21/23 11:21 Patient meeting sepsis criteria at this point in time broad-spectrum antibiotic s, appropriate labs, appropriate fluid resuscitation, patient will likely need to be admitted to the hospital. Will look for a source of infection including blood culture, urine culture, chest x-ray. Will also obtain a head CT, CT C- spine given the patient's recent fractures there. Patient does have a cephalosporin allergy therefore we will do Azactam and vancomycin as our antibiotics. 06/21/23 13:37 Patient found to be septic from right middle lobe pneumonia. Continue antibiotics as above. We did discuss with [facility] for transfer. This is given patient's daughter's request. We did inform them of previous C1 and C7, T3 fractures. Nothing new or different about these fractures on CT scan. They have not changed, become unstable. Head CT remains negative. Patient was auto accepted by [facility] under Dr. Owens. I did not speak with him we only spoke to transfer nurse. Patient's vital signs improved here with broad-spectrum antibiotics and fluids. I do anticipate patient continuing to improve. Patient only be admitted to the hospital. ED critical care statement As staff physician, I have provided critical care. Time: 50 mins Criteria for critical illness: Sepsis from pneumonia with acute hypoxic respiratory failure requiring aggressive resuscitation Treatment and management provided include: Coordination of management with ETC care team, consultants, and inpatient care team. [id number] assessment of condition and response to therapy. Review and interpretation of emergent diagnostic testing. Medical chart review and completion. Direction and immediate supervision of the following therapy: Critical care was time spent personally by me on the following activities: blood draw for specimens, development of treatment plan with patient or surrogate, discussions with consultants, discussions with primary provider, interpretation of cardiac output measurements, evaluation of patient's response to treatment, examination of patient, obtaining history from patient or surrogate, ordering and performing treatments and interventions, ordering and review of laboratory studies, ordering and review of radiographic studies, pulse oximetry, re-evaluation of patient's condition and review of old charts. This time was independent of all procedures performed. Jaziel Elizabeth Counseled pt/family regarding: lab results, diagnosis, need for follow-up, rad results - Departure Departure Disposition: Transfer Clinical Impression: Sepsis, Pneumonia, C1 cervical fracture, C7 cervical fracture, Acute hypoxic respiratory failure Condition: Stable Critical Care Time: Yes Critical Care Time(excluding separately billable procedures): Critical 30-74 mins Referrals: WAYNE BOSE [Primary Care Provider] - Follow up/PCP as directed
[2023-06-21 11:22] LABS: Absolute Neutrophil Ct (ANC) 26.18 x10^3/uL (1.4-6.9); BASOPHIL % 0.4 % (0.0-0.4); Basophil (Absolute #) 0.12 x10^3/uL (0-0.4); Eosinophil (Absolute #) 0 x10^3/uL (0-0.5); Hematocrit 35.9 % (35-47); Hemoglobin 11.5 g/dL (12.0-16.0); IMMATURE GRAN # 0.36 x10^3u/L (0.00-0.03); IMMATURE GRAN % 1.2 % (0.00-0.4); Lymphocyte (Absolute #) 1.14 x10^3/uL (1.0-4.6); Lymphocytes % 3.9 % (24.0-44.0); Mean Cell Volume 97.3 fL (78-100); Mean Corpuscular Hemoglobin 31.2 pg (26-32); Mean Platelet Volume 11.3 fL (7.5-11.0); Monocyte (Absolute #) 1.32 x10^3/uL (0.0-1.3); Monocytes % 4.5 % (0.0-12.0); Platelet Count 696 x10^3/uL (150-450); Red Blood Count 3.69 x10^6/uL (4.1-5.4); Red Cell Distribution Width 17.6 % (11.5-14.0)
[2023-06-21 11:35] LABS: INR 1.13 (0.8-3.0); PROTIME 12.2 SECONDS (9.4-12.5)
[2023-06-21 11:36] LABS: ALBUMIN 3.5 g/dL (3.5-5.0); ANION GAP 26.1 MEQ/L (5-15); BILIRUBIN,TOTAL 0.6 mg/dL (0.2-1.3); Potassium 4.8 mmol/L (3.5-5.1); Total Protein 6.7 g/dL (6.3-8.2); White Blood Count 29.1 x10^3/uL (4.0-10.5)
[2023-06-21] MEDS: AZACTAM 1 GM*** 2 GM in Sodium Chloride 0.9% 100 ML IV ONE (11:46)
[2023-06-21 11:47] LABS: Creatinine 1 6.51 mg/dL (0.52-1.04); EST GLOMERULAR FILTRATION RATE 5.9 ML/MIN
[2023-06-21 11:59] LABS: INFLUENZA A NEGATIVE (NEGATIVE); INFLUENZA B NEGATIVE (NEGATIVE); RESPIRATORY SYNCTIAL VIRUS NEGATIVE (NEGATIVE); SARS-CoV-2 Xpert Express NEGATIVE (NEGATIVE)
--- NOTE | 2023-06-21 12:03 | XRAY ---
Indication: Altered mental status. Status post fall. Multiple contiguous axial images obtained through the head without contrast. 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 Again no acute intracranial hemorrhage, abnormal extra-axial fluid collection, or mass effect. Fourth ventricle is midline. Bony calvarium intact. Visualized paranasal sinuses and mastoid air cells are clear. 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
[2023-06-21 12:05] LABS: Slide Review 1 YES
--- NOTE | 2023-06-21 12:09 | XRAY ---
Indication: Status post fall. Multiple contiguous axial images obtained through the cervical spine. Sagittal and coronal reformatted images obtained. Comparison: June 07, 2023 Osseous structures remain demineralized. Stable multifocal C1 fractures and superior endplate fractures of C7/T3. T3 fracture demonstrates minimal healing sclerosis. Remaining fractures negative for healing callus formation. No new acute fracture, suspicious bony lesions, or spinal canal stenosis. Facets again demonstrates multilevel bilateral degenerative facet hypertrophy. Sagittal and coronal reformatted images again demonstrates normal alignment. No subluxation or jumped facet. Normal appearing craniocervical junction. Visualized noncontrasted soft tissues again demonstrates moderate bilateral carotid calcifications and incompletely visualized right dialysis catheter. Lung apices remain clear. Impression: Grossly stable C1/C7/T3 fractures. T3 fracture demonstrates interval healing. Again chronic findings including osteopenia, multilevel degenerative spondylosis, and bilateral carotid calcifications.
[2023-06-21] MEDS: VANCOMYCIN 1 GRAM/200 ML BAG 1 GM/200 ML PIGGYBACK IV ONE (12:18)
--- NOTE | 2023-06-21 12:35 | XRAY ---
Indication: Pneumonia. Comparison: March 26, 2022 Portable chest demonstrates new right infrahilar and lesser degree left suprahilar infiltrates/atelectasis. No consolidation/large effusion. Heart not enlarged again with CABG. New right dialysis catheter. Bony thorax intact again with osteopenia and degenerative changes. Interval T8/L2 kyphoplasty.
[2023-06-21 13:38] VITALS: O2SAT 93
[2023-06-21 13:41] VITALS: BP 123/55; PULSE 94; RESP 16
== END 2023-06-21 13:44 | disposition short-term general hospital (02) ==
LOC: ED 10:27
DX: A41.9 Sepsis, unspecified organism (principal); J18.9 Pneumonia, unspecified organism; R65.20 Severe sepsis without septic shock; J96.01 Acute respiratory failure with hypoxia; S12.000A Unspecified displaced fracture of first cervical vertebra, initial encounter for closed fracture; S12.601A Unspecified nondisplaced fracture of seventh cervical vertebra, initial encounter for closed fracture; R41.0 Disorientation, unspecified; R50.9 Fever, unspecified; E78.5 Hyperlipidemia, unspecified; I10 Essential (primary) hypertension; E11.9 Type 2 diabetes mellitus without complications; Z79.899 Other long term (current) drug therapy
CPT/HCPCS: 0241U; 36000; 36415; 70450; 71045; 72125; 80053; 83605; 83880; 84145; 85025; 85610; 87040; 93005; 96360; 96374; 99285; J3370

== ENCOUNTER 2023-07-04 10:48 | Emergency (ER) | payer MEDICARE ==
[2023-07-04 11:57] LABS: Absolute Neutrophil Ct (ANC) 15.53 x10^3/uL (1.4-6.9); BASOPHIL % 0.5 % (0.0-0.4); Eosinophil % 0.9 % (0.00-5.0); Eosinophil (Absolute #) 0.18 x10^3/uL (0-0.5); Hematocrit 32.2 % (35-47); Hemoglobin 9.8 g/dL (12.0-16.0); IMMATURE GRAN # 0.68 x10^3u/L (0.00-0.03); IMMATURE GRAN % 3.3 % (0.00-0.4); Lymphocyte (Absolute #) 2.83 x10^3/uL (1.0-4.6); Lymphocytes % 13.9 % (24.0-44.0); Mean Cell Volume 100.6 fL (78-100); Mean Corpuscular Hemoglobin 30.6 pg (26-32); Mean Corpuscular Hgb Concent. 30.4 g/dL (32-36); Mean Platelet Volume 11.7 fL (7.5-11.0); Monocyte (Absolute #) 1.02 x10^3/uL (0.0-1.3); Neutrophil % 76.4 % (36.0-66.0); Platelet Count 417 x10^3/uL (150-450); Red Cell Distribution Width 18.9 % (11.5-14.0); White Blood Count 20.3 x10^3/uL (4.0-10.5)
[2023-07-04 12:13] VITALS: O2SAT 97
[2023-07-04 12:13] LABS: ANION GAP 13.9 MEQ/L (5-15); BILIRUBIN,TOTAL 0.7 mg/dL (0.2-1.3); Calcium 8.9 mg/dL (8.4-10.2); Creatinine 1 3.22 mg/dL (0.52-1.04); EST GLOMERULAR FILTRATION RATE 13.8 ML/MIN; MAGNESIUM 1.8 mg/dL (1.6-2.3); Potassium 4.5 mmol/L (3.5-5.1); Total Protein 5.7 g/dL (6.3-8.2)
[2023-07-04] MEDS: VANCOMYCIN 1 GRAM/200 ML BAG 1 GM/200 ML PIGGYBACK IV SCH (13:07)
[2023-07-04 13:18] VITALS: RESP 18
--- NOTE | 2023-07-04 13:19 | ERPHSYRPT ---
- History of Present Illness Time Seen by Provider: 07/04/23 11:43 Source: patient, EMS, senior living records Exam Limitations: clinical condition Patient Subjective Stated Complaint: Faviola, the patient's nurse from [facility] states she is sending patient to the ER for evaluation and treatment for lethargy. EMS states that patient is being seen for "not acting her normal" intermittently for a few days. Patient without any specific complaints upon arrival. Triage Nursing Assessment: Patient arrived by ambulance. She is wearing a c- collar. No SOB. Skin is hot touch. Patient is awake but not alert. She will answer most questions with a delayed response but does not respond to all questions. Patient's answers are appropriate at times but not appropriate at other times. She moans and yells out if touched anywhere. She answers "yes" when asked if she is in pain but will not states where she is having the pain. Permacath located to patient's right chest; she indicates this is for hemodialysis but can't state when/what days she does hemodialysis. Midline present to RUE. Dressing to coccyx removed. Unstageable pressure injury present under dressing measuring 7.5cm X 4.5cm X ? Unable to measure depth due to wound bed 75% covered in yellow slough and 25% covered in escar. Area if foul smelling with purulent drainage. Periwound is red, warm, swollen. Wound margins are irregular. An unstageable pressure injury is also present to right inner heel, circular in shape, closed, measuring 1.5cm X 1.8cm. Area is brown/necrotic and hard. Periwound is red and mushy. Possible deep tissue injury present to left inner heel. Circular in shape measuring 1.2cm X 1.5cm. 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 Patient is awake alert but not oriented. Moving all extremities. Not in any respiratory distress. Patient is answering only few questions and has c-collar on for cervical spine fractures for quite some time. No fever or chills reported. History is limited. Allergies/Adverse Reactions: amoxicillin [From Augmentin] Allergy (Unknown, Verified 07/04/23 11:46) pt states "i don't really know why all those are on my list and i have never had a really bad reaction from anything". aspirin Allergy (Unknown, Verified 07/04/23 11:46) bacitracin [From Neosporin ([id number])] Allergy (Unknown, Verified 07/04/23 11:46) betamethasone [From Lotrisone] Allergy (Unknown, Verified 07/04/23 11:46) cefpodoxime [From Vantin] Allergy (Unknown, Verified 07/04/23 11:46) cetirizine [From Zyrtec] Allergy (Unknown, Verified 07/04/23 11:46) ciprofloxacin [From Cipro] Allergy (Unknown, Verified 07/04/23 11:46) clavulanic acid [From Augmentin] Allergy (Unknown, Verified 07/04/23 11:46) clotrimazole [From Lotrisone] Allergy (Unknown, Verified 07/04/23 11:46) codeine Allergy (Unknown, Verified 07/04/23 11:46) enalaprilat [From Vasotec] Allergy (Unknown, Verified 07/04/23 11:46) fluconazole [From Diflucan] Allergy (Unknown, Verified 07/04/23 11:46) gabapentin [From Neurontin] Allergy (Unknown, Verified 07/04/23 11:46) halobetasol [From Ultravate] Allergy (Unknown, Verified 07/04/23 11:46) itraconazole [From Sporanox] Allergy (Unknown, Verified 07/04/23 11:46) ketoconazole [From Nizoral] Allergy (Unknown, Verified 07/04/23 11:46) lansoprazole [From Prevacid] Allergy (Unknown, Verified 07/04/23 11:46) levofloxacin [From Levaquin] Allergy (Unknown, Verified 07/04/23 11:46) metformin Allergy (Unknown, Verified 07/04/23 11:46) mirtazapine [From Remeron] Allergy (Unknown, Verified 07/04/23 11:46) moxifloxacin [From Avelox] Allergy (Unknown, Verified 07/04/23 11:46) naproxen [From Naprelan] Allergy (Unknown, Verified 07/04/23 11:46) neomycin [From Neosporin ([id number])] Allergy (Unknown, Verified 07/04/23 11:46) oxycodone [From Percodan] Allergy (Unknown, Verified 07/04/23 11:46) polymyxin B [From Neosporin ([id number])] Allergy (Unknown, Verified 07/04/23 11:46) prednisone Allergy (Unknown, Verified 07/04/23 11:46) pregabalin [From Lyrica] Allergy (Unknown, Verified 07/04/23 11:46) promethazine [From Phenergan] Allergy (Unknown, Verified 07/04/23 11:46) sulindac [From Clinoril] Allergy (Unknown, Verified 07/04/23 11:46) venlafaxine [From Effexor] Allergy (Unknown, Verified 07/04/23 11:46) cephalexin [From Keflex] Adverse Reaction (Unknown, Verified 07/04/23 11:46) Nausea Home Medications: Cholecalciferol (Vitamin D3) [Vitamin D3] 2,000 unit PO DAILY 03/22/18 [History] Nebivolol HCl [Bystolic] 10 mg PO DAILY 03/10/19 [History] Levothyroxine Sodium [Euthyrox] 75 mcg PO UD 02/07/21 [History] Amlodipine Besylate 5 mg [Norvasc 5 mg] 5 mg PO DAILY 12/10/21 [History] Atorvastatin Calcium [Lipitor] 20 mg PO DAILY 12/10/21 [History] Memantine HCl 5 mg [Namenda 5 MG] 5 mg PO DAILY 06/07/23 [History] Mirtazapine 15 mg PO HS 06/07/23 [History] Omeprazole 40 mg PO DAILY 06/07/23 [History] Hx Tetanus, Diphtheria Vaccination/Date Given: Yes Hx Influenza Vaccination/Date Given: Yes (01/06/23) Hx Pneumococcal Vaccination/Date Given: Yes (01/14/18) Immunizations Up to Date: Yes Travel Risk - International Travel Have you traveled outside of the country in past 3 weeks: No - Emerging Infectious Disease Are you exhibiting symptoms associated with any current EIDs: Yes Symptoms: Headaches/Body Aches/ Comment: Currently being treated for VRE infection - Review of Systems All Other Systems: Unable due to dementia - Past Medical History Pertinent Past Medical History: Yes Neurological History: Dementia ENT History: No Pertinent History Cardiac History: Coronary Artery Disease, High Cholesterol, Hypertension Respiratory History: No Pertinent History Endocrine Medical History: Diabetes Type II, Hypothyroidism Musculoskeletal History: Fractures, Other GI Medical History: GERD, Gallbladder Disease, Hemorrhoids History: Renal Disease Psycho-Social History: Anxiety, Depression Female Reproductive Disorders: No Pertinent History Other Medical History: right femur fracture, hemodialysis patient (Dr. Leo), skin CA, arthritis, Ankylosing hyperostosis (forestier) thoracic region, displaced fracture of base of neck of right femur, ESRD, hyponatremia, displaced fracture of seventh cervical vertebra, displaced lateral mass fracture of first cervical vertebra, esophagitis, a-fib, fracture of third thoracic vertebra - Past Surgical History Past Surgical History: Yes Neuro Surgical History: No Pertinent History Cardiac: Cardiac Catheterization, Cardiac Stent Respiratory: No Pertinent History Gastrointestinal: Cholecystectomy, Hemorrhoidectomy Genitourinary: No Pertinent History Musculoskeletal: Other Female Surgical History: Hysterectomy Other Surgical History: breast reduction, breast repair, lumps removed both breasts, feet surgery (unknown), Biopsy of thyroid, Kyphoplasty of L1 and L5 by Dr. Hill on 03/26/22 Significant Family History: no pertinent family hx - Social History Smoking Status: Never smoker Exposure to second hand smoke: No Drug Use: none Patient Lives Alone: No (senior living) - Nursing Vital Signs Nursing Vital Signs: Initial Vital Signs Temperature 99.4 F 07/04/23 10:49 Pulse Rate 99 H 07/04/23 10:49 Respiratory Rate 16 07/04/23 10:49 Blood Pressure 127/55 07/04/23 10:49 O2 Sat by Pulse Oximetry 96 07/04/23 10:49 Pain Scale Pain Intensity 0 - Physical Exam General Appearance: no apparent distress, alert, cachetic Eye Exam: PERRL/EOMI Ears, Nose, Throat Exam: moist mucous membranes Neck Exam: normal inspection, other (C-collar in place) Respiratory Exam: normal breath sounds, lungs clear Cardiovascular Exam: regular rate/rhythm, normal heart sounds Gastrointestinal/Abdomen Exam: soft, No normal bowel sounds, No tenderness Back Exam: other (Decubitus in the sacrum area stage III with erythema and redness around. Almost 7 cm time 6 cm.) Extremity Exam: normal inspection Neurologic Exam: alert, No oriented x 3, No cooperative, No normal mood/affect, No motor deficits (No obvious deficit) Skin Exam: normal color, rash, decubitus (Bilateral heels and sacrum) SpO2 Interpretation: normal SpO2: 97 O2 Delivery: Room Air Ordered Tests: Active Orders 24 hr Category Date Time Status Medical Art Therapist STAT Care 07/04/23 11:34 Active EKG-ER Only STAT Care 07/04/23 11:33 Active IV Insertion STAT Care 07/04/23 11:33 Active NPO (ED) STAT Care 07/04/23 11:33 Active CHEST 1 VIEW (PORTABLE) Stat Exams 07/04/23 12:06 Taken BLOOD CULTURE Stat Lab 07/04/23 11:36 Received CBC W DIFF Stat Lab 07/04/23 11:20 Completed CMP Stat Lab 07/04/23 11:20 Completed CULTURE,URINE Stat Lab 07/04/23 11:34 Ordered Lactic Acid Stat Lab 07/04/23 11:35 Completed MAGNESIUM Stat Lab 07/04/23 11:20 Completed PROCALCITONIN Stat Lab 07/04/23 11:20 Completed UA W/RFX UR CULTURE Stat Lab 07/04/23 11:34 Ordered Medication Summary Generic Name Dose Route Start Last Admin Trade Name Freq PRN Reason Stop Dose Admin Vancomycin HCl 1 gm in 200 mls @ 125 mls/hr 07/04/23 13:00 07/04/23 13:07 Vancomycin 1 Gram/200 Ml Bag IV 08/03/23 12:59 Not Given Q12H JOSE ANTONIO Lab/Rad Data: Laboratory Result Diagrams 07/04/23 11:20 07/04/23 11:20 Laboratory Results 07/04/23 07/04/23 07/04/23 Range/Units 11:35 11:20 11:20 WBC (4.0-10.5) x10^3/uL RBC (4.1-5.4) x10^6/uL Hgb (12.0-16.0) g/dL Hct (35-47) % MCV (78-100) fL MCH (26-32) pg MCHC (32-36) g/dL RDW (11.5-14.0) % Plt Count (150-450) x10^3/uL MPV (7.5-11.0) fL Gran % (36.0-66.0) % Immature Gran % (Auto) (0.00-0.4) % Nucleat RBC Rel Count (0.00-0.1) % Eos # (Auto) (0-0.5) x10^3/uL Immature Gran # (Auto) (0.00-0.03) x10^3u/L Absolute Lymphs (auto) (1.0-4.6) x10^3/uL Absolute Monos (auto) (0.0-1.3) x10^3/uL Absolute Nucleated RBC (0.00-0.01) x10^3u/L Lymphocytes % (24.0-44.0) % Monocytes % (0.0-12.0) % Eosinophils % (0.00-5.0) % Basophils % (0.0-0.4) % Absolute Granulocytes (1.4-6.9) x10^3/uL Basophils # (0-0.4) x10^3/uL Sodium 137 (135-145) mmol/L Potassium 4.5 (3.5-5.1) mmol/L Chloride 100 (98-107) mmol/L Carbon Dioxide 28 (22-30) mmol/L Anion Gap 13.9 (5-15) MEQ/L BUN 32 H (7-17) mg/dL Creatinine 3.22 H (0.52-1.04) mg/dL Estimated GFR 13.8 ML/MIN Glucose 110 H (74-106) mg/dL Lactic Acid 1.1 (0.4-2.0) Calcium 8.9 (8.4-10.2) mg/dL Magnesium 1.8 (1.6-2.3) mg/dL Total Bilirubin 0.70 (0.2-1.3) mg/dL AST 22 (14-36) U/L ALT 11 (0-35) U/L Alkaline Phosphatase 90 (38-126) U/L Serum Total Protein 5.7 L (6.3-8.2) g/dL Albumin 3.0 L (3.5-5.0) g/dL Procalcitonin 0.582 H (0.030-0.080) ng/mL 07/04/23 Range/Units 11:20 WBC 20.3 H (4.0-10.5) x10^3/uL RBC 3.20 L (4.1-5.4) x10^6/uL Hgb 9.8 L (12.0-16.0) g/dL Hct 32.2 L (35-47) % MCV 100.6 H (78-100) fL MCH 30.6 (26-32) pg MCHC 30.4 L (32-36) g/dL RDW 18.9 H (11.5-14.0) % Plt Count 417 (150-450) x10^3/uL MPV 11.7 H (7.5-11.0) fL Gran % 76.4 H (36.0-66.0) % Immature Gran % (Auto) 3.3 H (0.00-0.4) % Nucleat RBC Rel Count 0.0 (0.00-0.1) % Eos # (Auto) 0.18 (0-0.5) x10^3/uL Immature Gran # (Auto) 0.68 H (0.00-0.03) x10^3u/L Absolute Lymphs (auto) 2.83 (1.0-4.6) x10^3/uL Absolute Monos (auto) 1.02 (0.0-1.3) x10^3/uL Absolute Nucleated RBC 0.00 (0.00-0.01) x10^3u/L Lymphocytes % 13.9 L (24.0-44.0) % Monocytes % 5.0 (0.0-12.0) % Eosinophils % 0.9 (0.00-5.0) % Basophils % 0.5 (0.0-0.4) % Absolute Granulocytes 15.53 H (1.4-6.9) x10^3/uL Basophils # 0.10 (0-0.4) x10^3/uL Sodium (135-145) mmol/L Potassium (3.5-5.1) mmol/L Chloride (98-107) mmol/L Carbon Dioxide (22-30) mmol/L Anion Gap (5-15) MEQ/L BUN (7-17) mg/dL Creatinine (0.52-1.04) mg/dL Estimated GFR ML/MIN Glucose (74-106) mg/dL Lactic Acid (0.4-2.0) Calcium (8.4-10.2) mg/dL Magnesium (1.6-2.3) mg/dL Total Bilirubin (0.2-1.3) mg/dL AST (14-36) U/L ALT (0-35) U/L Alkaline Phosphatase (38-126) U/L Serum Total Protein (6.3-8.2) g/dL Albumin (3.5-5.0) g/dL Procalcitonin (0.030-0.080) ng/mL - Progress Progress: unchanged Progress Note: 07/04/23 13:27 82 years old is evaluated for increasing confusion/lethargy and not acting at her baseline. Patient has baseline dementia as well. She has chronic C-spine fracture and has c-collar on. Patient is able to move all 4 extremities. Patient has significant decubitus in the sacral area with some erythema. She has no fever. Workup showed white count of 20 K, lactate of 1.1 and procalcitonin 1.58. Patient has received a dose of meropenem prior to arrival. Cultures are obtained. Chest x-ray negative for any acute cardiopulmonary findings reviewed by me, official report is pending. EKG showed sinus rhythm at a rate of 92 bpm with no acute ST elevations. I believe patient has sepsis and possible sources that decubitus. Since patient has been started on meropenem 3 days ago based on culture sensitivities and she is allergic to multiple antibiotics, I would not start her on new antibiotics and will leave it up to the admitting attending but patient needs further workup to find the source of sepsis. Since patient is on dialysis, cannot be admitted here with no nephrology services, discussed with Dr. Yang at [facility], reviewed history, workup and agreed with transfer. Results of workup and plan of care discussed with patient but she does not seems to be quite understanding everything. Will call POA. Counseled pt/family regarding: lab results, diagnosis, rad results Medical Desision Making - Discussion of managment Care discussed with:: on-call "doc" (Dr. Yang [facility]) Reviewed:: Test results, Need for additional workup Agreed on:: Treatment plan Will see patient: in ED - Diagnostic Testing Diagnostic test were ordered, analyzed, and reviewed by me: Yes Radiological Interpretation: Interpreted by me, Reviewed by me - Risk of complications The pt has a high risk of morbidity or mortality based on: Decision regarding hospitilization or escalation of hosp level of care - Departure Departure Disposition: Transfer Clinical Impression: VRE (vancomycin-resistant Enterococci) infection, Sepsis, ESRD (end stage renal disease) on dialysis Condition: Stable Critical Care Time: No Referrals: WAYNE BOSE [Primary Care Provider] - Follow up/PCP as directed
[2023-07-04 13:51] VITALS: BP 167/60; PULSE 72; TEMP 99.6
--- NOTE | 2023-07-04 19:51 | XRAY ---
Indication: Fever. Comparison: June 21, 2023 Portable chest is now clear. Heart not enlarged again with right dialysis catheter. No new/acute cardiopulmonary abnormalities.
== END 2023-07-04 14:22 | disposition short-term general hospital (02) ==
LOC: ED 10:48
DX: A41.81 Sepsis due to Enterococcus (principal); Z16.21 Resistance to vancomycin; R53.1 Weakness; I12.0 Hypertensive chronic kidney disease with stage 5 chronic kidney disease or end stage renal disease; E11.22 Type 2 diabetes mellitus with diabetic chronic kidney disease; N18.6 End stage renal disease; E78.5 Hyperlipidemia, unspecified; Z79.899 Other long term (current) drug therapy; Z99.2 Dependence on renal dialysis
CPT/HCPCS: 36000; 36415; 71045; 80053; 83605; 83735; 84145; 85025; 87040; 93005; 93041; 99285